=== PATIENT | female | born 1945 | race Caucasian/White ===

== ENCOUNTER 2017-09-29 12:20 | Inpatient (IN) | payer OTHER ==
--- NOTE | 2017-09-29 13:00 | EKG ---
Test Date: 2017-09-29 Test Time: 12:33:15 Epidemiology Investigator: CAROL MEASUREMENT RESULTS: Intervals: Rate: 94 NV: 144 QRSD: 68 QT: 380 QTc: 475 [place]: P: 80 NV: 144 QRS: 84 T: 90 INTERPRETIVE STATEMENTS: Normal sinus rhythm Nonspecific ST abnormality Abnormal ECG Compared to ECG 09/03/2017 08:04:17 ST (T wave) deviation now present Sinus tachycardia no longer present Electronically Signed On 09-29-17 13:00:18 CDT by Jose Patiño
--- NOTE | 2017-09-29 13:24 | RAD REPORT ---
EXAM DESCRIPTION: CT - Ct Stroke Brain Wo Cont - 09/29/2017 1:14 pm CLINICAL HISTORY: Confusion, altered consciousness. COMPARISON: 09/03/2017, 01/25/2016, 09/13/2011 TECHNIQUE: All CT scans are performed using dose optimization technique as appropriate and may inclu de automated exposure control or mA/KV adjustment according to patient size. FINDINGS: No intracranial hemorrhage, hydrocephalus or extra-axial fluid collection.Area of gliosis is seen in the right parietal lobe, compatible with prior infarct.No areas of brain edema or evidence of midline shift. Mild fluid is seen in both maxillary antra. The calvarium is intact. IMPRESSION: No acute intracranial abnormality. Mild fluid in both maxillary antra. Old right parietal lobe infarct. The findings were discussed with Dr. Ariza in the ER on 09/29/2017 at 1:21 p.m. by telephone..
--- NOTE | 2017-09-29 13:46 | RAD REPORT ---
EXAM DESCRIPTION: RAD - Chest Single View - 09/29/2017 1:39 pm CLINICAL HISTORY: Diarrhea, hypertension COMPARISON: 09/03/2017 FINDINGS: Portable technique limits examination quality. The lungs are grossly clear. The heart is normal in size. No displaced fractures.Mild aortic atherosc lerosis. IMPRESSION: No acute intrathoracic process suspected.
[2017-09-29] MEDS ORDERED: NA CHLORIDE 0.9% 1,000 ML ONE ×2 (13:54→17:22)
[2017-09-29 14:31] LABS: Absolute Lymphocytes (CBC) 1.1 K/uL (0.7-4.9); Absolute Monocytes 0.9 K/uL (0.1-1.3); Absolute Neutrophil 21.4 K/uL (1.8-8.0); Basophils % 0.2 % (0-1.3); Hematocrit 27.8 % (36.0-45.0); Lymphocytes % 4.8 % (15.3-44.8); MCV 87.7 fL (80-100); MPV 8.5 fL (7.6-11.3); Monocytes % 3.9 % (3.3-12.3); RBC Red Blood Cell Count 3.17 M/uL (3.86-4.86)
[2017-09-29 14:45] LABS: Protime INR 1.82
[2017-09-29 14:46] LABS: Bilirubin Direct 0.2 mg/dL (0-0.2); Bilirubin Total 0.9 mg/dL (0.3-1.2); Protein, Total 5.3 g/dL (6.0-8.3)
[2017-09-29 14:47] LABS: CKMB Creatine Kinase MB 2.8 ng/ml (0.3-4.0)
[2017-09-29 14:48] LABS: Potassium 3.9 mEq/L (3.6-5.0)
[2017-09-29 14:53] LABS: Anisocytosis 1+; Blood Morphology Comment NOTED (NOT SEEN); Platelet Estimate INCR; Platelets, Giant 3
[2017-09-29 14:57] LABS: Albumin 1.7 g/dL (3.2-5.5)
--- NOTE | 2017-09-29 15:11 | ER ---
Nurse's Notes [facility] Name: Celina Granger Age: 71 yrs Sex: Female : 1945 Arrival Date: 09/29/2017 Time: 12:33 Bed 3 Private MD: Diagnosis: Other specified sepsis;Metabolic acidemia, unspecified;Altered mental status, unspecified;Urinary tract infection, site not specified Presentation: 09/29 12:33 Presenting complaint: EMS states: Altered mental status since Friday. Also report aj patient is more pale than usual. Patient is alert and oriented X 2. detention reports HX of diarrhea x 2 months, with recent ABX TX. Transition of care: patient was not received from another setting of care. Onset of symptoms was September 27, 2017. Care prior to arrival: None. 12:33 Method Of Arrival: EMS: [facility] 12:33 Acuity: JESSE 3 aj Triage Assessment: 12:38 General: Appears in no apparent distress. ill, slender, Behavior is calm, cooperative. aj Pain: Denies pain. Neuro: Level of Consciousness is awake, confused, lethargic, Oriented to person, place. Cardiovascular: Capillary refill < 3 seconds in bilateral fingers. Respiratory: Airway is patent Respiratory effort is even, unlabored, Respiratory pattern is regular, symmetrical. GI: Parent/caregiver reports the patient having diarrhea. Derm: Skin is intact, is healthy with good turgor, Skin is pink, warm \T\ dry. normal. Historical: - Allergies: 12:38 No Known Allergies; aj - Home Meds: 12:38 acetaminophen 325 mg Oral tab 2 tabs every 4 hours [Active]; amlodipine 5 mg tab 1 tab aj once daily [Active]; amoxicillin-pot clavulanate 875-125 mg Oral tab 1 tab every 12 hours [Active]; Ativan 0.5 mg Oral tab 1 tab 3 times per day [Active]; aspirin 81 mg Oral TbEC 1 tab once daily [Active]; atorvastatin 40 mg Oral tab 1 tab once daily [Active]; carvedilol 12.5 mg Oral tab 1 tab 2 times per day [Active]; clopidogrel 75 mg Oral tab 1 tab once daily [Active]; Diflucan 200 mg Oral tab 2 tabs once daily [Active]; Colace 100 mg Oral cap 1 cap once daily [Active]; Flagyl 500 mg Oral tab 1 tab 3 times per day [Active]; ipratropium-albuterol 0.5 mg-3 mg(2.5 mg base)/3 mL Inhl nebu twice a day [Active]; loperamide 2 mg Oral tab 1 tabs every 6 hours [Active]; Phenergan Oral 25 mg every 8 hours [Active]; potassium chloride 20 mEq Oral TbER 1 tab once daily [Active]; Protonix 40 mg Oral TbEC 1 tab once daily [Active]; psyllium husk powder [Active]; sucralfate 1 gram/10 mL Oral susp 10 mL 4 times per day [Active]; tramadol 50 mg Oral tab 1 tab every 6 hours [Active]; zinc sulfate 220 mg Oral tab 1 cap twice a day [Active]; - PMHx: 12:38 Acute Kidney Failure; Anxiety; CAD; COPD; GERD; Hyperlipidemia; Hypertension; Irritable aj bowel syndrome; Anemia; - PSHx: 12:38 Cholecystectomy; aj - Immunization history:: Adult Immunizations up to date. - Social history:: Smoking status: Patient/guardian denies using tobacco. Screenin:41 Abuse screen: Denies threats or abuse. Denies injuries from another. Nutritional aj screening: No deficits noted. Tuberculosis screening: No symptoms or risk factors identified. Fall Risk None identified. Assessment: 12:41 Reassessment: See triage. aj 13:38 Reassessment: Patient appears in no apparent distress at this time. No changes from aj previously documented assessment. Patient and/or family updated on plan of care and expected duration. Pain level reassessed. Son is at bedside. Patient rotated to left side with blankets placed under right side. Provided another blanket. 18:13 Reassessment: Patient appears in no apparent distress at this time. No changes from aj previously documented assessment. Patient and/or family updated on plan of care and expected duration. Pain level reassessed. Patient is alert, oriented x 3, equal unlabored respirations, skin warm/dry/pink. Patient states symptoms have improved. Vital Signs: 12:38 BP 126 / 77; Pulse 91; Resp 25; Temp 98.0; Pulse Ox 94% on 2 lpm NC; Weight 52.16 kg; aj Height 5 ft. 2 in. (157.48 cm); 13:38 BP 106 / 91; Pulse 89; Resp 23; Pulse Ox 100% on 3 lpm NC; aj 15:08 BP 123 / 68; Pulse 94; Resp 20; Pulse Ox 100% on 3 lpm NC; aj 15:34 BP 119 / 85; Pulse 94; Resp 26; Pulse Ox 99% on 3 lpm NC; aj 18:05 BP 123 / 89; Pulse 96; Resp 18; Pulse Ox 98% on 3 lpm NC; aj 12:38 Body Mass Index 21.03 (52.16 kg, 157.48 cm) aj ED Course: 12:33 Patient arrived in ED. aj 12:35 Triage completed. aj 12:38 Arm band placed on left wrist. Patient placed in an exam room, on a stretcher, on aj oxygen, on quality assurance monitor body, on pulse oximetry. EKG completed in triage. Results shown to MD. 12:39 Ranjith Finney MD is Attending Physician. tw4 12:41 Patient has correct armband on for positive identification. Placed in gown. Bed in low aj position. Side rails up X2. bus monitor on. Pulse ox on. NIBP on. 12:41 Missed attempt(s): 22 gauge in left antecubital area. Bleeding controlled, band aid aj applied, catheter tip intact. 12:43 Sharmaine Verma, RN is Primary Nurse. aj 13:15 CT Stroke Brain w/o Contrast In Process Unspecified. EDMS 13:19 CT completed. Patient tolerated procedure well. Patient moved to CT via stretcher. ks Patient moved back from CT. 13:27 X-ray completed. Portable x-ray completed in exam room. Patient tolerated procedure jb2 well. 13:38 Inserted saline lock: 24 gauge in left hand, using aseptic technique. aj 13:39 Stroke CXR 1 View In Process Unspecified. EDMS 15:08 Straight cath inserted, using sterile technique, 16 Fr. Specimen obtained. Patient aj tolerated well. 15:09 Brisa Mcdonald MD is Hospitalizing Provider. tw4 15:19 Hospitalizing Provider role handed off by Brisa Mcdonald MD tw4 15:19 Davy Grossman MD is Hospitalizing Provider. tw4 18:13 No provider procedures requiring assistance completed. Patient admitted, IV remains in aj place. intact. Administered Medications: 13:44 Drug: NS 0.9% 1000 ml Route: IV; Rate: 1 bolus; Site: left hand; aj 16:43 Follow up: Response: No adverse reaction; IV Status: Completed infusion; IV Intake: aj 1000ml 15:18 Not Given (route changed): Rocephin (cefTRIAXone) 1 grams IM once aj 15:20 Drug: DiFLUcan 150 mg Route: PO; aj 16:42 Follow up: Response: No adverse reaction aj 15:21 Drug: Rocephin - (cefTRIAXone) 1 grams Route: IVPB; Infused Over: 30 mins; Site: left hand; 16:42 Follow up: Response: No adverse reaction; IV Status: Completed infusion; IV Intake: 10mlaj 17:10 Drug: LevaQUIN 750 mg Volume: 150 ml; Route: IVPB; Infused Over: 90 mins; Site: left hand; 18:14 Follow up: Response: No adverse reaction; IV Status: Infusion continued upon admission; aj IV Intake: 100ml Intake: 16:42 IV: 10ml; Total: 10ml. aj 16:43 IV: 1000ml; Total: 1010ml. aj 18:14 IV: 100ml; Total: 1110ml. aj Outcome: 15:11 Decision to Hospitalize by Provider. tw4 18:13 Admitted to Med/surg accompanied by tech, family with patient, via stretcher, room 231, aj Report called to Belia 18:13 Condition: stable 18:13 Instructed on the need for admit. 18:42 Patient left the ED. aj Signatures: Dispatcher [employer] Sharmaine Sandoval, Anup Asher RN, Nathan nj Wadley, Terrence, MD MD tw4
--- NOTE | 2017-09-29 15:11 | EDPHYS ---
Physician Documentation [facility] Name: Celina Granger Age: 71 yrs Sex: Female : 1945 Arrival Date: 09/29/2017 Time: 12:33 Bed 3 Private MD: ED Physician Ranjith Finney HPI: 09/29 13:18 This 71 yrs old Female presents to ER via EMS with complaints of Altered tw4 Mental Status. 13:18 The patient presents with decreased responsiveness. Onset: The symptoms/episode tw4 began/occurred today. Possible causes: unknown. Associated signs and symptoms: The patient has no apparent associated signs or symptoms. Current symptoms: In the emergency department the patient's symptoms have improved. Patient's baseline: Neuro: orientated to person, Motor: no deficits, Ambulation: unable to walk, Speech: normal for age. Unable to obtain HPI due to altered mental status. The patient has not experienced similar symptoms in the past. history from [facility] and son. Historical: - Allergies: 12:38 No Known Allergies; aj - Home Meds: 12:38 acetaminophen 325 mg Oral tab 2 tabs every 4 hours [Active]; amlodipine 5 mg tab 1 tab aj once daily [Active]; amoxicillin-pot clavulanate 875-125 mg Oral tab 1 tab every 12 hours [Active]; Ativan 0.5 mg Oral tab 1 tab 3 times per day [Active]; aspirin 81 mg Oral TbEC 1 tab once daily [Active]; atorvastatin 40 mg Oral tab 1 tab once daily [Active]; carvedilol 12.5 mg Oral tab 1 tab 2 times per day [Active]; clopidogrel 75 mg Oral tab 1 tab once daily [Active]; Diflucan 200 mg Oral tab 2 tabs once daily [Active]; Colace 100 mg Oral cap 1 cap once daily [Active]; Flagyl 500 mg Oral tab 1 tab 3 times per day [Active]; ipratropium-albuterol 0.5 mg-3 mg(2.5 mg base)/3 mL Inhl nebu twice a day [Active]; loperamide 2 mg Oral tab 1 tabs every 6 hours [Active]; Phenergan Oral 25 mg every 8 hours [Active]; potassium chloride 20 mEq Oral TbER 1 tab once daily [Active]; Protonix 40 mg Oral TbEC 1 tab once daily [Active]; psyllium husk powder [Active]; sucralfate 1 gram/10 mL Oral susp 10 mL 4 times per day [Active]; tramadol 50 mg Oral tab 1 tab every 6 hours [Active]; zinc sulfate 220 mg Oral tab 1 cap twice a day [Active]; - PMHx: 12:38 Acute Kidney Failure; Anxiety; CAD; COPD; GERD; Hyperlipidemia; Hypertension; Irritable aj bowel syndrome; Anemia; - PSHx: 12:38 Cholecystectomy; aj - Immunization history:: Adult Immunizations up to date. - Social history:: Smoking status: Patient/guardian denies using tobacco. ROS: 13:18 Constitutional: Negative for fever, chills, and weight loss, Eyes: Negative for injury, tw4 pain, redness, and discharge, Cardiovascular: Negative for chest pain, palpitations, and edema, Respiratory: Negative for shortness of breath, cough, wheezing, and pleuritic chest pain, Abdomen/GI: Negative for abdominal pain, nausea, vomiting, diarrhea, and constipation, Back: Negative for injury and pain. 13:18 Neuro: Positive for altered mental status, Negative for dizziness, gait disturbance, headache, hearing loss, tinnitus, tremor, visual changes. Exam: 13:20 Constitutional: This is a well developed, well nourished patient who is awake, alert, tw4 and in no acute distress. Head/Face: Normocephalic, atraumatic. Chest/axilla: Normal chest wall appearance and motion. Nontender with no deformity. No lesions are appreciated. Cardiovascular: Regular rate and rhythm with a normal S1 and S2. No gallops, murmurs, or rubs. Normal PMI, no JVD. No pulse deficits. Respiratory: Lungs have equal breath sounds bilaterally, clear to auscultation and percussion. No rales, rhonchi or wheezes noted. No increased work of breathing, no retractions or nasal flaring. Abdomen/GI: Soft, non-tender, with normal bowel sounds. No distension or tympany. No guarding or rebound. No evidence of tenderness throughout. Back: No spinal tenderness. No costovertebral tenderness. Full range of motion. 13:20 Neuro: Orientation: Not oriented to place, time, situation, Mentation: slow to respond, Memory: appropriate for stated age, Cranial nerves: CN II- XII are normal as tested, Motor: moves all fours. Vital Signs: 12:38 BP 126 / 77; Pulse 91; Resp 25; Temp 98.0; Pulse Ox 94% on 2 lpm NC; Weight 52.16 kg; aj Height 5 ft. 2 in. (157.48 cm); 13:38 BP 106 / 91; Pulse 89; Resp 23; Pulse Ox 100% on 3 lpm NC; aj 15:08 BP 123 / 68; Pulse 94; Resp 20; Pulse Ox 100% on 3 lpm NC; aj 15:34 BP 119 / 85; Pulse 94; Resp 26; Pulse Ox 99% on 3 lpm NC; aj 18:05 BP 123 / 89; Pulse 96; Resp 18; Pulse Ox 98% on 3 lpm NC; aj 12:38 Body Mass Index 21.03 (52.16 kg, 157.48 cm) aj MDM: 12:39 Patient medically screened. tw4 15:11 Differential Diagnosis: CVA, electrolyte abnormality, alcohol intoxication, pneumonia, tw4 UTI, volume depletion. Data reviewed: vital signs, nurses notes. Counseling: I had a detailed discussion with the patient and/or guardian regarding: the historical points, exam findings, and any diagnostic results supporting the discharge/admit diagnosis, lab results, radiology results. 16:50 Physician consultation: Davy Grossman MD was contacted at 15:15, regarding admission, tw4 need to evaluate the patient as soon as possible, and will see patient in inpatient room. Admission orders: after a detailed discussion of the patient's condition and case, the admit orders are written by me. 16:51 ED course: Pt remained stable in ED, was given antibiotics. will admit to ICU in light tw4 of acidosis. 09/29 12:55 Order name: Troponin (emerg Dept Use Only); Complete Time: 14:44 tw4 09/29 12:55 Order name: Hepatic Function; Complete Time: 15:00 tw4 09/29 12:55 Order name: Ckmb; Complete Time: 15:00 tw4 09/29 12:55 Order name: CPK; Complete Time: 15:00 tw4 09/29 12:55 Order name: BNP; Complete Time: 15:00 tw4 09/29 12:55 Order name: Basic Metabolic Panel; Complete Time: 15:00 tw4 09/29 12:55 Order name: CBC with Diff; Complete Time: 15:00 tw4 09/29 15:05 Interpretation: Abnormal. tw4 09/29 12:55 Order name: Protime (+inr); Complete Time: 15:00 tw4 09/29 12:55 Order name: Ptt, Activated; Complete Time: 15:00 tw4 09/29 12:55 Order name: Urine Microscopic Only; Complete Time: 16:40 tw4 09/29 12:55 Order name: CT Stroke Brain w/o Contrast; Complete Time: 14:30 tw4 09/29 12:55 Order name: Stroke CXR 1 View; Complete Time: 14:30 tw4 09/29 14:38 Order name: Manual Differential; Complete Time: 15:00 EDMS 09/29 15:17 Order name: Urine Dipstick--Ancillary (enter results) bd 09/29 12:55 Order name: EKG; Complete Time: 12:56 tw4 09/29 12:55 Order name: Accucheck; Complete Time: 13:44 tw4 09/29 12:55 Order name: Cardiac monitoring; Complete Time: 13:45 tw4 09/29 12:55 Order name: EKG - Nurse/Tech; Complete Time: 13:45 tw4 09/29 12:55 Order name: IV Saline Lock; Complete Time: 13:45 tw4 09/29 12:55 Order name: Labs collected and sent; Complete Time: 15:24 tw4 09/29 12:55 Order name: NPO; Complete Time: 13:45 tw4 09/29 12:55 Order name: O2 Per Protocol; Complete Time: 13:45 tw4 09/29 12:55 Order name: O2 Sat Monitoring; Complete Time: 13:45 tw4 09/29 12:55 Order name: Urine Dipstick-Ancillary (obtain specimen); Complete Time: 15:22 tw4 Administered Medications: 13:44 Drug: NS 0.9% 1000 ml Route: IV; Rate: 1 bolus; Site: left hand; aj 16:43 Follow up: Response: No adverse reaction; IV Status: Completed infusion; IV Intake: aj 1000ml 15:18 Not Given (route changed): Rocephin (cefTRIAXone) 1 grams IM once aj 15:20 Drug: DiFLUcan 150 mg Route: PO; aj 16:42 Follow up: Response: No adverse reaction aj 15:21 Drug: Rocephin - (cefTRIAXone) 1 grams Route: IVPB; Infused Over: 30 mins; Site: left hand; 16:42 Follow up: Response: No adverse reaction; IV Status: Completed infusion; IV Intake: 10mlaj 17:10 Drug: LevaQUIN 750 mg Volume: 150 ml; Route: IVPB; Infused Over: 90 mins; Site: left aj hand; 18:14 Follow up: Response: No adverse reaction; IV Status: Infusion continued upon admission; aj IV Intake: 100ml Disposition: 09/29/17 15:11 Hospitalization ordered by Davy Grossman for Inpatient Admission. Preliminary diagnosis are Other specified sepsis, Metabolic acidemia, unspecified, Altered mental status, unspecified, Urinary tract infection, site not specified. - Bed requested for Telemetry/MedSurg (Inpatient). - Status is Inpatient Admission. aj - Condition is Fair. - Problem is new. - Symptoms are unchanged. UTI on Admission? Yes Signatures: Dispatcher [employer] EDMS Ana Adkins Amanda RN RN Ranjith Ashley MD MD tw4 Corrections: (The following items were deleted from the chart) 15:23 12:55 Stroke Swallow Screen ordered. tw4 aj 16:51 15:11 Physician consultation: Brisa Mcdonald MD was contacted at 15:00, regarding tw4 admission, need to come to ED to see patient, need to evaluate the patient as soon as possible, and will see patient in ED, tw4
[2017-09-29 15:33] LABS: Urine Bacteria >50 /HPF (<20); Urine Culture Reflex Order REFLEXED
[2017-09-29] MEDS ORDERED: FLUCONAZOLE 100 MG TAB ONE (15:33)
[2017-09-29 15:34] LABS: Urine Yeast FEW (NONE SEEN); Urine Yeast with Hyphae PRESENT
[2017-09-29] MEDS ORDERED: CEFTRIAXONE/SWI 1gm 1 GM/10 ML SYR ONE (15:34)
[2017-09-29 17:07] LABS: Urine Blood 2+ (NEG); Urine Glucose NEGATIVE (NEG); Urine Protein 2+ (NEG); Urine pH 5.5 (5.0-7.0)
[2017-09-29] MEDS ORDERED: Levofloxacin 750mg IV 750 MG/150 ML BAG IV ONE (17:23)
[2017-09-29] MEDS ORDERED: IPRATROPIUM BROM 0.5MG/2.5ML NEB PRN (17:44)
[2017-09-29] MEDS ORDERED: ACETAMINOPHEN 500 MG TAB PO PRN (17:44)
[2017-09-29] MEDS ORDERED: ALBUTEROL 2.5 MG/3 ML NEB SOL NEB PRN (17:44)
[2017-09-29] MEDS ORDERED: Levofloxacin500mg IV 500 MG/100 ML BAG IV SCH (18:00)
--- NOTE | 2017-09-29 20:59 | P.HP ---
Certification for Inpatient Patient admitted to: Inpatient With expected LOS: >2 Midnights Practitioner: I am a practitioner with admitting privileges, knowledge of patient current condition, hospital course, and medical plan of care. Services: Services provided to patient in accordance with Admission requirements found in Title 42 Section 412.3 of the Code of Federal Regulations Patient History Date of Service: 09/29/17 Reason for admission: CONFUSION History of Present Illness: MS YARBROUGH HAS SEEN ME IN OFFICE LAST TIME IN MAY. SHE ENDED UP IN [facility] FOR PARTIAL BOWEL OBSTRUCTION, FROM THERE WITH CONSERVATIVE THERAPY SHE IMPROVED BUT WAS SENT TO [place] DR. MCKEON SAW HER SHE HAD UTI , ANEMIA DOWN TO HG OF 5.6 GM SHE ENDS UP HERE AT THIS HOSPITAL AND TAKEN CARE BY HOSPIALIST DOCTORS PATRICIA HARRIS AND LEORA, AND ID DOCTOR DR. MARKS. LAST TWO ADMISSIONS HERE I WAS NEVER CALLED IN TO TAKE CARE OF HER. I HAD NO IDEA THAT SHE WAS HERE UNTIL SHE CALLED ME FROM [facility] ASKING ME TO TAKE OVER HER MEDIATIONS THE [facility] WAS NOT DOING IT RIGHT. I E MAILED DR WHITTEN AT THAT TIME. THIS TIME I WAS CALLED BY ER DOCTOR WITH OBTUNDATION, HIGH WBC COUNT AND UTI AGAIN. I TALKED TO FAMILY. Allergies No Known Allergies Allergy (Verified 08/16/17 00:06) Home Medications: Atorvastatin Calcium [Lipitor] 1 tab PO BEDTIME 05/21/17 Clopidogrel Bisulfate [Plavix*] 1 tab PO DAILY 05/21/17 Acetaminophen 2 tab PO Q4HR PRN 08/16/17 Amlodipine [Norvasc*] 1 tab PO DAILY 08/16/17 Ascorbate Calcium [Vitamin C] 1 tab PO DAILY 08/16/17 Aspirin [Aspir-Low] 81 mg PO DAILY 08/16/17 Cod Liver/Zinc Oint [Desitin Ointment*] 1 lashonda TOP Q12HR 08/16/17 Guaifenesin 10 ml PO Q6HR PRN 08/16/17 Ipratropium/Albuterol Sulfate [Iprat-Albut 0.5-3(2.5) mg/3 ml] 1 amp IH BID Loperamide HCl [Imodium A-D] 2 mg PO Q6HR PRN 08/16/17 Lorazepam [Ativan*] 1 tab PO Q8HR PRN 08/16/17 Potassium Chloride 20 meq PO DAILY 08/16/17 Ranitidine [Zantac*] 1 tab PO BEDTIME 08/16/17 Sucralfate [Carafate] 1 gm PO ACHS 08/16/17 Tramadol HCl [Ultram] 1 tab PO Q6HR PRN 08/16/17 Amoxicillin/Potassium Clav [Augmentin 875-125 Tablet] 1 each PO BID #10 tablet 08/27/17 Arformoterol Tartrate [Brovana] 15 mcg NEB BIDRESP 30 Days vial.neb 08/27/17 Metoprolol Tartrate [Lopressor*] 12.5 mg PO BID 6AM 6PM #30 tab 08/27/17 Pantoprazole [Protonix Tab*] 40 mg PO BID #60 tab 08/27/17 - Past Medical/Surgical History Diabetic: No -: COPD -: High Cholesterol -: HTN -: anxiety -: depression -: Anxiety -: Depression -: Bilateral tubal ligation -: Appendectomy -: aortic bypass - Family History Father -: Heart disease, Hypertension - Social History Alcohol use: No CD- Drugs: No Caffeine use: Yes Review of Systems 10-point ROS is otherwise unremarkable General: Weakness, Malaise Neurological: Confusion (SHE DID RECOGNIZE BUT NOT ORIENTED TO TIME,PLACE AND MORE DETAILS LIKE AGE) Physical Examination - Vital Signs Temperature: 98.0 F Blood Pressure: 123/89 Pulse: 96 Respirations: 18 - Physical Exam General: Alert, Acute distress, Moderate distress HEENT: Atraumatic, PERRLA, Mucous membr. moist/pink, EOMI, Sclerae nonicteric Neck: Supple, 2+ carotid pulse no bruit, No LAD, Without JVD or thyroid abnormality Respiratory: Clear to auscultation bilaterally, Normal air movement Cardiovascular: Regular rate/rhythm, Normal S1 S2 Gastrointestinal: Normal bowel sounds, No tenderness Musculoskeletal: No tenderness Integumentary: No rashes Neurological: Normal gait, Normal speech, Normal strength at 5/5 x4 extr, Normal tone, Normal affect Lymphatics: No axilla or inguinal lymphadenopathy - Studies Laboratory Data (last 24 hrs) 09/29/17 15:05: Urine RBC 10-20 H, Urine WBC Tntc H, Ur Squamous Epith Cells 10- 20 H, Urine Bacteria >50 H, Urine Yeast Few, Ur Yeast w Hyphae Present, Urine Culture Reflexed Reflexed 09/29/17 14:16: PT 21.6 H, INR 1.82, APTT 62.5 H 09/29/17 14:05: WBC 23.5 H* D, RBC 3.17 L, Hgb 8.5 L, Hct 27.8 L, MCV 87.7, MCH 27.0, MCHC 30.7 L, RDW 21.1 H, Plt Count 532 H, MPV 8.5, Neutrophils % 91.1 H, Lymphocytes % 4.8 L, Monocytes % 3.9, Eosinophils % 0.0, Basophils % 0.2, Absolute Neutrophils 21.4 H, Segmented Neutrophils 91 H, Band Neutrophils 3 H, Absolute Lymphocytes 1.1, Lymphocytes 3 L, Monocytes 3, Absolute Monocytes 0.9, Absolute Eosinophils 0.0, Absolute Basophils 0.1, Clumped Platelets Few, Giant Platelets 3, Anisocytosis 1+, Morphology Comment Noted 09/29/17 14:05: B-Natriuretic Peptide 111 H 09/29/17 14:05: Sodium 136, Potassium 3.9, Chloride 114 H, Carbon Dioxide 11 L* , BUN 25 H, Creatinine 1.62 H, Estimated GFR 31 L, Glucose 89, Calcium 8.2 L, Total Bilirubin 0.9, Direct Bilirubin 0.2, AST 22, ALT 9 L, Alkaline Phosphatase 153 H, Creatine Kinase 27, CK-MB (CK-2) 2.8, Serum Total Protein 5.3 L, Albumin 1.7 L, Globulin 3.6 H, Albumin/Globulin Ratio 0.5 L 09/29/17 14:05: Rapid Troponin I < 0.03 Assessment and Plan - Problems (Diagnosis) (1) UTI (urinary tract infection) Current Visit: Yes Status: Acute Plan: IV CEFTRIAXONE AND LEVAQUIN I WILL DC LEVAQUIN FOR NOW IN THE PAST SHE HAS ENTEROCOCCI BUT WELL TREATED NOW WILL FU (2) Metabolic acidosis Current Visit: Yes Status: Acute Plan: WILL WAIT FOR ABG START ON BICARB DRIP IF NEED. PROGNOSIS IS POOR I TOLD THE FAMILY AND THEY ARE WELL AWARE THAT SHE MAY OR MAY NOT DO WELL. THEY WANT TO RESUME DNR STATUS. (3) Obtundation Current Visit: Yes Status: Acute (4) Weight loss Current Visit: Yes Status: Chronic Plan: SINCE ILLNESS WILL DO CT SCAN IF NOT DONE RECENLTY. (5) Debility Current Visit: Yes Status: Acute Plan: IV- PPN PICC LINE. (6) COPD (chronic obstructive pulmonary disease) Current Visit: Yes Status: Chronic Plan: RESUME NEBS PRN. (7) Anxiety disorder Current Visit: Yes Status: Acute - Advance Directives Does patient have a Living Will: No Does patient have a Durable POA for Healthcare: Yes
[2017-09-29] MEDS ORDERED: CEFTRIAXONE 1 GM/NS 50 ML 50 ML IV SCH (21:00)
[2017-09-29 21:59] LABS: Arterial Blood Carboxyhemoglob 1.3 % (0-1.5); Blood O2 Saturation 96.4 % (92-98.5)
[2017-09-29] MEDS: D5W 1,000 ML with NA BICARB 8.4% 100 MEQ IV SCH ×2 (22:00)
[2017-09-29] MEDS ORDERED: D5W 1,000 ML IV ONE (23:06)
[2017-09-29] MEDS ORDERED: SODIUM BICARB 50 MEQ/50ML VIAL ONE ×2 (23:10→23:12)
[2017-09-30 00:17] VITALS: BMI 21.0
[2017-09-30 05:50] LABS: Absolute Lymphocytes (CBC) 2.6 K/uL (0.7-4.9); Absolute Monocytes 2.1 K/uL (0.1-1.3); Absolute Neutrophil 20.1 K/uL (1.8-8.0); Basophils % 0.2 % (0-1.3); Hematocrit 24.7 % (36.0-45.0); Lymphocytes % 10.3 % (15.3-44.8); MCV 86.4 fL (80-100); MPV 8.7 fL (7.6-11.3); Monocytes % 8.5 % (3.3-12.3); RBC Red Blood Cell Count 2.85 M/uL (3.86-4.86)
[2017-09-30 05:51] LABS: Magnesium 1.5 mg/dL (1.8-2.5)
[2017-09-30 05:54] LABS: Potassium 3.5 mEq/L (3.6-5.0)
[2017-09-30] MEDS ORDERED: Magnesium Sulfate 2gm IVPB 2 G/50 ML BAG IV ONE (05:54)
[2017-09-30 06:39] LABS: Anisocytosis 1+; Blood Morphology Comment NOTED (NOT SEEN); Burr Cells 2+; Platelet Estimate INCR; Toxic Granulation 2+
[2017-09-30] MEDS ORDERED: NA CHLORIDE 0.9% 100 ML ONE (07:22)
[2017-09-30] MEDS ORDERED: VANCOMYCIN/NS 1 gm 1 GM/250 ML BAG IV ONE (08:00)
[2017-09-30] MEDS ORDERED: CEFTRIAXONE/SWI 1gm 1 GM/10 ML SYR IV SCH (09:00)
[2017-09-30] MEDS ORDERED: FAMOTIDINE 20 MG/2 ML VIAL IV SCH (09:00)
--- NOTE | 2017-09-30 10:01 | RAD REPORT ---
EXAM DESCRIPTION: US - Abdomen Exam Complete - 09/30/2017 7:08 am CLINICAL HISTORY: Abdominal pain COMPARISON: August 2017 cat scan FINDINGS: The liver has a normal echotexture. A gallstone is not seen. The gallbladder wall is not thickened. The biliary tree is normal caliber. The pancreas appears normal in size and echotexture. The right kidney measures 9 centimeters with a normal echotexture. The left kidney measures 9 centimeters with a normal echotexture. The spleen measures 7 centimeters. IMPRESSION: Unremarkable exam
[2017-09-30] MEDS: PIPER/TAZO/NS 2.25gm 2.25 GM/50 ML BAG IV SCH ×2 (12:19→16:27)
[2017-09-30] MEDS: D5W 1,000 ML with NA BICARB 8.4% 100 MEQ IV SCH ×2 (12:19)
--- NOTE | 2017-09-30 12:55 | P.PN ---
Subjective Date of Service: 09/30/17 Chief Complaint: WEAK, CONFUSED, NOT EATING WELL Subjective: No new changes Review of Systems 10-point ROS is otherwise unremarkable General: Weakness, Malaise Neurological: Confusion Physical Examination - Vital Signs Temperature: 98.8 F Blood Pressure: 122/76 Pulse: 119 Respirations: 16 Pulse Ox (%): 92 - Physical Exam General: Alert, Oriented x1, Cachectic, Mild distress, Confused HEENT: Atraumatic, PERRLA, EOMI Neck: Supple, JVD not distended Respiratory: Clear to auscultation bilaterally, Normal air movement Cardiovascular: Regular rate/rhythm, Normal S1 S2 Gastrointestinal: Normal bowel sounds, No tenderness Musculoskeletal: No tenderness Integumentary: No rashes Neurological: Normal speech, Normal tone, Normal affect Lymphatics: No axilla or inguinal lymphadenopathy - Studies Laboratory Data (last 24 hrs) 09/29/17 14:16: PT 21.6 H, INR 1.82, APTT 62.5 H 09/29/17 14:05: WBC 23.5 H* D, Hgb 8.5 L, Hct 27.8 L, Plt Count 532 H 09/29/17 14:05: B-Natriuretic Peptide 111 H 09/29/17 14:05: Sodium 136, Potassium 3.9, BUN 25 H, Creatinine 1.62 H, Glucose 89, Total Bilirubin 0.9, AST 22, ALT 9 L, Alkaline Phosphatase 153 H Medications List Reviewed: Yes Assessment And Plan - Current Problems (Diagnosis) (1) UTI (urinary tract infection) Current Visit: Yes Status: Acute Plan: IV CEFTRIAXONE AND LEVAQUIN I WILL DC LEVAQUIN FOR NOW IN THE PAST SHE HAS ENTEROCOCCI BUT WELL TREATED NOW WILL FU MIXED RUTHIE SO FAR IN CULTURE WBC HIGHER CHANGED TO ZOSYN AND VANCOMYCIN IV SONOGRAM NEGATIVE GB I SNORMAL. CT WAS DONE WITHIN A MONTH. (2) Metabolic acidosis Current Visit: Yes Status: Acute Plan: WILL WAIT FOR ABG START ON BICARB DRIP IF NEED. PROGNOSIS IS POOR I TOLD THE FAMILY AND THEY ARE WELL AWARE THAT SHE MAY OR MAY NOT DO WELL. THEY WANT TO RESUME DNR STATUS. (3) Obtundation Current Visit: Yes Status: Acute Plan: CHECK B12, ADD THIAMINE RESUME PPN (4) Weight loss Current Visit: Yes Status: Chronic Plan: SINCE ILLNESS WILL DO CT SCAN IF NOT DONE RECENLTY. ALBUMIN IS LOW FROM MALNOURISHMENT TPN ADDED. (5) Debility Current Visit: Yes Status: Acute Plan: IV- PPN PICC LINE. ABOVE. (6) COPD (chronic obstructive pulmonary disease) Current Visit: Yes Status: Chronic Plan: RESUME NEBS PRN. (7) Anxiety disorder Current Visit: Yes Status: Acute (8) Leukocytosis Current Visit: Yes Status: Acute Plan: ETIOLOGY IS UNCLEAR UTI IS LIKELY CAUSE NO OTHER SYSTEMS ARE SHOWING SYMPTOMS. BC 2 PENDING . RESUME BROAD SPECTRUM ABX CHECK BED SORE.
[2017-09-30] MEDS ORDERED: Levofloxacin500mg IV 500 MG/100 ML BAG IV SCH (17:00)
[2017-09-30] MEDS ORDERED: ENOXAPARIN 30 MG/0.3 ML SQ SCH (17:00)
[2017-10-01] MEDS ORDERED: Magnesium Sulfate 2gm IVPB 2 G/50 ML BAG IV ONE (00:34)
[2017-10-01] MEDS ORDERED: NA CHLORIDE 0.9% 100 ML ONE (01:39)
[2017-10-01] MEDS: PIPER/TAZO/NS 2.25gm 2.25 GM/50 ML BAG IV SCH ×4 (01:57→17:08)
[2017-10-01] MEDS: D5W 1,000 ML with NA BICARB 8.4% 100 MEQ IV SCH ×4 (05:18→17:08)
[2017-10-01] MEDS: AA 5%/D20W/ELECTROLYTES-TPN 2,000 ML, Lipids 20% 250 ML with MULTIVITAMINS INJ 10 ML IV SCH ×6 (05:19→17:08)
[2017-10-01 06:25] LABS: Absolute Lymphocytes (CBC) 1.5 K/uL (0.7-4.9); Absolute Monocytes 1.1 K/uL (0.1-1.3); Absolute Neutrophil 11.1 K/uL (1.8-8.0); Lymphocytes % 11.1 % (15.3-44.8); MCV 82.6 fL (80-100); MPV 8.3 fL (7.6-11.3); RBC Red Blood Cell Count 2.42 M/uL (3.86-4.86)
[2017-10-01 06:43] LABS: Magnesium 2.2 mg/dL (1.8-2.5)
[2017-10-01 06:44] LABS: Potassium 2.1 mEq/L (3.6-5.0)
[2017-10-01 07:30] LABS: Hematocrit 23.8 % (36.0-45.0)
[2017-10-01 08:13] LABS: Hematocrit 19.6 % (36.0-45.0)
[2017-10-01] MEDS ORDERED: SODIUM CHLORIDE 0.9% 10ML INJ IV PRN (08:38)
[2017-10-01 08:55] LABS: Anisocytosis 1+; Blood Morphology Comment NOTED (NOT SEEN); Platelet Estimate ADEQ
[2017-10-01 08:56] LABS: Basophilic Stippling 1+; Burr Cells 1+; Hypochromasia 1+
--- NOTE | 2017-10-01 08:56 | RAD REPORT ---
EXAM DESCRIPTION: RAD - Chest Single View - 10/01/2017 2:36 am CLINICAL HISTORY: PICC line placement. COMPARISON: None. FINDINGS: Portable chest was obtained following placement of a left upper extremity PICC line. The c atheter tip is in the SVC.
[2017-10-01] MEDS: VANCOMYCIN/NS 1 gm 1 GM/250 ML BAG IV SCH (09:56)
[2017-10-01] MEDS: PANTOPRAZOLE 40 MG INJ IVP SCH ×2 (09:56→21:07)
--- NOTE | 2017-10-01 14:54 | RAD REPORT ---
EXAM DESCRIPTION: MRI - Brain W/Wo Cont - 10/01/2017 2:27 pm CLINICAL HISTORY: Confusion/alteration of consciousness COMPARISON: Head CT September 29, 2017 TECHNIQUE: Axial, sagittal, and coronal magnetic images of the brain were obtained. 16 cc Magnevist administered intravenously. FINDINGS: No abnormal signal is present within the brain. Diffusion-weighted/ADC mapping demonstrates an area of abnormal signal within the right occipital/par ietal region measuring 2 centimeters. This is compatible with an acute/ subacute infarct. Additional abnormal signal in this region represents an old infarction. . The ventricles are normal caliber. No abnormal enhancement within the brain is seen. An extra-axial fluid collection is not seen. 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 October 01, 2017
[2017-10-01] MEDS ORDERED: D50W 25 GM/50 ML SYRINGE IV PRN (18:31)
[2017-10-01] MEDS ORDERED: GLUCAGON 1 MG/VIAL IM PRN (18:31)
[2017-10-01] MEDS ORDERED: ACETAMINOPHEN 325 MG TABLET PO PRN (20:53)
[2017-10-01] MEDS: METOPROLOL TAR 25 MG TAB PO SCH (21:00)
[2017-10-01] MEDS: MIRTAZAPINE 15 MG TAB PO SCH (21:19)
[2017-10-01] MEDS: ATORVASTATIN 40 MG TAB PO SCH (21:20)
--- NOTE | 2017-10-01 21:26 | P.PN ---
Subjective Date of Service: 10/01/17 Chief Complaint: WEAK, CONFUSED, NOT EATING WELL Subjective: Improving (SOMEWHAT MORE AWAKE.) Review of Systems 10-point ROS is otherwise unremarkable General: Weakness, Malaise Gastrointestinal: Hematochezia (MILD) Neurological: Confusion (THINKS SHE IS AT HOME. ) Physical Examination - Vital Signs Temperature: 98.9 F Blood Pressure: 110/56 Pulse: 93 Respirations: 16 Pulse Ox (%): 100 - Physical Exam General: Alert, Cachectic, Mild distress, Confused HEENT: Atraumatic, PERRLA, EOMI Neck: Supple, JVD not distended Respiratory: Clear to auscultation bilaterally, Normal air movement Cardiovascular: Regular rate/rhythm, Normal S1 S2 Gastrointestinal: Normal bowel sounds, No tenderness Musculoskeletal: No tenderness Integumentary: No rashes Neurological: Normal speech, Other (CONFUSED ABOUT TIME , PLACE AND PERSON. ), Abnormal strength (GEN DIFFUSE) Lymphatics: No axilla or inguinal lymphadenopathy - Studies Medications List Reviewed: Yes Assessment And Plan - Current Problems (Diagnosis) (1) UTI (urinary tract infection) Onset Date: 10/01/17 Current Visit: Yes Status: Acute Plan: IV CEFTRIAXONE AND LEVAQUIN I WILL DC LEVAQUIN FOR NOW IN THE PAST SHE HAS ENTEROCOCCI BUT WELL TREATED NOW WILL FU MIXED RUTHIE SO FAR IN CULTURE WBC HIGHER CHANGED TO ZOSYN AND VANCOMYCIN IV SONOGRAM NEGATIVE GB I SNORMAL. CT WAS DONE WITHIN A MONTH. WBC IS NORMAL CS PENDING ACIDOSIS HAS CLEARED. Qualifiers: Urinary tract infection type: acute cystitis Hematuria presence: without hematuria Qualified Code(s): N30.00 - Acute cystitis without hematuria (2) Metabolic acidosis Onset Date: 10/01/17 Current Visit: Yes Status: Acute Plan: WILL WAIT FOR ABG START ON BICARB DRIP IF NEED. PROGNOSIS IS POOR I TOLD THE FAMILY AND THEY ARE WELL AWARE THAT SHE MAY OR MAY NOT DO WELL. THEY WANT TO RESUME DNR STATUS. STOP BICARB DRIP (3) Obtundation Onset Date: 10/01/17 Current Visit: Yes Status: Acute Plan: CHECK B12, ADD THIAMINE RESUME PPN MRI DONE R OCCIPITO PARIETAL STROKE, INFARCT CONSULT PT WHEN MEDICALLY CAN. (4) Weight loss Onset Date: 10/01/17 Current Visit: Yes Status: Chronic Plan: SINCE ILLNESS WILL DO CT SCAN IF NOT DONE RECENLTY. ALBUMIN IS LOW FROM MALNOURISHMENT TPN ADDED. NOT EATING WELL START REMERON TO IMRPOVE APPETITE. (5) Debility Onset Date: 10/01/17 Current Visit: Yes Status: Acute Plan: IV- PPN PICC LINE. ABOVE. (6) COPD (chronic obstructive pulmonary disease) Onset Date: 10/01/17 Current Visit: Yes Status: Chronic Plan: RESUME NEBS PRN. (7) Anxiety disorder Onset Date: 10/01/17 Current Visit: Yes Status: Acute (8) Leukocytosis Current Visit: Yes Status: Acute Plan: ETIOLOGY IS UNCLEAR UTI IS LIKELY CAUSE NO OTHER SYSTEMS ARE SHOWING SYMPTOMS. BC 2 PENDING . RESUME BROAD SPECTRUM ABX CHECK BED SORE. (9) Colitis, ischemic Current Visit: Yes Status: Acute Plan: THIS IS POSSIBLE SHE HAS NEG C DIFF MILD ABDOMEN PAIN H OF HEAVY SMOKING AND MILD LOWER GI BLEED. SHE CAN'T PHYSICALLY AND MEDICALLY GO FOR COLONSCOPY TOO RISKY AT THIS POINT ADVISED CONSERVATIVE CARE. (10) Anemia Current Visit: Yes Status: Acute Plan: MILD LOWER GI BLEED REAL HG IS 7.8 AND NOT 6.7 PICC LINE REMOVAL OF DILUTED BLOOD IS SHOWING 6.7 G A FALSE NUMBER. WILL WATCH DAILY.
[2017-10-01] MEDS ORDERED: ALBUTEROL 2.5 MG/3 ML NEB SOL NEB SCH (22:00)
[2017-10-01] MEDS ORDERED: IPRATROPIUM BROM 0.5MG/2.5ML IH SCH (22:00)
[2017-10-01 23:01] LABS: RBC Red Blood Cell Count 2.39 M/uL (3.86-4.86)
[2017-10-01 23:30] LABS: Transferrin < 70 mg/dL (192-382)
[2017-10-02] MEDS: PIPER/TAZO/NS 2.25gm 2.25 GM/50 ML BAG IV SCH ×4 (00:32→17:52)
[2017-10-02] MEDS: METOPROLOL TAR 25 MG TAB PO SCH ×4 (00:35→21:37)
[2017-10-02] MEDS: INSULIN -REGULAR HUMAN 50 UNIT/0.5 ML ML SQ SCH ×4 (06:00→17:57)
[2017-10-02 07:15] LABS: Hematocrit 21.8 % (36.0-45.0)
[2017-10-02 07:42] LABS: Potassium 1.7 mEq/L (3.6-5.0)
[2017-10-02] MEDS: ALBUTEROL 2.5 MG/3 ML NEB SOL NEB SCH ×2 (07:42→19:53)
[2017-10-02] MEDS: IPRATROPIUM BROM 0.5MG/2.5ML IH SCH ×2 (07:42→19:53)
[2017-10-02] MEDS: POTASSIUM CL 40 MEQ in NA CHLORIDE 0.9% 500 ML IV SCH ×2 (08:13→12:18)
[2017-10-02] MEDS: PANTOPRAZOLE 40 MG INJ IVP SCH ×2 (09:43→21:38)
[2017-10-02 09:53] LABS: Absolute Lymphocytes (CBC) 2.6 K/uL (0.7-4.9); Absolute Monocytes 1.3 K/uL (0.1-1.3); Absolute Neutrophil 9.7 K/uL (1.8-8.0); Basophils % 0.1 % (0-1.3); Eosinophils % 0.2 % (0-4.4); Lymphocytes % 19.3 % (15.3-44.8); MCH 28.6 pg (27.0-35.0); MCV 82.9 fL (80-100); MPV 8.6 fL (7.6-11.3); Monocytes % 9.3 % (3.3-12.3); RBC Red Blood Cell Count 2.64 M/uL (3.86-4.86)
--- NOTE | 2017-10-02 10:08 | EKG ---
Test Date: 2017-10-02 Test Time: 00:27:36 Vocational Nurse Lvn: RT T MEASUREMENT RESULTS: Intervals: Rate: 138 [place]: 152 QRSD: 66 QT: 270 QTc: 409 [place]: P: 74 [place]: 152 QRS: 63 T: -86 INTERPRETIVE STATEMENTS: Sinus tachycardia ST & T wave abnormality, consider inferior ischemia ST & T wave abnormality, consider anterolateral ischemia Abnormal ECG Compared to ECG 09/29/2017 12:33:15 Possible ischemia now present Sinus rhythm no longer present ST (T wave) deviation still present Electronically Signed On 10-02-17 10:07:39 CDT by Tyrell Jean-Baptiste
[2017-10-02] MEDS: AA 5%/D20W/ELECTROLYTES-TPN 2,000 ML, Lipids 20% 250 ML with MULTIVITAMINS INJ 10 ML IV SCH ×3 (17:52)
[2017-10-02] MEDS: VANCOMYCIN/NS 1 gm 1 GM/250 ML BAG IV SCH (20:00)
--- NOTE | 2017-10-02 21:33 | P.PN ---
Subjective Date of Service: 10/02/17 Chief Complaint: WEAK, CONFUSED, NOT EATING WELL Subjective: Improving (LOOKS AND FEELS BETTER, STILL NOT EATING.) Review of Systems 10-point ROS is otherwise unremarkable General: Weakness, Malaise Neurological: Confusion, As per HPI Physical Examination - Vital Signs Temperature: 97.8 F Blood Pressure: 116/65 Pulse: 111 Respirations: 18 Pulse Ox (%): 100 - Physical Exam General: Alert, Cachectic, Moderate distress HEENT: Atraumatic, PERRLA, EOMI Neck: Supple, JVD not distended Respiratory: Clear to auscultation bilaterally, Normal air movement Cardiovascular: Regular rate/rhythm, Normal S1 S2 Gastrointestinal: Normal bowel sounds, No tenderness Musculoskeletal: No tenderness Integumentary: No rashes Neurological: Normal speech, Normal tone, Normal affect Lymphatics: No axilla or inguinal lymphadenopathy - Studies Microbiology Data (last 24 hrs): 09/29/17 15:05 Clean Catch Urine [place] Count - Final >100,000 CFU/ML. 09/29/17 15:05 Clean Catch Urine - Final Escherichia Coli Medications List Reviewed: Yes Assessment And Plan - Current Problems (Diagnosis) (1) UTI (urinary tract infection) Onset Date: 10/01/17 Current Visit: Yes Status: Acute Plan: IV CEFTRIAXONE AND LEVAQUIN I WILL DC LEVAQUIN FOR NOW IN THE PAST SHE HAS ENTEROCOCCI BUT WELL TREATED NOW WILL FU MIXED RUTHIE SO FAR IN CULTURE WBC HIGHER CHANGED TO ZOSYN AND VANCOMYCIN IV SONOGRAM NEGATIVE GB I SNORMAL. CT WAS DONE WITHIN A MONTH. WBC IS NORMAL CS PENDING ACIDOSIS HAS CLEARED. E COLI SENSITIVE TO ROCEPHIN STOP VANCOMYCIN AND ZOSYN BC 2 NEG C DIFF NEG. Qualifiers: Urinary tract infection type: acute cystitis Hematuria presence: without hematuria Qualified Code(s): N30.00 - Acute cystitis without hematuria (2) Metabolic acidosis Onset Date: 10/01/17 Current Visit: Yes Status: Acute Plan: WILL WAIT FOR ABG START ON BICARB DRIP IF NEED. PROGNOSIS IS POOR I TOLD THE FAMILY AND THEY ARE WELL AWARE THAT SHE MAY OR MAY NOT DO WELL. THEY WANT TO RESUME DNR STATUS. STOP BICARB DRIP (3) Obtundation Onset Date: 10/01/17 Current Visit: Yes Status: Acute Plan: CHECK B12, ADD THIAMINE RESUME PPN MRI DONE R OCCIPITO PARIETAL STROKE, INFARCT CONSULT PT WHEN MEDICALLY CAN. STABLE FOR NOW (4) Weight loss Onset Date: 10/01/17 Current Visit: Yes Status: Chronic Plan: SINCE ILLNESS WILL DO CT SCAN IF NOT DONE RECENLTY. ALBUMIN IS LOW FROM MALNOURISHMENT TPN ADDED. NOT EATING WELL START REMERON TO IMRPOVE APPETITE. (5) Debility Onset Date: 10/01/17 Current Visit: Yes Status: Acute Plan: IV- PPN PICC LINE. ABOVE. (6) COPD (chronic obstructive pulmonary disease) Onset Date: 10/01/17 Current Visit: Yes Status: Chronic Plan: RESUME NEBS PRN. (7) Anxiety disorder Onset Date: 10/01/17 Current Visit: Yes Status: Acute (8) Leukocytosis Current Visit: Yes Status: Acute Plan: ETIOLOGY IS UNCLEAR UTI IS LIKELY CAUSE NO OTHER SYSTEMS ARE SHOWING SYMPTOMS. BC 2 PENDING . RESUME BROAD SPECTRUM ABX CHECK BED SORE. (9) Colitis, ischemic Current Visit: Yes Status: Acute Plan: THIS IS POSSIBLE SHE HAS NEG C DIFF MILD ABDOMEN PAIN H OF HEAVY SMOKING AND MILD LOWER GI BLEED. SHE CAN'T PHYSICALLY AND MEDICALLY GO FOR COLONSCOPY TOO RISKY AT THIS POINT ADVISED CONSERVATIVE CARE. (10) Anemia Current Visit: Yes Status: Acute Plan: MILD LOWER GI BLEED REAL HG IS 7.8 AND NOT 6.7 PICC LINE REMOVAL OF DILUTED BLOOD IS SHOWING 6.7 G A FALSE NUMBER. WILL WATCH DAILY. LAB SHOWS ANEMIA OF CHRONIC DISEASE FERRITIN HIGH FROM ACUTE PHASE REACTION TIBS AND IRON SAT ARE LOW SUGGESIVE OF ANEMIA OF CHR DISEASE B12 NORMAL SPEP PENDING LDH NORMAL - RULES OUT HEMOLYSIS. Qualifiers: Anemia type: other cause (11) Hypokalemia Current Visit: Yes Status: Acute Plan: FROM CORRECTION OF METABOLIC ACIDOSIS K REPLACE CHECK DAILY AND ADJUST TPN IF NEED SHE IS NOT EATING SHE HAS NOT WANTED G TUBE PER DIRECTIVE.
[2017-10-02] MEDS: ATORVASTATIN 40 MG TAB PO SCH (21:36)
[2017-10-02] MEDS: MIRTAZAPINE 15 MG TAB PO SCH (21:36)
[2017-10-02] MEDS: KCL 20 MEQ/100 mL IVPB 20 MEQ/100 ML BAG IV SCH ×2 (22:03→23:56)
[2017-10-03] MEDS: KCL 20 MEQ/100 mL IVPB 20 MEQ/100 ML BAG IV SCH ×2 (01:44→21:36)
[2017-10-03] MEDS: INSULIN -REGULAR HUMAN 50 UNIT/0.5 ML ML SQ SCH ×4 (06:23→18:00)
[2017-10-03 06:48] LABS: Absolute Lymphocytes (CBC) 3.6 K/uL (0.7-4.9); Absolute Monocytes 1.3 K/uL (0.1-1.3); Absolute Neutrophil 8.5 K/uL (1.8-8.0); Basophils % 0.5 % (0-1.3); Eosinophils % 1.2 % (0-4.4); Lymphocytes % 26.7 % (15.3-44.8); MCH 28.9 pg (27.0-35.0); MCV 81.9 fL (80-100); MPV 8.8 fL (7.6-11.3); Monocytes % 9.4 % (3.3-12.3); RBC Red Blood Cell Count 2.31 M/uL (3.86-4.86)
[2017-10-03 06:53] LABS: Hematocrit 18.9 % (36.0-45.0)
[2017-10-03] MEDS ORDERED: CEFTRIAXONE 1 GM/NS 50 ML 1 GM/50 ML BAG IV SCH (09:00)
[2017-10-03] MEDS: PANTOPRAZOLE 40 MG INJ IVP SCH ×2 (10:18→21:34)
[2017-10-03] MEDS: LACTOBACILLUS/ACIDOPHILUS TAB PO SCH ×3 (10:18→21:35)
[2017-10-03] MEDS: METOPROLOL TAR 25 MG TAB PO SCH ×2 (10:18→21:34)
[2017-10-03] MEDS: CEFTRIAXONE/SWI 1gm 1 GM/10 ML SYR IV SCH ×2 (10:19→21:34)
[2017-10-03] MEDS ORDERED: NA CHLORIDE 0.9% 250 ML ONE ×2 (11:51→15:39)
[2017-10-03] MEDS: ALBUTEROL 2.5 MG/3 ML NEB SOL NEB SCH ×2 (12:21→21:39)
[2017-10-03] MEDS: IPRATROPIUM BROM 0.5MG/2.5ML IH SCH ×2 (12:22→21:39)
--- NOTE | 2017-10-03 13:41 | P.PN ---
Subjective Date of Service: 10/03/17 Chief Complaint: WEAK, CONFUSED, NOT EATING WELL Subjective: Improving (ATE A LITTLE TODAY.) Review of Systems 10-point ROS is otherwise unremarkable General: Weakness, Malaise Neurological: Confusion (WITH PLACE AND TIME. ) Physical Examination - Vital Signs Temperature: 96.5 F Blood Pressure: 103/59 Pulse: 107 Respirations: 18 Pulse Ox (%): 100 - Physical Exam General: Alert, Cachectic, Mild distress HEENT: Atraumatic, PERRLA, EOMI Neck: Supple, JVD not distended Respiratory: Clear to auscultation bilaterally, Normal air movement Cardiovascular: Regular rate/rhythm, Normal S1 S2 Gastrointestinal: Normal bowel sounds Musculoskeletal: No tenderness Integumentary: No rashes Neurological: Normal speech, Normal tone, Normal affect Lymphatics: No axilla or inguinal lymphadenopathy - Studies Medications List Reviewed: Yes Assessment And Plan - Current Problems (Diagnosis) (1) UTI (urinary tract infection) Onset Date: 10/01/17 Current Visit: Yes Status: Acute Plan: IV CEFTRIAXONE AND LEVAQUIN I WILL DC LEVAQUIN FOR NOW IN THE PAST SHE HAS ENTEROCOCCI BUT WELL TREATED NOW WILL FU MIXED RUTHIE SO FAR IN CULTURE WBC HIGHER CHANGED TO ZOSYN AND VANCOMYCIN IV SONOGRAM NEGATIVE GB I SNORMAL. CT WAS DONE WITHIN A MONTH. WBC IS NORMAL CS PENDING ACIDOSIS HAS CLEARED. E COLI SENSITIVE TO ROCEPHIN STOP VANCOMYCIN AND ZOSYN BC 2 NEG C DIFF NEG. Qualifiers: Urinary tract infection type: acute cystitis Hematuria presence: without hematuria Qualified Code(s): N30.00 - Acute cystitis without hematuria (2) Metabolic acidosis Onset Date: 10/01/17 Current Visit: Yes Status: Acute Plan: WILL WAIT FOR ABG START ON BICARB DRIP IF NEED. PROGNOSIS IS POOR I TOLD THE FAMILY AND THEY ARE WELL AWARE THAT SHE MAY OR MAY NOT DO WELL. THEY WANT TO RESUME DNR STATUS. STOP BICARB DRIP (3) Obtundation Onset Date: 10/01/17 Current Visit: Yes Status: Acute Plan: CHECK B12, ADD THIAMINE RESUME PPN MRI DONE R OCCIPITO PARIETAL STROKE, INFARCT CONSULT PT WHEN MEDICALLY CAN. STABLE FOR NOW GRADUAL IMPROVEMENT. (4) Weight loss Onset Date: 10/01/17 Current Visit: Yes Status: Chronic Plan: SINCE ILLNESS WILL DO CT SCAN IF NOT DONE RECENLTY. ALBUMIN IS LOW FROM MALNOURISHMENT TPN ADDED. NOT EATING WELL START REMERON TO IMRPOVE APPETITE. (5) Debility Onset Date: 10/01/17 Current Visit: Yes Status: Acute Plan: IV- PPN PICC LINE. ABOVE. (6) COPD (chronic obstructive pulmonary disease) Onset Date: 10/01/17 Current Visit: Yes Status: Chronic Plan: RESUME NEBS PRN. (7) Anxiety disorder Onset Date: 10/01/17 Current Visit: Yes Status: Acute (8) Leukocytosis Current Visit: Yes Status: Acute Plan: ETIOLOGY IS UNCLEAR UTI IS LIKELY CAUSE NO OTHER SYSTEMS ARE SHOWING SYMPTOMS. BC 2 PENDING . RESUME BROAD SPECTRUM ABX CHECK BED SORE. (9) Colitis, ischemic Current Visit: Yes Status: Acute Plan: THIS IS POSSIBLE SHE HAS NEG C DIFF MILD ABDOMEN PAIN H OF HEAVY SMOKING AND MILD LOWER GI BLEED. SHE CAN'T PHYSICALLY AND MEDICALLY GO FOR COLONSCOPY TOO RISKY AT THIS POINT ADVISED CONSERVATIVE CARE. (10) Anemia Current Visit: Yes Status: Acute Plan: MILD LOWER GI BLEED REAL HG IS 7.8 AND NOT 6.7 PICC LINE REMOVAL OF DILUTED BLOOD IS SHOWING 6.7 G A FALSE NUMBER. WILL WATCH DAILY. LAB SHOWS ANEMIA OF CHRONIC DISEASE FERRITIN HIGH FROM ACUTE PHASE REACTION TIBS AND IRON SAT ARE LOW SUGGESIVE OF ANEMIA OF CHR DISEASE B12 NORMAL SPEP PENDING LDH NORMAL - RULES OUT HEMOLYSIS. Qualifiers: Anemia type: other cause (11) Hypokalemia Current Visit: Yes Status: Acute Plan: FROM CORRECTION OF METABOLIC ACIDOSIS K REPLACE CHECK DAILY AND ADJUST TPN IF NEED SHE IS NOT EATING SHE HAS NOT WANTED G TUBE PER DIRECTIVE. (12) Hypocalcemia Current Visit: Yes Status: Acute Plan: THIS IS A FALSE LOW NUMBER. CORRECTED CALCIUM IS MORE THAN 7 WITH HYPOALBUMINEMIA FROM MALNUTRITION. RESUME PPN
[2017-10-03] MEDS: AA 5%/D20W/ELECTROLYTES-TPN 2,000 ML, Lipids 20% 250 ML with MULTIVITAMINS INJ 10 ML IV SCH ×3 (18:17)
[2017-10-03] MEDS ORDERED: KCL 20 MEQ/100 mL IVPB 40 MEQ/200 ML BAG IV ONE (20:25)
[2017-10-03 21:20] LABS: Hematocrit 31.1 % (36.0-45.0)
[2017-10-03] MEDS: MIRTAZAPINE 15 MG TAB PO SCH (21:34)
[2017-10-03] MEDS: ATORVASTATIN 40 MG TAB PO SCH (21:35)
[2017-10-04] MEDS: INSULIN -REGULAR HUMAN 50 UNIT/0.5 ML ML SQ SCH ×4 (06:00→17:44)
[2017-10-04 06:54] LABS: Absolute Lymphocytes (CBC) 3.8 K/uL (0.7-4.9); Absolute Monocytes 1.6 K/uL (0.1-1.3); Absolute Neutrophil 10.2 K/uL (1.8-8.0); Basophils % 0.3 % (0-1.3); Eosinophils % 2.6 % (0-4.4); Hematocrit 33.4 % (36.0-45.0); Lymphocytes % 23.9 % (15.3-44.8); MCH 28.5 pg (27.0-35.0); MCV 84.2 fL (80-100); MPV 8.5 fL (7.6-11.3); Monocytes % 9.8 % (3.3-12.3); RBC Red Blood Cell Count 3.96 M/uL (3.86-4.86)
[2017-10-04 07:14] LABS: BUN Blood Urea Nitrogen 13 mg/dL (6-20); Bicarbonate 29 mEq/L (21-31); Glomerular Filtration Rate > 90 mL/min (=/>90); Glucose Level 74 mg/dL (65-120); Potassium 3.1 mEq/L (3.6-5.0); Sodium Level 135 mEq/L (135-145)
[2017-10-04] MEDS: ALBUTEROL 2.5 MG/3 ML NEB SOL NEB SCH ×2 (07:48→19:56)
[2017-10-04] MEDS: IPRATROPIUM BROM 0.5MG/2.5ML IH SCH ×2 (07:48→19:56)
[2017-10-04] MEDS ORDERED: Magnesium Sulfate 2gm IVPB 2 G/50 ML BAG IV ONE (09:00)
[2017-10-04] MEDS: THIAMINE 200 MG/2 ML INJ IVP SCH (09:00)
[2017-10-04] MEDS: KCL 20 MEQ/100 mL IVPB 20 MEQ/100 ML BAG IV SCH ×3 (09:09→22:07)
[2017-10-04] MEDS: METOPROLOL TAR 25 MG TAB PO SCH ×2 (09:09→22:05)
[2017-10-04] MEDS: PANTOPRAZOLE 40 MG INJ IVP SCH ×2 (09:09→22:06)
[2017-10-04] MEDS: LACTOBACILLUS/ACIDOPHILUS TAB PO SCH ×3 (09:09→22:06)
[2017-10-04] MEDS ORDERED: NA CHLORIDE 0.9% 250 ML ONE (09:33)
--- NOTE | 2017-10-04 11:31 | RAD REPORT ---
EXAM DESCRIPTION: RAD - Chest Single View - 10/04/2017 2:09 am CLINICAL HISTORY: PICC line placement. COMPARISON: 10/01/2017 FINDINGS: Portable technique limits examination quality. The tip of the left-sided PICC line is in the brachiocephalic vein.
--- NOTE | 2017-10-04 11:37 | RAD REPORT ---
EXAM DESCRIPTION: RAD - Chest Single View - 10/04/2017 4:12 am CLINICAL HISTORY: PICC line placement. COMPARISON: None. FINDINGS: Portable chest was obtained following placement of a right upper extremity PICC line. The catheter tip is in the SVC.
[2017-10-04] MEDS: PIPER/TAZO/NS 2.25gm 2.25 GM/50 ML BAG IV SCH ×3 (12:00→17:55)
--- NOTE | 2017-10-04 14:40 | P.PN ---
Subjective Date of Service: 10/04/17 Chief Complaint: CONFUSED ALL NIGHT, PULLED OUT PICC LINE, NOT EATING Subjective: Worsening (TALKED TO DAUGHTER TODAY. FAMILY CAN'T SEE HER IN THIS STAGE. SHE DID NOT WANT TO LIVE LIKE THIS PER HER DAUGHTER. SHE HAS DNR STATUS AND HAS NOT WANTED G TUBE .) Review of Systems General: Weakness, Malaise Gastrointestinal: Diarrhea, Hematochezia Neurological: Confusion, As per HPI Physical Examination - Vital Signs Temperature: 98.2 F Blood Pressure: 123/74 Pulse: 78 Respirations: 18 Pulse Ox (%): 94 - Physical Exam General: Alert, Mild distress, Confused HEENT: Atraumatic, PERRLA, EOMI Neck: Supple, JVD not distended Respiratory: Clear to auscultation bilaterally, Normal air movement Cardiovascular: Regular rate/rhythm, Normal S1 S2 Gastrointestinal: Normal bowel sounds, No tenderness Musculoskeletal: No tenderness Integumentary: No rashes Neurological: Other (ALTERED SENSORIUM.), Abnormal strength (POWER DOWN TO 3/4 OVER FIVE. ), Abnormal tone (DIFFUSE LOW ) Lymphatics: No axilla or inguinal lymphadenopathy - Studies Medications List Reviewed: Yes Assessment And Plan - Current Problems (Diagnosis) (1) UTI (urinary tract infection) Onset Date: 10/01/17 Current Visit: Yes Status: Acute Plan: IV CEFTRIAXONE AND LEVAQUIN I WILL DC LEVAQUIN FOR NOW IN THE PAST SHE HAS ENTEROCOCCI BUT WELL TREATED NOW WILL FU MIXED RUTHIE SO FAR IN CULTURE WBC HIGHER CHANGED TO ZOSYN AND VANCOMYCIN IV SONOGRAM NEGATIVE GB I SNORMAL. CT WAS DONE WITHIN A MONTH. WBC IS NORMAL CS PENDING ACIDOSIS HAS CLEARED. E COLI SENSITIVE TO ROCEPHIN STOP VANCOMYCIN AND ZOSYN BC 2 NEG C DIFF NEG. Qualifiers: Urinary tract infection type: acute cystitis Hematuria presence: without hematuria Qualified Code(s): N30.00 - Acute cystitis without hematuria (2) Metabolic acidosis Onset Date: 10/01/17 Current Visit: Yes Status: Acute Plan: WILL WAIT FOR ABG START ON BICARB DRIP IF NEED. PROGNOSIS IS POOR I TOLD THE FAMILY AND THEY ARE WELL AWARE THAT SHE MAY OR MAY NOT DO WELL. THEY WANT TO RESUME DNR STATUS. STOP BICARB DRIP (3) Obtundation Onset Date: 10/01/17 Current Visit: Yes Status: Acute Plan: CHECK B12, ADD THIAMINE RESUME PPN MRI DONE R OCCIPITO PARIETAL STROKE, INFARCT CONSULT PT WHEN MEDICALLY CAN. STABLE FOR NOW GRADUAL IMPROVEMENT. WBC IS HIGHER TODAY CHANGE BACK TO ZOSYN I SEE NO REASON FOR A CHANGE BUT STILL WBC WENT HIGHER AND SHE CLINICALLY GOT WORSE. THIS IS WHY I AM BROADENING SPECTRUM OF ABX. SHE IS CLINICALLY NOT IMPROVING FAMILY IS ASKING FOR KEEPING HER COMFORTABLE AND IF BY FRIDAY SHE DOES NOT IMPROVE , THEY MAY CONSIDER HOSPICE FOR DEBILITY, CVA, INFECTION ETC. (4) Weight loss Onset Date: 10/01/17 Current Visit: Yes Status: Chronic Plan: SINCE ILLNESS WILL DO CT SCAN IF NOT DONE RECENLTY. ALBUMIN IS LOW FROM MALNOURISHMENT TPN ADDED. NOT EATING WELL START REMERON TO IMRPOVE APPETITE. (5) Debility Onset Date: 10/01/17 Current Visit: Yes Status: Acute Plan: IV- PPN PICC LINE. ABOVE. (6) COPD (chronic obstructive pulmonary disease) Onset Date: 10/01/17 Current Visit: Yes Status: Chronic Plan: RESUME NEBS PRN. (7) Anxiety disorder Onset Date: 10/01/17 Current Visit: Yes Status: Acute (8) Leukocytosis Current Visit: Yes Status: Acute Plan: ETIOLOGY IS UNCLEAR UTI IS LIKELY CAUSE NO OTHER SYSTEMS ARE SHOWING SYMPTOMS. BC 2 PENDING . RESUME BROAD SPECTRUM ABX CHECK BED SORE. (9) Colitis, ischemic Current Visit: Yes Status: Acute Plan: THIS IS POSSIBLE SHE HAS NEG C DIFF MILD ABDOMEN PAIN H OF HEAVY SMOKING AND MILD LOWER GI BLEED. SHE CAN'T PHYSICALLY AND MEDICALLY GO FOR COLONSCOPY TOO RISKY AT THIS POINT ADVISED CONSERVATIVE CARE. (10) Anemia Current Visit: Yes Status: Acute Plan: MILD LOWER GI BLEED REAL HG IS 7.8 AND NOT 6.7 PICC LINE REMOVAL OF DILUTED BLOOD IS SHOWING 6.7 G A FALSE NUMBER. WILL WATCH DAILY. LAB SHOWS ANEMIA OF CHRONIC DISEASE FERRITIN HIGH FROM ACUTE PHASE REACTION TIBS AND IRON SAT ARE LOW SUGGESIVE OF ANEMIA OF CHR DISEASE B12 NORMAL SPEP PENDING LDH NORMAL - RULES OUT HEMOLYSIS. Qualifiers: Anemia type: other cause (11) Hypokalemia Current Visit: Yes Status: Acute Plan: FROM CORRECTION OF METABOLIC ACIDOSIS K REPLACE CHECK DAILY AND ADJUST TPN IF NEED SHE IS NOT EATING SHE HAS NOT WANTED G TUBE PER DIRECTIVE. (12) Hypocalcemia Current Visit: Yes Status: Acute Plan: THIS IS A FALSE LOW NUMBER. CORRECTED CALCIUM IS MORE THAN 7 WITH HYPOALBUMINEMIA FROM MALNUTRITION. RESUME PPN
[2017-10-04] MEDS: AA 5%/D20W/ELECTROLYTES-TPN 2,000 ML, Lipids 20% 250 ML with MULTIVITAMINS INJ 10 ML IV SCH ×3 (17:00)
[2017-10-04 19:30] LABS: Magnesium 1.6 mg/dL (1.8-2.5)
[2017-10-04] MEDS ORDERED: MAGNESIUM SULFATE 1 gm IVPB 1 GM/100 ML BAG IV ONE (20:00)
[2017-10-04] MEDS: QUETIAPINE 25 MG TAB PO SCH (22:05)
[2017-10-05] MEDS: INSULIN -REGULAR HUMAN 50 UNIT/0.5 ML ML SQ SCH ×5 (00:51→23:43)
[2017-10-05] MEDS: PIPER/TAZO/NS 2.25gm 2.25 GM/50 ML BAG IV SCH ×4 (00:52→18:01)
[2017-10-05] MEDS: KCL 20 MEQ/100 mL IVPB 20 MEQ/100 ML BAG IV SCH (00:52)
[2017-10-05] MEDS ORDERED: NA CHLORIDE 0.9% 250 ML ONE ×2 (02:08→09:44)
[2017-10-05 05:20] LABS: Absolute Lymphocytes (CBC) 2.3 K/uL (0.7-4.9); Absolute Monocytes 1.2 K/uL (0.1-1.3); Absolute Neutrophil 7.6 K/uL (1.8-8.0); Basophils % 0.7 % (0-1.3); Eosinophils % 2.4 % (0-4.4); Hematocrit 29.3 % (36.0-45.0); Lymphocytes % 20.2 % (15.3-44.8); MCH 28.4 pg (27.0-35.0); MPV 9.1 fL (7.6-11.3); Monocytes % 10.3 % (3.3-12.3); RBC Red Blood Cell Count 3.45 M/uL (3.86-4.86)
[2017-10-05 05:48] LABS: BUN Blood Urea Nitrogen 14 mg/dL (6-20); Bicarbonate 26 mEq/L (21-31); Glomerular Filtration Rate > 90 mL/min (=/>90); Glucose Level 165 mg/dL (65-120); Magnesium 1.8 mg/dL (1.8-2.5); Phosphorus 2.5 mg/dL (2.5-4.3); Potassium 3.7 mEq/L (3.6-5.0); Prealbumin 17.3 mg/dl (18-38); Sodium Level 136 mEq/L (135-145)
[2017-10-05] MEDS ORDERED: KCL 20 MEQ/100 mL IVPB 20 MEQ/100 ML BAG IV SCH (07:00)
[2017-10-05] MEDS ORDERED: MAGNESIUM SULFATE 1 gm IVPB 1 GM/100 ML BAG IV ONE (09:00)
[2017-10-05] MEDS: THIAMINE 200 MG/2 ML INJ IVP SCH (09:26)
[2017-10-05] MEDS: METOPROLOL TAR 25 MG TAB PO SCH ×2 (09:26→22:03)
[2017-10-05] MEDS: PANTOPRAZOLE 40 MG INJ IVP SCH ×2 (09:26→22:03)
[2017-10-05] MEDS: LACTOBACILLUS/ACIDOPHILUS TAB PO SCH ×3 (09:27→22:03)
[2017-10-05] MEDS: ALBUTEROL 2.5 MG/3 ML NEB SOL NEB SCH ×2 (14:35→19:34)
[2017-10-05] MEDS: IPRATROPIUM BROM 0.5MG/2.5ML IH SCH ×2 (14:35→19:34)
--- NOTE | 2017-10-05 17:30 | P.PN ---
Subjective Date of Service: 10/05/17 Chief Complaint: CONFUSED ALL NIGHT, PULLED OUT PICC LINE, NOT EATING Subjective: Improving (BUT SHE IS STILL NOT EATING. SHE IS WEAK , HAS NOT WALKED FOR MONTHS.) Review of Systems 10-point ROS is otherwise unremarkable General: Weakness, Malaise Physical Examination - Vital Signs Temperature: 97.5 F Blood Pressure: 119/64 Pulse: 109 Respirations: 18 Pulse Ox (%): 99 - Physical Exam General: Alert, Mild distress, Confused (MORE AT NIGHT. WAS ABLE TO RECOGNIZE ME AND WAS ORIENTED TO PLACE AND PERSON BUT NOT TIME.) HEENT: Atraumatic, PERRLA, EOMI Neck: Supple, JVD not distended Respiratory: Clear to auscultation bilaterally, Normal air movement Cardiovascular: Regular rate/rhythm, Normal S1 S2 Gastrointestinal: Normal bowel sounds, No tenderness Musculoskeletal: No tenderness Integumentary: No rashes Neurological: Normal speech, Normal tone, Normal affect Lymphatics: No axilla or inguinal lymphadenopathy - Studies Medications List Reviewed: Yes Assessment And Plan - Current Problems (Diagnosis) (1) UTI (urinary tract infection) Onset Date: 10/01/17 Current Visit: Yes Status: Acute Plan: IV CEFTRIAXONE AND LEVAQUIN I WILL DC LEVAQUIN FOR NOW IN THE PAST SHE HAS ENTEROCOCCI BUT WELL TREATED NOW WILL FU MIXED RUTHIE SO FAR IN CULTURE WBC HIGHER CHANGED TO ZOSYN AND VANCOMYCIN IV SONOGRAM NEGATIVE GB I SNORMAL. CT WAS DONE WITHIN A MONTH. WBC IS NORMAL CS PENDING ACIDOSIS HAS CLEARED. E COLI SENSITIVE TO ROCEPHIN STOP VANCOMYCIN AND ZOSYN BC 2 NEG C DIFF NEG. Qualifiers: Urinary tract infection type: acute cystitis Hematuria presence: without hematuria Qualified Code(s): N30.00 - Acute cystitis without hematuria (2) Metabolic acidosis Onset Date: 10/01/17 Current Visit: Yes Status: Acute Plan: WILL WAIT FOR ABG START ON BICARB DRIP IF NEED. PROGNOSIS IS POOR I TOLD THE FAMILY AND THEY ARE WELL AWARE THAT SHE MAY OR MAY NOT DO WELL. THEY WANT TO RESUME DNR STATUS. STOP BICARB DRIP (3) Obtundation Onset Date: 10/01/17 Current Visit: Yes Status: Acute Plan: CHECK B12, ADD THIAMINE RESUME PPN MRI DONE R OCCIPITO PARIETAL STROKE, INFARCT CONSULT PT WHEN MEDICALLY CAN. STABLE FOR NOW GRADUAL IMPROVEMENT. WBC IS HIGHER TODAY CHANGE BACK TO ZOSYN I SEE NO REASON FOR A CHANGE BUT STILL WBC WENT HIGHER AND SHE CLINICALLY GOT WORSE. THIS IS WHY I AM BROADENING SPECTRUM OF ABX. SHE IS CLINICALLY NOT IMPROVING FAMILY IS ASKING FOR KEEPING HER COMFORTABLE AND IF BY FRIDAY SHE DOES NOT IMPROVE , THEY MAY CONSIDER HOSPICE FOR DEBILITY, CVA, INFECTION ETC. DELIRUM WITH THE CURRENT STROKE ARE THE REASON. THERE IS NOT CLINICAL SIGN OF MENINGITIS. (4) Weight loss Onset Date: 10/01/17 Current Visit: Yes Status: Chronic Plan: SINCE ILLNESS WILL DO CT SCAN IF NOT DONE RECENLTY. ALBUMIN IS LOW FROM MALNOURISHMENT TPN ADDED. NOT EATING WELL START REMERON TO IMRPOVE APPETITE. (5) Debility Onset Date: 10/01/17 Current Visit: Yes Status: Acute Plan: IV- PPN PICC LINE. ABOVE. (6) COPD (chronic obstructive pulmonary disease) Onset Date: 10/01/17 Current Visit: Yes Status: Chronic Plan: RESUME NEBS PRN. (7) Anxiety disorder Onset Date: 10/01/17 Current Visit: Yes Status: Acute (8) Leukocytosis Current Visit: Yes Status: Acute Plan: ETIOLOGY IS UNCLEAR UTI IS LIKELY CAUSE NO OTHER SYSTEMS ARE SHOWING SYMPTOMS. BC 2 PENDING . RESUME BROAD SPECTRUM ABX CHECK BED SORE. IMPROVED WITH ZOSYN AND WAS HIGH WHEN I CHANGED TO ROCEPHIN BEFORE FROM ZOSYN. (9) Colitis, ischemic Current Visit: Yes Status: Acute Plan: THIS IS POSSIBLE SHE HAS NEG C DIFF MILD ABDOMEN PAIN H OF HEAVY SMOKING AND MILD LOWER GI BLEED. SHE CAN'T PHYSICALLY AND MEDICALLY GO FOR COLONSCOPY TOO RISKY AT THIS POINT ADVISED CONSERVATIVE CARE. (10) Anemia Current Visit: Yes Status: Acute Plan: MILD LOWER GI BLEED REAL HG IS 7.8 AND NOT 6.7 PICC LINE REMOVAL OF DILUTED BLOOD IS SHOWING 6.7 G A FALSE NUMBER. WILL WATCH DAILY. LAB SHOWS ANEMIA OF CHRONIC DISEASE FERRITIN HIGH FROM ACUTE PHASE REACTION TIBS AND IRON SAT ARE LOW SUGGESIVE OF ANEMIA OF CHR DISEASE B12 NORMAL SPEP PENDING LDH NORMAL - RULES OUT HEMOLYSIS. Qualifiers: Anemia type: other cause (11) Hypokalemia Current Visit: Yes Status: Acute Plan: FROM CORRECTION OF METABOLIC ACIDOSIS K REPLACE CHECK DAILY AND ADJUST TPN IF NEED SHE IS NOT EATING SHE HAS NOT WANTED G TUBE PER DIRECTIVE. (12) Hypocalcemia Current Visit: Yes Status: Acute Plan: THIS IS A FALSE LOW NUMBER. CORRECTED CALCIUM IS MORE THAN 7 WITH HYPOALBUMINEMIA FROM MALNUTRITION. RESUME PPN
[2017-10-05] MEDS: AA 5%/D20W/ELECTROLYTES-TPN 2,000 ML, Lipids 20% 250 ML with MULTIVITAMINS INJ 10 ML IV SCH ×3 (18:01)
[2017-10-05 21:34] LABS: Immunoglobulin A 351 mg/dL (81-463); Tissue Transglutaminase IgA Ab 1 U/mL (<4)
[2017-10-05] MEDS: QUETIAPINE 25 MG TAB PO SCH (22:03)
[2017-10-06] MEDS: PIPER/TAZO/NS 2.25gm 2.25 GM/50 ML BAG IV SCH ×4 (00:10→17:08)
[2017-10-06 05:15] LABS: Absolute Lymphocytes (CBC) 2.2 K/uL (0.7-4.9); Absolute Monocytes 1.1 K/uL (0.1-1.3); Absolute Neutrophil 4.8 K/uL (1.8-8.0); Eosinophils % 3.8 % (0-4.4); Hematocrit 27.5 % (36.0-45.0); Lymphocytes % 25.9 % (15.3-44.8); MCH 29.3 pg (27.0-35.0); MCV 85.2 fL (80-100); Monocytes % 12.7 % (3.3-12.3); RBC Red Blood Cell Count 3.23 M/uL (3.86-4.86)
[2017-10-06 05:27] LABS: BUN Blood Urea Nitrogen 14 mg/dL (6-20); Bicarbonate 26 mEq/L (21-31); Glomerular Filtration Rate > 90 mL/min (=/>90); Glucose Level 141 mg/dL (65-120); Magnesium 1.6 mg/dL (1.8-2.5); Potassium 3.3 mEq/L (3.6-5.0); Sodium Level 136 mEq/L (135-145)
[2017-10-06] MEDS: INSULIN -REGULAR HUMAN 50 UNIT/0.5 ML ML SQ SCH ×3 (06:00→18:00)
[2017-10-06] MEDS: KCL 20 MEQ/100 mL IVPB 20 MEQ/100 ML BAG IV SCH ×2 (07:23→10:01)
[2017-10-06] MEDS: IPRATROPIUM BROM 0.5MG/2.5ML IH SCH ×2 (07:38→20:00)
[2017-10-06] MEDS: ALBUTEROL 2.5 MG/3 ML NEB SOL NEB SCH ×2 (07:39→20:00)
--- NOTE | 2017-10-06 09:03 | P.PN ---
Subjective Date of Service: 10/06/17 Chief Complaint: CONFUSED ALL NIGHT, PULLED OUT PICC LINE, NOT EATING Subjective: Worsening (NOT ABLE TO RECOVER, NOT EATING SINCE MAY PER FAMILY.) Review of Systems General: Weakness, Malaise Neurological: Confusion (ALL NIGHT.) Physical Examination - Vital Signs Temperature: 97.8 F Blood Pressure: 108/64 Pulse: 113 Respirations: 18 Pulse Ox (%): 100 - Physical Exam General: Alert, Cachectic, Mild distress HEENT: Atraumatic, PERRLA, EOMI Neck: Supple, JVD not distended Respiratory: Clear to auscultation bilaterally, Normal air movement Cardiovascular: Regular rate/rhythm, Normal S1 S2 Gastrointestinal: Normal bowel sounds, No tenderness Musculoskeletal: No tenderness Integumentary: No rashes Neurological: Normal speech, Other (DISORIENTED. CONFUSED, CONTRACTURES OF ANKLES.), Abnormal strength (L HEMIPARESIS. CONTRACTURES ANKLES.) Lymphatics: No axilla or inguinal lymphadenopathy - Studies Medications List Reviewed: Yes Assessment And Plan - Current Problems (Diagnosis) (1) UTI (urinary tract infection) Onset Date: 10/01/17 Current Visit: Yes Status: Acute Plan: IV CEFTRIAXONE AND LEVAQUIN I WILL DC LEVAQUIN FOR NOW IN THE PAST SHE HAS ENTEROCOCCI BUT WELL TREATED NOW WILL FU MIXED RUTHIE SO FAR IN CULTURE WBC HIGHER CHANGED TO ZOSYN AND VANCOMYCIN IV SONOGRAM NEGATIVE GB I SNORMAL. CT WAS DONE WITHIN A MONTH. WBC IS NORMAL CS PENDING ACIDOSIS HAS CLEARED. E COLI SENSITIVE TO ROCEPHIN STOP VANCOMYCIN AND ZOSYN BC 2 NEG C DIFF NEG. Qualifiers: Urinary tract infection type: acute cystitis Hematuria presence: without hematuria Qualified Code(s): N30.00 - Acute cystitis without hematuria (2) Metabolic acidosis Onset Date: 10/01/17 Current Visit: Yes Status: Acute Plan: WILL WAIT FOR ABG START ON BICARB DRIP IF NEED. PROGNOSIS IS POOR I TOLD THE FAMILY AND THEY ARE WELL AWARE THAT SHE MAY OR MAY NOT DO WELL. THEY WANT TO RESUME DNR STATUS. STOP BICARB DRIP (3) Obtundation Onset Date: 10/01/17 Current Visit: Yes Status: Acute Plan: CHECK B12, ADD THIAMINE RESUME PPN MRI DONE R OCCIPITO PARIETAL STROKE, INFARCT CONSULT PT WHEN MEDICALLY CAN. STABLE FOR NOW GRADUAL IMPROVEMENT. WBC IS HIGHER TODAY CHANGE BACK TO ZOSYN I SEE NO REASON FOR A CHANGE BUT STILL WBC WENT HIGHER AND SHE CLINICALLY GOT WORSE. THIS IS WHY I AM BROADENING SPECTRUM OF ABX. SHE IS CLINICALLY NOT IMPROVING FAMILY IS ASKING FOR KEEPING HER COMFORTABLE AND IF BY FRIDAY SHE DOES NOT IMPROVE , THEY MAY CONSIDER HOSPICE FOR DEBILITY, CVA, INFECTION ETC. DELIRUM WITH THE CURRENT STROKE ARE THE REASON. THERE IS NOT CLINICAL SIGN OF MENINGITIS. (4) Weight loss Onset Date: 10/01/17 Current Visit: Yes Status: Chronic Plan: SINCE ILLNESS WILL DO CT SCAN IF NOT DONE RECENLTY. ALBUMIN IS LOW FROM MALNOURISHMENT TPN ADDED. NOT EATING WELL START REMERON TO IMRPOVE APPETITE. (5) Debility Onset Date: 10/01/17 Current Visit: Yes Status: Acute Plan: IV- PPN PICC LINE. ABOVE. (6) COPD (chronic obstructive pulmonary disease) Onset Date: 10/01/17 Current Visit: Yes Status: Chronic Plan: RESUME NEBS PRN. (7) Anxiety disorder Onset Date: 10/01/17 Current Visit: Yes Status: Acute (8) Leukocytosis Current Visit: Yes Status: Acute Plan: ETIOLOGY IS UNCLEAR UTI IS LIKELY CAUSE NO OTHER SYSTEMS ARE SHOWING SYMPTOMS. BC 2 PENDING . RESUME BROAD SPECTRUM ABX CHECK BED SORE. IMPROVED WITH ZOSYN AND WAS HIGH WHEN I CHANGED TO ROCEPHIN BEFORE FROM ZOSYN. (9) Colitis, ischemic Current Visit: Yes Status: Acute Plan: THIS IS POSSIBLE SHE HAS NEG C DIFF MILD ABDOMEN PAIN H OF HEAVY SMOKING AND MILD LOWER GI BLEED. SHE CAN'T PHYSICALLY AND MEDICALLY GO FOR COLONSCOPY TOO RISKY AT THIS POINT ADVISED CONSERVATIVE CARE. (10) Anemia Current Visit: Yes Status: Acute Plan: MILD LOWER GI BLEED REAL HG IS 7.8 AND NOT 6.7 PICC LINE REMOVAL OF DILUTED BLOOD IS SHOWING 6.7 G A FALSE NUMBER. WILL WATCH DAILY. LAB SHOWS ANEMIA OF CHRONIC DISEASE FERRITIN HIGH FROM ACUTE PHASE REACTION TIBS AND IRON SAT ARE LOW SUGGESIVE OF ANEMIA OF CHR DISEASE B12 NORMAL SPEP PENDING LDH NORMAL - RULES OUT HEMOLYSIS. Qualifiers: Anemia type: other cause (11) Hypokalemia Current Visit: Yes Status: Acute Plan: FROM CORRECTION OF METABOLIC ACIDOSIS K REPLACE CHECK DAILY AND ADJUST TPN IF NEED SHE IS NOT EATING SHE HAS NOT WANTED G TUBE PER DIRECTIVE. (12) Hypocalcemia Current Visit: Yes Status: Acute Plan: THIS IS A FALSE LOW NUMBER. CORRECTED CALCIUM IS MORE THAN 7 WITH HYPOALBUMINEMIA FROM MALNUTRITION. RESUME PPN (13) Late effect of stroke Current Visit: Yes Status: Acute Plan: NOT ABLE TO RECOVER CONTRACTURES IN ANKLES L SIDE HEMIPARESIS CONFUSED DNR FAMILY WANTS HOSPICE NOW.
[2017-10-06] MEDS: LACTOBACILLUS/ACIDOPHILUS TAB PO SCH ×3 (10:02→21:16)
[2017-10-06] MEDS: PANTOPRAZOLE 40 MG INJ IVP SCH ×2 (10:02→21:18)
[2017-10-06] MEDS: METOPROLOL TAR 25 MG TAB PO SCH ×2 (10:02→21:16)
[2017-10-06] MEDS: THIAMINE 200 MG/2 ML INJ IVP SCH (10:02)
[2017-10-06] MEDS ORDERED: MAGNESIUM SULFATE 1 gm IVPB 1 GM/100 ML BAG IV ONE (10:30)
[2017-10-06] MEDS: AA 5%/D20W/ELECTROLYTES-TPN 2,000 ML, Lipids 20% 250 ML with MULTIVITAMINS INJ 10 ML IV SCH ×3 (17:03)
[2017-10-06] MEDS: QUETIAPINE 25 MG TAB PO SCH (21:16)
[2017-10-07] MEDS: PIPER/TAZO/NS 2.25gm 2.25 GM/50 ML BAG IV SCH ×2 (00:11→05:23)
[2017-10-07 02:13] VITALS: O2SAT 104
[2017-10-07 05:34] LABS: Absolute Lymphocytes (CBC) 2.2 K/uL (0.7-4.9); Absolute Monocytes 1.1 K/uL (0.1-1.3); Absolute Neutrophil 3.4 K/uL (1.8-8.0); Basophils % 1.3 % (0-1.3); Eosinophils % 3.9 % (0-4.4); Hematocrit 27.7 % (36.0-45.0); Lymphocytes % 31.5 % (15.3-44.8); MCH 28.7 pg (27.0-35.0); MCV 87.4 fL (80-100); MPV 9.9 fL (7.6-11.3); Monocytes % 15.3 % (3.3-12.3); RBC Red Blood Cell Count 3.18 M/uL (3.86-4.86)
[2017-10-07 05:40] LABS: BUN Blood Urea Nitrogen 15 mg/dL (6-20); Bicarbonate 25 mEq/L (21-31); Glomerular Filtration Rate > 90 mL/min (=/>90); Glucose Level 114 mg/dL (65-120); Magnesium 1.5 mg/dL (1.8-2.5); Potassium 3.7 mEq/L (3.6-5.0); Sodium Level 138 mEq/L (135-145)
[2017-10-07] MEDS: INSULIN -REGULAR HUMAN 50 UNIT/0.5 ML ML SQ SCH ×3 (06:00→12:00)
[2017-10-07 06:08] LABS: Blood Morphology Comment NOT SEEN (NOT SEEN); Platelet Estimate ADEQ
[2017-10-07] MEDS ORDERED: Magnesium Sulfate 2gm IVPB 2 G/50 ML BAG IV ONE (06:29)
[2017-10-07] MEDS ORDERED: KCL 20 MEQ/100 mL IVPB 20 MEQ/100 ML BAG IV SCH ×2 (07:00→09:00)
[2017-10-07] MEDS: ALBUTEROL 2.5 MG/3 ML NEB SOL NEB SCH (07:22)
[2017-10-07] MEDS: IPRATROPIUM BROM 0.5MG/2.5ML IH SCH (07:22)
[2017-10-07] MEDS: LACTOBACILLUS/ACIDOPHILUS TAB PO SCH (09:00)
[2017-10-07] MEDS: THIAMINE 200 MG/2 ML INJ IVP SCH (09:00)
[2017-10-07] MEDS: PANTOPRAZOLE 40 MG INJ IVP SCH (09:00)
[2017-10-07] MEDS: METOPROLOL TAR 25 MG TAB PO SCH (09:00)
[2017-10-07 12:37] VITALS: BP 105/59; TEMP 97.6
--- NOTE | 2017-10-28 13:05 | P.DS ---
Admission Date: 09/29/17 Discharge Date: 10/28/17 Disposition: HOSPICE-MEDICAL FACILITY Discharge Condition: SERIOUS Reason for Admission: CONFUSED ALL NIGHT, PULLED OUT PICC LINE, NOT EATING - Problems (1) UTI (urinary tract infection) Onset Date: 10/01/17 Status: Acute Qualifiers: Urinary tract infection type: acute cystitis Hematuria presence: without hematuria Qualified Code(s): N30.00 - Acute cystitis without hematuria (2) Metabolic acidosis Onset Date: 10/01/17 Status: Acute (3) Obtundation Onset Date: 10/01/17 Status: Acute (4) Weight loss Onset Date: 10/01/17 Status: Chronic (5) Debility Onset Date: 10/01/17 Status: Acute (6) COPD (chronic obstructive pulmonary disease) Onset Date: 10/01/17 Status: Chronic (7) Anxiety disorder Onset Date: 10/01/17 Status: Acute (8) Leukocytosis Status: Acute (9) Colitis, ischemic Status: Acute (10) Anemia Status: Acute Qualifiers: Anemia type: other cause (11) Hypokalemia Status: Acute (12) Hypocalcemia Status: Acute (13) Late effect of stroke Status: Acute Brief History of Present Illness: MS YARBROUGH HAS SEEN ME IN OFFICE LAST TIME IN MAY. SHE ENDED UP IN [facility] FOR PARTIAL BOWEL OBSTRUCTION, FROM THERE WITH CONSERVATIVE THERAPY SHE IMPROVED [place]ON SAW HER SHE HAD UTI , ANEMIA DOWN TO HG OF 5.6 GM SHE ENDS UP HERE AT THIS HOSPITAL AND TAKEN CARE BY HOSPIALIST DOCTORS PATRICIA HARRIS AND LEORA, AND ID DOCTOR DR. MARKS. LAST TWO ADMISSIONS HERE I WAS NEVER CALLED IN TO TAKE CARE OF HER. I HAD NO IDEA THAT SHE WAS HERE UNTIL SHE CALLED ME FROM [facility] ASKING ME TO TAKE OVER HER MEDIATIONS THE [facility] WAS NOT DOING IT RIGHT. I E MAILED DR WHITTEN AT THAT TIME. THIS TIME I WAS CALLED BY ER DOCTOR WITH OBTUNDATION, HIGH WBC COUNT AND UTI AGAIN. I TALKED TO FAMILY. IS NOT DOING GREAT SINCE BEING SICK IN MAY. SHE IS NOT EATING DESPITE HELP. SHE REFUSES EGD PER HER WILL. I ADVISED FAMILY TO GO FOR HOSPICE WITH HER DEMENTIA FROM SMOKING, STROKE ETC. Vital Signs/Physical Exam: Temp Pulse Resp BP Pulse Ox 97.6 F 116 H 18 105/59 L 99 10/07/17 12:00 10/07/17 12:00 10/07/17 12:00 10/07/17 12:00 10/07/17 12:00 Laboratory Data at Discharge: WBC 7.1 K/uL (4.3-10.9) D 10/07/17 05:20 Hgb 9.1 g/dL (12.0-15.0) L 10/07/17 05:20 Hct 27.7 % (36.0-45.0) L 10/07/17 05:20 Plt Count 143 K/uL (152-406) L 10/07/17 05:20 PT 21.6 SECONDS (9.5-12.5) H 09/29/17 14:16 INR 1.82 09/29/17 14:16 APTT 62.5 SECONDS (24.3-36.9) H 09/29/17 14:16 Sodium 138 mEq/L (135-145) 10/07/17 05:20 Potassium 3.7 mEq/L (3.6-5.0) 10/07/17 05:20 BUN 15 mg/dL (6-20) 10/07/17 05:20 Creatinine 0.47 mg/dL (0.44-1.00) 10/07/17 05:20 Glucose 114 mg/dL (65-120) 10/07/17 05:20 Phosphorus 2.5 mg/dL (2.5-4.3) 10/05/17 05:00 Magnesium 1.5 mg/dL (1.8-2.5) L 10/07/17 05:20 Total Bilirubin 0.9 mg/dL (0.3-1.2) 09/29/17 14:05 AST 22 IU/L (10-42) 09/29/17 14:05 ALT 9 IU/L (10-60) L 09/29/17 14:05 Alkaline Phosphatase 153 IU/L (42-121) H 09/29/17 14:05 Troponin I < 0.03 ng/mL (<0.03) 09/29/17 19:18 B-Natriuretic Peptide 111 pg/ml (<=100) H 09/29/17 14:05 Triglycerides 232 mg/dL (35-160) H 10/05/17 05:00 Home Medications: Alprazolam [Xanax*] 1 mg PO BID PRN 09/29/17 Amlodipine [Norvasc*] 5 mg PO DAILY 09/29/17 Ascorbic Acid [Vitamin C] 500 mg PO DAILY 09/29/17 Aspirin 81 mg PO DAILY 09/29/17 Atorvastatin Calcium 40 mg PO BEDTIME 09/29/17 Clopidogrel Bisulfate [Plavix] 75 mg PO DAILY 09/29/17 Loperamide [Imodium*] 2 mg PO Q6HP PRN 09/29/17 Meclizine HCl 25 mg PO TID 09/29/17 Ondansetron HCl [Zofran] 4 mg PO Q4HP PRN 09/29/17 Potassium Chloride 20 meq PO DAILY 09/29/17 Promethazine HCl 25 mg PO Q8HP PRN 09/29/17 Sucralfate [Carafate] 1 gm PO TID 09/29/17 Venlafaxine HCl 75 mg PO BEDTIME 09/29/17 Zolpidem Tartrate [Zolpidem Tartrate ER] 12.5 mg PO BEDTIME PRN 09/29/17 traMADol HCL [Ultram*] 50 mg PO Q6H PRN 09/29/17 Bisacodyl [Dulcolax*] 10 mg RC ONCE 10/24/17 Metronidazole [Flagyl] 500 mg PO Q8H #42 tablet 10/24/17 Pantoprazole Sodium [Protonix] 40 mg PO BID 10/24/17 Diet: Regular Activity: Fall precautions Followup: Davy Grossman MD [ACTIVE - CAN ADMIT] -
== END 2017-10-07 13:16 | disposition hospice, inpatient (51) | DRG 64 ==
LOC: ER 12:20 → ERHOLD 15:13 → 2ND 18:18
PROVIDERS: ADMIT Internal Medicine; ATTEND Internal Medicine
DX: I63.9 Cerebral infarction, unspecified (principal); K55.039 Acute (reversible) ischemia of large intestine, extent unspecified; N30.00 Acute cystitis without hematuria; E87.2 Acidosis; E46 Unspecified protein-calorie malnutrition; J44.9 Chronic obstructive pulmonary disease, unspecified; E78.00 Pure hypercholesterolemia, unspecified; I10 Essential (primary) hypertension; L89.151 Pressure ulcer of sacral region, stage 1; E83.42 Hypomagnesemia; R53.81 Other malaise; F41.9 Anxiety disorder, unspecified; E83.51 Hypocalcemia; E87.6 Hypokalemia; B96.20 Unspecified Escherichia coli [E. coli] as the cause of diseases classified elsewhere; Z66 Do not resuscitate; Z16.20 Resistance to unspecified antibiotic; Z68.21 Body mass index [BMI] 21.0-21.9, adult
CPT/HCPCS: 36415; 51702; 70450; 70553; 71045; 76700; 80048; 80076; 80202; 81003; 81015; 82274; 82550; 82553; 82607; 82728; 82747; 82784; 82805; 82962; 83516; 83540; 83615; 83735; 83880; 84100; 84132; 84134; 84466; 84478; 84484; 85014; 85018; 85025; 85044; 85610; 85730; 86850; 86900; 86901; 87040; 87045; 87046; 87077; 87086; 87088; 87186; 87493; 93005; 94760; 96361; 96365; 96367; 97163; 99285; A9579; C9113; J0696; J3370; J3411; J3475; J7030; P9016

== ENCOUNTER 2017-10-23 23:16 | Inpatient (IN) | payer OTHER ==
[2017-10-23] MEDS ORDERED: D50W 25 GM/50 ML SYRINGE IV ONE (23:40)
[2017-10-24] MEDS ORDERED: NA CHLORIDE 0.9% 1,000 ML ONE (00:08)
[2017-10-24] MEDS ORDERED: METRONIDAZOLE 500mg IVPB 500 MG/100 ML BAG IV ONE (00:49)
[2017-10-24] MEDS ORDERED: CIPROFLOXACIN 400mg IV 400 MG/200 ML BAG IV ONE (00:49)
[2017-10-24] MEDS ORDERED: ONDANSETRON 4 MG/2 ML VIAL ONE (00:55)
[2017-10-24] MEDS ORDERED: FAMOTIDINE 20 MG/2 ML VIAL IV ONE (00:55)
[2017-10-24 01:11] LABS: Absolute Lymphocytes (CBC) 2.7 K/uL (0.7-4.9); Absolute Monocytes 0.5 K/uL (0.1-1.3); Basophils % 0.6 % (0-1.3); Eosinophils % 0.2 % (0-4.4); Hematocrit 32.5 % (36.0-45.0); Lymphocytes % 23.6 % (15.3-44.8); MCH 28.8 pg (27.0-35.0); MCV 89.2 fL (80-100); Monocytes % 4.2 % (3.3-12.3); RBC Red Blood Cell Count 3.65 M/uL (3.86-4.86)
[2017-10-24 01:14] LABS: Protime INR 1.13
[2017-10-24 01:50] LABS: Bicarbonate 22 mEq/L (21-31); Glucose Level 198 mg/dL (65-120); Potassium 4.6 mEq/L (3.6-5.0); Sodium Level 132 mEq/L (135-145)
[2017-10-24 01:52] LABS: CKMB Creatine Kinase MB 4.6 ng/ml (0.3-4.0)
[2017-10-24 01:53] LABS: Lipase < 10 U/L (22-51)
[2017-10-24 01:56] LABS: ALT/SGPT 9 IU/L (10-60); AST/SGOT 19 IU/L (10-42); Albumin 1.9 g/dL (3.2-5.5); Alkaline Phosphatase 152 IU/L (42-121); BUN Blood Urea Nitrogen 15 mg/dL (6-20); Bilirubin Direct 0.1 mg/dL (0-0.2); Bilirubin Total 0.9 mg/dL (0.3-1.2); Creatine Phosphokinase 9 IU/L (22-269); Magnesium 1.5 mg/dL (1.8-2.5); Protein, Total 5.9 g/dL (6.0-8.3)
[2017-10-24] MEDS ORDERED: MAGNESIUM SULFATE 1 gm IVPB 1 GM/100 ML BAG IV ONE (02:34)
[2017-10-24 03:06] LABS: Urine Blood NEGATIVE (NEG); Urine Glucose NEGATIVE (NEG); Urine Protein TRACE (NEG)
--- NOTE | 2017-10-24 03:41 | EDPHYS ---
Physician Documentation [facility] Name: Celina Granger Age: 71 yrs Sex: Female : 1945 Arrival Date: 10/23/2017 Time: 23:18 Bed 17 Private MD: ED Physician Fidel Bruno HPI: 10/23 23:38 This 71 yrs old Female presents to ER via EMS with complaints of abdominal jaciel pain, vomiting and diarrhea. 23:38 The patient presents with abdominal pain in the upper abdomen, in the lower abdomen. jaciel Onset: The symptoms/episode began/occurred 7 day(s) ago. The patient presents to the emergency department with nausea, vomiting, diarrhea, abdominal pain, of the right upper quadrant, left upper quadrant, right lower quadrant and left lower quadrant. Onset: The symptoms/episode began/occurred 1 week(s) ago. Possible causes: unknown. The symptoms are aggravated by nothing. The symptoms are alleviated by nothing. Associated signs and symptoms: The patient has no apparent associated signs or symptoms. The symptoms are described as constant, crampy, steady. Historical: - Allergies: 23:33 No Known Allergies; kr2 - Home Meds: 23:33 amlodipine 5 mg tab 1 tab once daily [Active]; aspirin 81 mg Oral TbEC 1 tab once daily kr2 [Active]; clopidogrel 75 mg Oral tab 1 tab once daily [Active]; potassium chloride 20 mEq Oral TbER 1 tab once daily [Active]; 10/24 01:28 amlodipine-atorvastatin 10-40 mg oral tab 1 tab once daily for Arteriosclerotic kr2 Vascular Disease [Active]; ascorbic acid (vitamin C) 500 mg tab daily [Active]; zolpidem 12.5 mg Oral TbMP 1 tab once daily [Active]; alprazolam 0.25 mg Oral tab 1 tab twice a day for Anxiety [Active]; Metoprolol Tartrate 12.5 Oral 1 tab 2 times per day [Active]; Protonix 40 mg Oral TbEC 1 tab once daily [Active]; meclizine 25 mg Oral tab 1 tab 3 times per day for Vertigo [Active]; Flagyl 500 mg Oral tab 1 tab every 6 hours [Active]; sucralfate 1 gram oral tab 4 times per day [Active]; Phenergan Oral 25 mg every 8 hours as needed for nausea [Active]; tramadol 50 mg Oral tab 1 tab every 6 hours [Active]; acetaminophen 325 mg Oral tab 2 tabs every 4 hours [Active]; atorvastatin 40 mg Oral tab 1 tab once daily [Active]; Colace 100 mg Oral cap 1 cap once daily [Active]; - PMHx: 01:28 Acute Kidney Failure; Anemia; Anxiety; CAD; COPD; GERD; Hyperlipidemia; Hypertension; kr2 Irritable bowel syndrome; - PSHx: 01:28 Cholecystectomy; kr2 - Immunization history:: Adult Immunizations unknown. - Social history:: Smoking status: Patient/guardian denies using tobacco, but has a distant history of tobacco abuse. - Family history:: not pertinent. ROS: 10/23 23:38 Constitutional: Negative for fever, chills, and weight loss, Eyes: Negative for injury, jaciel pain, redness, and discharge, ENT: Negative for injury, pain, and discharge, Neck: Negative for injury, pain, and swelling, Cardiovascular: Negative for chest pain, palpitations, and edema, Respiratory: Negative for shortness of breath, cough, wheezing, and pleuritic chest pain, Back: Negative for injury and pain, : Negative for injury, bleeding, discharge, and swelling, MS/Extremity: Negative for injury and deformity, Skin: Negative for injury, rash, and discoloration, Neuro: Negative for headache, weakness, numbness, tingling, and seizure, Psych: Negative for depression, anxiety, suicide ideation, homicidal ideation, and hallucinations, Allergy/Immunology: Negative for hives, rash, and allergies, Endocrine: Negative for neck swelling, polydipsia, polyuria, polyphagia, and marked weight changes, Hematologic/Lymphatic: Negative for swollen nodes, abnormal bleeding, and unusual bruising. Abdomen/GI: Positive for abdominal pain, of the right upper quadrant, left upper quadrant, right lower quadrant and left lower quadrant. Exam: 23:38 Constitutional: This is a well developed, well nourished patient who is awake, alert, jaciel and in no acute distress. Head/Face: Normocephalic, atraumatic. Eyes: Pupils equal round and reactive to light, extra-ocular motions intact. Lids and lashes normal. Conjunctiva and sclera are non-icteric and not injected. Cornea within normal limits. Periorbital areas with no swelling, redness, or edema. ENT: Nares patent. No nasal discharge, no septal abnormalities noted. Tympanic membranes are normal and external auditory canals are clear. Oropharynx with no redness, swelling, or masses, exudates, or evidence of obstruction, uvula midline. Mucous membranes moist. Neck: Trachea midline, no thyromegaly or masses palpated, and no cervical lymphadenopathy. Supple, full range of motion without nuchal rigidity, or vertebral point tenderness. No Meningismus. Chest/axilla: Normal chest wall appearance and motion. Nontender with no deformity. No lesions are appreciated. Cardiovascular: Regular rate and rhythm with a normal S1 and S2. No gallops, murmurs, or rubs. Normal PMI, no JVD. No pulse deficits. Respiratory: Lungs have equal breath sounds bilaterally, clear to auscultation and percussion. No rales, rhonchi or wheezes noted. No increased work of breathing, no retractions or nasal flaring. Back: No spinal tenderness. No costovertebral tenderness. Full range of motion. Female : Normal external genitalia. Skin: Warm, dry with normal turgor. Normal color with no rashes, no lesions, and no evidence of cellulitis. MS/ Extremity: Pulses equal, no cyanosis. Neurovascular intact. Full, normal range of motion. Neuro: Awake and alert, GCS 15, oriented to person, place, time, and situation. Cranial nerves II-XII grossly intact. Motor strength 5/5 in all extremities. Sensory grossly intact. Cerebellar exam normal. Normal gait. Psych: Awake, alert, with orientation to person, place and time. Behavior, mood, and affect are within normal limits. 23:38 Abdomen/GI: Inspection: abdomen appears normal, Bowel sounds: normal, Palpation: moderate abdominal tenderness, in the right upper quadrant, left upper quadrant, right lower quadrant and left lower quadrant, Liver: no appreciated palpable abnormalities, Hernia: not appreciated. Vital Signs: 23:33 BP 125 / 77; Pulse 99; Resp 20; Temp 98.5; Pulse Ox 93% on 3 lpm NC; Weight 50.35 kg; kr2 Height 4 ft. 11 in. (149.86 cm); Pain 10; 10/24 01:13 BP 111 / 85; Pulse 96; Resp 15; Pulse Ox 95% on 3 lpm NC; kr2 02:15 BP 118 / 67; Pulse 94; Resp 16; Pulse Ox 97% on 2 lpm NC; lp1 03:00 BP 108 / 69; Pulse 94; Resp 14; Pulse Ox 97% on 2 lpm NC; lp1 04:00 BP 118 / 67; Pulse 94; Resp 16; Pulse Ox 98% on 2 lpm NC; lp1 05:00 BP 141 / 79; Pulse 98; Resp 19; Pulse Ox 97% on 2 lpm NC; lp1 06:09 BP 129 / 69; Pulse 90; Resp 14; Temp 98.4(O); Pulse Ox 96% on 2 lpm NC; lp1 10/23 23:33 Body Mass Index 22.42 (50.35 kg, 149.86 cm) kr2 MDM: 10/23 23:29 Patient medically screened. [facility] 23:41 Data reviewed: vital signs, nurses notes, lab test result(s), EKG, radiologic studies, [facility] CT scan, plain films. 10/23 23:38 Order name: Basic Metabolic Panel [facility] 10/23 23:38 Order name: BNP [facility] 10/23 23:38 Order name: CBC with Diff; Complete Time: 02:09 [facility] 10/23 23:38 Order name: Ckmb; Complete Time: 02:09 [facility] 10/23 23:38 Order name: CPK; Complete Time: 02:09 [facility] 10/23 23:38 Order name: LFT's; Complete Time: 02:09 [facility] 10/23 23:38 Order name: Magnesium; Complete Time: 02:09 [facility] 10/23 23:38 Order name: PT-INR; Complete Time: 02:09 [facility] 10/23 23:38 Order name: Ptt, Activated; Complete Time: 02:09 [facility] 10/23 23:38 Order name: Troponin (emerg Dept Use Only); Complete Time: 02:09 [facility] 10/23 23:38 Order name: Lipase; Complete Time: 02:09 [facility] 10/23 23:38 Order name: Type And Screen [facility] 10/23 23:38 Order name: Urine Culture [facility] 10/23 23:38 Order name: Basic Metabolic Panel; Complete Time: 02:09 [facility] 10/23 23:38 Order name: XRAY Chest (1 view) [facility] 10/23 23:38 Order name: BNP B-Type Natriuretic Peptide; Complete Time: 02:09 [facility] 10/24 01:46 Order name: CT Abd/Pelvis - W/Contrast [facility] 10/24 01:53 Order name: Urine Dipstick--Ancillary (enter results) em1 10/24 03:39 Order name: Fecal Leukocyte Stain [facility] 10/24 03:39 Order name: Occult Blood [facility] 10/24 03:39 Order name: Stool Culture [facility] 10/24 03:39 Order name: CDIFF [facility] 10/23 23:38 Order name: EKG; Complete Time: 23:38 [facility] 10/23 23:38 Order name: Cardiac monitoring; Complete Time: 00:32 [facility] 10/23 23:38 Order name: EKG - Nurse/Tech; Complete Time: 00:32 [facility] 10/23 23:38 Order name: IV Saline Lock; Complete Time: 00:32 [facility] 10/23 23:38 Order name: Labs collected and sent; Complete Time: 00:32 [facility] 10/23 23:38 Order name: O2 Per Protocol; Complete Time: 00:36 [facility] 10/23 23:38 Order name: O2 Sat Monitoring; Complete Time: 00:36 [facility] 10/23 23:38 Order name: Urine Dipstick-Ancillary (obtain specimen); Complete Time: 01:46 [facility] 10/24 03:45 Order name: CONS Physician Consult EDMS Administered Medications: 10/24 00:00 Drug: D50W 50 ml Route: IVP; Site: right wrist; kr2 01:46 Follow up: Response: Blood sugar is elevated lp1 00:31 Drug: NS 0.9% 500 ml {Note: given in midline to left upper arm.} Route: IV; Rate: kr2 bolus; Site: Other; 01:00 Follow up: Response: No adverse reaction; IV Status: Completed infusion kr2 01:00 Drug: Zofran 4 mg {Note: left upper arm midline.} Route: IVP; Site: Other; kr2 01:43 Follow up: Response: No adverse reaction; Nausea is decreased kr2 01:01 Drug: Pepcid 20 mg {Note: left upper arm midline.} Route: IVP; Site: Other; kr2 01:42 Follow up: Response: No adverse reaction kr2 01:01 Drug: Flagyl 500 mg {Note: left upper arm midline.} Volume: 100 ml; Route: IVPB; Rate: kr2 200 ml/hr; Infused Over: 30 mins; Site: Other; 01:15 Follow up: Response: No adverse reaction; IV Status: Completed infusion kr2 01:15 Drug: Cipro 400 mg {Note: left upper arm midline.} Volume: 200 ml; Route: IVPB; Infused kr2 Over: 60 mins; Site: Other; 02:30 Follow up: IV Status: Completed infusion lp1 01:15 Drug: NS 0.9% 1000 ml {Note: left upper arm midline.} Route: IV; Rate: 125 ml/hr; Site: kr2 Other; 05:06 Follow up: IV Status: Infusion continued upon admission lp1 03:07 Drug: Magnesium Sulfate 1 grams Route: IVPB; Infused Over: 1 hrs; Site: left upper arm; lp1 04:12 Follow up: IV Status: Completed infusion lp1 05:06 Not Given (No complaint of pain): fentaNYL (PF) 25 mcg IVP once lp1 05:06 Not Given (no pain): fentaNYL (PF) 25 mcg IVP once lp1 05:48 Drug: D50W 50 ml Route: IVP; Site: left upper arm; lp1 06:10 Follow up: Response: Blood sugar is elevated lp1 Point of Care Testing: Blood Glucose: 10/23 23:36 Blood Glucose: 44 mg/dL; cb2 10/24 01:02 Blood Glucose: 112 mg/dL; kr2 05:47 Blood Glucose: 45 mg/dL; lp1 06:09 Blood Glucose: 154 mg/dL; lp1 Ranges: Critical Glucose Levels:Adult <50 mg/dl or >400 mg/dl <40 mg/dl or >180 mg/dl Disposition: 10/24/17 03:40 Hospitalization ordered by Sonia Nielson for Inpatient Admission. Preliminary diagnosis are Left sided colitis, Abdominal tenderness, Anemia, unspecified, Hypomagnesemia, Hypoglycemia, unspecified. - Bed requested for Telemetry/MedSurg (Inpatient). - Status is Inpatient Admission. lp1 - Condition is Fair. - Problem is new. - Symptoms have improved. UTI on Admission? No Signatures: Dispatcher [employer] EDFidel Buckner MD MD cha Pena, Laura, RN RN lp1 Taylor Tristan RN RN cg Reaves, Karey, RN RN kr2
--- NOTE | 2017-10-24 03:41 | ER ---
Nurse's Notes [facility] Name: Celina Granger Age: 71 yrs Sex: Female : 1945 Arrival Date: 10/23/2017 Time: 23:18 Bed 17 Private MD: Diagnosis: Left sided colitis;Abdominal tenderness;Anemia, unspecified;Hypomagnesemia;Hypoglycemia, unspecified Presentation: 10/23 23:27 Presenting complaint: EMS states: patient complains of nausea and vomiting x 2 days and kr2 states she vomited 4 times today. Oxygen saturation was 93% on 3 LPM via NC. Transition of care: patient was received from another setting of care ([facility]. Onset of symptoms was October 21, 2017. Initial Sepsis Screen: Does the patient meet any 2 criteria? No. Patient's initial sepsis screen is negative. Does the patient have a suspected source of infection? No. Patient's initial sepsis screen is negative. Care prior to arrival: None. 23:27 Method Of Arrival: EMS: [facility] kr2 23:27 Acuity: JESSE 3 kr2 Triage Assessment: 23:30 General: Appears in no apparent distress. uncomfortable, well groomed, well developed, kr2 well nourished, Behavior is calm, cooperative. Pain: Complains of pain in right upper quadrant and left upper quadrant Pain does not radiate. Pain currently is 10 out of 10 on a pain scale. Quality of pain is described as aching, crampy, Pain began suddenly, Is continuous, Alleviated by nothing. Aggravated by eating. EENT: Nares are clear Oral mucosa is moist. Neuro: Level of Consciousness is awake, alert, obeys commands, Oriented to person, place, situation, Manager Of Community Relations are equal bilaterally Moves all extremities. Speech is normal, Facial symmetry appears normal, Pupils are PERRLA, Intact. Cardiovascular: Capillary refill < 3 seconds in bilateral fingers Patient's skin is warm and dry. Respiratory: Airway is patent Respiratory effort is even, unlabored, Respiratory pattern is regular, symmetrical, Breath sounds are clear bilaterally. GI: Reports diarrhea, nausea, vomiting. GI: Abdomen is flat, non-distended, Bowel sounds present X 4 quads. Abd is soft and non tender X 4 quads. : No signs and/or symptoms were reported regarding the genitourinary system. Denies burning with urination. Derm: Skin is intact, is healthy with good turgor, Skin is pink, warm \T\ dry. Musculoskeletal: Circulation, motion, and sensation intact. Historical: - Allergies: 23:33 No Known Allergies; kr2 - Home Meds: :33 amlodipine 5 mg tab 1 tab once daily [Active]; aspirin 81 mg Oral TbEC 1 tab once daily kr2 [Active]; clopidogrel 75 mg Oral tab 1 tab once daily [Active]; potassium chloride 20 mEq Oral TbER 1 tab once daily [Active]; 10/24 01:28 amlodipine-atorvastatin 10-40 mg oral tab 1 tab once daily for Arteriosclerotic kr2 Vascular Disease [Active]; ascorbic acid (vitamin C) 500 mg tab daily [Active]; zolpidem 12.5 mg Oral TbMP 1 tab once daily [Active]; alprazolam 0.25 mg Oral tab 1 tab twice a day for Anxiety [Active]; Metoprolol Tartrate 12.5 Oral 1 tab 2 times per day [Active]; Protonix 40 mg Oral TbEC 1 tab once daily [Active]; meclizine 25 mg Oral tab 1 tab 3 times per day for Vertigo [Active]; Flagyl 500 mg Oral tab 1 tab every 6 hours [Active]; sucralfate 1 gram oral tab 4 times per day [Active]; Phenergan Oral 25 mg every 8 hours as needed for nausea [Active]; tramadol 50 mg Oral tab 1 tab every 6 hours [Active]; acetaminophen 325 mg Oral tab 2 tabs every 4 hours [Active]; atorvastatin 40 mg Oral tab 1 tab once daily [Active]; Colace 100 mg Oral cap 1 cap once daily [Active]; - PMHx: 01:28 Acute Kidney Failure; Anemia; Anxiety; CAD; COPD; GERD; Hyperlipidemia; Hypertension; kr2 Irritable bowel syndrome; - PSHx: 01:28 Cholecystectomy; kr2 - Immunization history:: Adult Immunizations unknown. - Social history:: Smoking status: Patient/guardian denies using tobacco, but has a distant history of tobacco abuse. - Family history:: not pertinent. Screenin:36 Abuse screen: Denies threats or abuse. Denies injuries from another. Nutritional kr2 screening: No deficits noted. Tuberculosis screening: No symptoms or risk factors identified. Fall Risk None identified. Assessment: 10/23 23:35 Reassessment: See triage assessment. kr2 10/24 01:06 Reassessment: Patient appears in no apparent distress at this time. Patient and/or kr2 family updated on plan of care and expected duration. Pain level reassessed. Patient confused at times. Able to give her name, date of and the situation. Rambles about things that do not make sense. Repeating things over and over again, anxious. 02:00 Reassessment: Patient appears in no apparent distress at this time. No changes from lp1 previously documented assessment. Patient and/or family updated on plan of care and expected duration. Pain level reassessed. 02:00 General: Behavior is restless. Neuro: Level of Consciousness is awake, confused, lp1 Oriented to person. 03:00 Reassessment: Patient continues to be restless, moving in bed. lp1 04:00 Reassessment: Patient appears in no apparent distress at this time. Patient and/or lp1 family updated on plan of care and expected duration. Pain level reassessed. Patient fidgeting with blanket. Neuro: Level of Consciousness is awake, confused, Oriented to person. 04:00 Respiratory: Respiratory effort is even, unlabored. Derm: Skin is fragile, is thin, lp1 Skin is dry, Skin is pale. 05:47 Reassessment: Dr. Bruno notified of BGL of 45, Verbal order given for 1 amp of D50. lp1 06:05 Reassessment: Patient's brief changed at this time. lp1 Vital Signs: 10/23 23:33 BP 125 / 77; Pulse 99; Resp 20; Temp 98.5; Pulse Ox 93% on 3 lpm NC; Weight 50.35 kg; kr2 Height 4 ft. 11 in. (149.86 cm); Pain 10/10; 10/24 01:13 BP 111 / 85; Pulse 96; Resp 15; Pulse Ox 95% on 3 lpm NC; kr2 02:15 BP 118 / 67; Pulse 94; Resp 16; Pulse Ox 97% on 2 lpm NC; lp1 03:00 BP 108 / 69; Pulse 94; Resp 14; Pulse Ox 97% on 2 lpm NC; lp1 04:00 BP 118 / 67; Pulse 94; Resp 16; Pulse Ox 98% on 2 lpm NC; lp1 05:00 BP 141 / 79; Pulse 98; Resp 19; Pulse Ox 97% on 2 lpm NC; lp1 06:09 BP 129 / 69; Pulse 90; Resp 14; Temp 98.4(O); Pulse Ox 96% on 2 lpm NC; lp1 10/23 23:33 Body Mass Index 22.42 (50.35 kg, 149.86 cm) kr2 ED Course: 10/23 23:18 Patient arrived in ED. em1 23:27 Selene Velásquez, LETI is Primary Nurse. kr2 23:29 Fidel Bruno MD is Attending Physician. jaciel 23:30 Triage completed. kr2 23:30 Arm band placed on. Patient has correct armband on for positive identification. Bed in kr2 low position. Call light in reach. Side rails up X2. hospital monitor on. Pulse ox on. NIBP on. Door closed. Warm blanket given. Head of bed elevated. 23:45 Missed attempt(s): 22 gauge in left antecubital area. Bleeding controlled, band aid kr2 applied, catheter tip intact. 23:50 Missed attempt(s): 24 gauge in right antecubital area. Bleeding controlled, band aid kr2 applied, catheter tip intact. 10/24 00:00 Inserted saline lock: 24 gauge in right wrist, using aseptic technique. kr2 00:05 Radiology exam delayed due to IV insertion attempt and/or patient not having kw appropriate IV at this time. 00:26 Inserted 18 gauge 8 cm midline to left upper arm basilic vein on first attempt. Line fc with good blood return and flushes well. Blood collected and sent to lab. 00:53 X-ray completed. Portable x-ray completed in exam room. Patient tolerated procedure kw well. 00:53 XRAY Chest (1 view) In Process Unspecified. EDMS 01:30 Straight cath inserted, using sterile technique, 16 Fr. Specimen obtained. lp1 03:28 CT Abd/Pelvis - W/Contrast In Process Unspecified. EDMS 03:40 Sonia Nielson MD is Hospitalizing Provider. jaciel 04:13 No provider procedures requiring assistance completed. Patient admitted, IV remains in lp1 place. 05:09 Davy Grossman MD is Hospitalizing Provider. jaciel 05:55 Sonia Nielson MD is Hospitalizing Provider. jaciel Administered Medications: 00:00 Drug: D50W 50 ml Route: IVP; Site: right wrist; kr2 01:46 Follow up: Response: Blood sugar is elevated lp1 00:31 Drug: NS 0.9% 500 ml {Note: given in midline to left upper arm.} Route: IV; Rate: kr2 bolus; Site: Other; 01:00 Follow up: Response: No adverse reaction; IV Status: Completed infusion kr2 01:00 Drug: Zofran 4 mg {Note: left upper arm midline.} Route: IVP; Site: Other; kr2 01:43 Follow up: Response: No adverse reaction; Nausea is decreased kr2 01:01 Drug: Pepcid 20 mg {Note: left upper arm midline.} Route: IVP; Site: Other; kr2 01:42 Follow up: Response: No adverse reaction kr2 01:01 Drug: Flagyl 500 mg {Note: left upper arm midline.} Volume: 100 ml; Route: IVPB; Rate: kr2 200 ml/hr; Infused Over: 30 mins; Site: Other; 01:15 Follow up: Response: No adverse reaction; IV Status: Completed infusion kr2 01:15 Drug: Cipro 400 mg {Note: left upper arm midline.} Volume: 200 ml; Route: IVPB; Infused kr2 Over: 60 mins; Site: Other; 02:30 Follow up: IV Status: Completed infusion lp1 01:15 Drug: NS 0.9% 1000 ml {Note: left upper arm midline.} Route: IV; Rate: 125 ml/hr; Site: [facility] Other; 05:06 Follow up: IV Status: Infusion continued upon admission lp1 03:07 Drug: Magnesium Sulfate 1 grams Route: IVPB; Infused Over: 1 hrs; Site: left upper arm; lp1 04:12 Follow up: IV Status: Completed infusion lp1 05:06 Not Given (No complaint of pain): fentaNYL (PF) 25 mcg IVP once lp1 05:06 Not Given (no pain): fentaNYL (PF) 25 mcg IVP once lp1 05:48 Drug: D50W 50 ml Route: IVP; Site: left upper arm; lp1 06:10 Follow up: Response: Blood sugar is elevated lp1 Point of Care Testing: Blood Glucose: 10/23 23:36 Blood Glucose: 44 mg/dL; cb2 10/24 01:02 Blood Glucose: 112 mg/dL; kr2 05:47 Blood Glucose: 45 mg/dL; lp1 06:09 Blood Glucose: 154 mg/dL; lp1 Ranges: Outcome: 03:40 Decision to Hospitalize by Provider. jaciel 04:13 Condition: stable lp1 04:13 Instructed on the need for admit. 05:36 Admitted to Med/surg accompanied by nurse, via stretcher, room 201, with oxygen, with lp1 chart, Report called to Kirstie Tristan RN 06:11 Patient left the ED. lp1 Signatures: Dispatcher [employer] EDMS Fidel Bruno MD MD cha Chretien, Felicia, RN RN Perfecto Hatfield emEmilie Hughes Laura, RN RN [email or web address] Pepe Deutsch Karey, RN RN kr2 Corrections: (The following items were deleted from the chart) 00:37 10/23 23:45 Arm band placed on kr2 kr2 10/24 00:41 10/23 23:15 Arm band placed on kr2 kr2 10/24 00:41 10/23 23:15 Patient has correct armband on for positive identification. Bed in low kr2 position. Call light in reach. Side rails up X2. kr2 10/24 00:41 10/23 23:15 hospital monitor on. Pulse ox on. NIBP on. kr2 kr2 10/24 00:41 10/23 23:15 Door closed. Warm blanket given. Head of bed elevated. kr2 kr2 10/24 00:43 10/23 23:35 General: Appears in no apparent distress. uncomfortable, well groomed, well kr2 developed, well nourished, Behavior is calm, cooperative, kr2 10/24 00:43 00:37 Pain: Complains of pain in right upper quadrant and left upper quadrant Pain does kr2 not radiate. Pain currently is 10 out of 10 on a pain scale. Quality of pain is described as aching, crampy, Pain began suddenly, Is continuous, Alleviated by nothing. Aggravated by eating, kr2 00:43 00:37 EENT: Nares are clear Oral mucosa is moist. kr2 kr2 00:43 00:37 Neuro: Level of Consciousness is awake, alert, obeys commands, Oriented to kr2 person, place, situation, Manager Of Community Relations are equal bilaterally Moves all extremities. Speech is normal, Facial symmetry appears normal, Pupils are PERRLA, Intact kr2 : 00:37 Cardiovascular: Capillary refill < 3 seconds in bilateral fingers Patient's skin kr2 is warm and dry. kr2 : 00:37 Respiratory: Airway is patent Respiratory effort is even, unlabored, Respiratory kr2 pattern is regular, symmetrical, Breath sounds are clear bilaterally. kr2 : 00:37 GI: Abdomen is flat, non-distended, Bowel sounds present X 4 quads. Abd is soft kr2 and non tender X 4 quads. kr2 : 00:37 : No signs and/or symptoms were reported regarding the genitourinary system. kr2 Denies burning with urination, kr2 : 00:37 GI: Reports diarrhea, nausea, vomiting, kr2 kr2 : 00:37 Derm: Skin is intact, is healthy with good turgor, Skin is pink, warm \T\ dry. kr2 kr2 : 00:37 Musculoskeletal: Circulation, motion, and sensation intact. kr2 kr2 01:03 10/23 23:30 Neuro: Level of Consciousness is awake, alert, obeys commands, Oriented to kr2 person, place, situation, Manager Of Community Relations are equal bilaterally Moves all extremities. Speech is normal, Facial symmetry appears normal, Pupils are PERRLA, Intact kr2
[2017-10-24] MEDS ORDERED: ONDANSETRON 4 MG/2 ML VIAL IV PRN (05:12)
[2017-10-24] MEDS ORDERED: ACETAMINOPHEN 500 MG TAB PO PRN (05:12)
[2017-10-24] MEDS ORDERED: MORPHINE 4 MG/ML SYR IV PRN (05:12)
[2017-10-24] MEDS ORDERED: D50W 25 GM/50 ML SYRINGE IV ONE (05:45)
[2017-10-24] MEDS ORDERED: D5 0.45 NS 1,000 ML IV ONE (05:46)
[2017-10-24] MEDS ORDERED: D5 0.45 NS 1,000 ML IV SCH (06:00)
--- NOTE | 2017-10-24 06:06 | P.HP ---
Certification for Inpatient Patient admitted to: Inpatient With expected LOS: >2 Midnights Patient will require the following post-hospital care: None Practitioner: I am a practitioner with admitting privileges, knowledge of patient current condition, hospital course, and medical plan of care. Services: Services provided to patient in accordance with Admission requirements found in Title 42 Section 412.3 of the Code of Federal Regulations Patient History Date of Service: 10/24/17 Reason for admission: Colitis History of Present Illness: Patient is a 71-year-old female who presents to the hospital with abdominal pain. Patient also been having intractable nausea and vomiting along with diarrhea. Patient has been at [facility] for senior living placement. Apparently she was discharged from the hospital earlier this month. She was a patient of Dr. Romero, and Dr. Grossman had placed him on hospice services. However, when patient arrived at [facility] she decided that she did not want to be on hospice. She was placed in senior living facility or she has been getting physical therapy and nursing care. Patient was diagnose with ischemic colitis last month. However, on the current CT scan there is no mention of ischemia. Patient does not have a metabolic acidosis. Will check a lactic acid level. At this time patient will be given IV antibiotics along with anti emetics and will do stool studies as well. Patient will be admitted to the hospital for further evaluation. Patient's primary care provider is out of town and we were going to admit the patient for him. She still is a patient of Dr. Grossman, and she will go to his service once he is back in town. Allergies No Known Allergies Allergy (Verified 09/30/17 00:18) Home Medications: Acetaminophen [Tylenol] 325 mg PO Q6HP PRN 09/29/17 Alprazolam [Xanax] 1 mg PO BID PRN 09/29/17 Amlodipine [Norvasc] 5 mg PO DAILY 09/29/17 Ascorbic Acid [Vitamin C] 500 mg PO DAILY 09/29/17 Aspirin 81 mg PO DAILY 09/29/17 Atorvastatin Calcium 40 mg PO BEDTIME 09/29/17 Clopidogrel Bisulfate [Plavix] 75 mg PO DAILY 09/29/17 Cod Liver/Zinc Oint [Desitin Ointment] 30 lashonda TOP Q8H 09/29/17 Ipratropium/Albuterol Sulfate [Iprat-Albut 0.5-3(2.5) mg/3 ml] 3 ml IH BID 09/29 Loperamide [Imodium] 2 mg PO Q6HP PRN 09/29/17 Meclizine HCl 25 mg PO TID 09/29/17 Metoprolol Tartrate [Lopressor] 12.5 mg PO BID 09/29/17 Ondansetron HCl [Zofran] 4 mg PO Q4HP PRN 09/29/17 Pantoprazole Granules [Protonix Granules*] 1 packet PO BID 09/29/17 Potassium Chloride 20 meq PO DAILY 09/29/17 Promethazine HCl 25 mg PO Q8HP PRN 09/29/17 Promethazine Inj [Phenergan -Inj*] 25 mg IM Q8HP PRN 09/29/17 Sucralfate [Carafate] 1 gm PO TID 09/29/17 Venlafaxine HCl 75 mg PO BEDTIME 09/29/17 Zolpidem Tartrate [Zolpidem Tartrate ER] 12.5 mg PO BEDTIME PRN 09/29/17 traMADol HCL [Ultram] 50 mg PO Q6H PRN 09/29/17 Amox/Clavulanate [Augmentin 875-125 Tab] 1 each PO BID #10 tab 10/07/17 - Past Medical/Surgical History Diabetic: No -: COPD -: High Cholesterol -: HTN -: anxiety -: depression -: Anxiety -: Depression -: Bilateral tubal ligation -: Appendectomy -: aortic bypass - Family History Father Medical History: Heart disease, Hypertension - Social History Alcohol use: No CD- Drugs: No Caffeine use: Yes Review of Systems is unable to be obtained Physical Examination - Vital Signs Temperature: 99.9 F Blood Pressure: 130/80 Pulse: 88 Respirations: 18 Pulse Ox (%): 96 - Physical Exam General: Alert, In no apparent distress, Oriented x3 HEENT: Atraumatic, Normocephalic, PERRLA Neck: Supple, 2+ carotid pulse no bruit, JVD not distended Respiratory: Clear to auscultation bilaterally, Diminished Cardiovascular: Regular rate/rhythm, Normal S1 S2, Systolic murmur Capillary refill: <2 Seconds Gastrointestinal: Normal bowel sounds, Hypoactive, Non-distended, No rebound, No guarding, Tenderness Musculoskeletal: No clubbing, No swelling Integumentary: No rashes Neurological: Normal gait, Normal speech, Normal strength at 5/5 x4 extr, Normal tone, Sensation intact, Cranial nerves 3-12 intact Lymphatics: No axilla or inguinal lymphadenopathy - Studies Laboratory Data (last 24 hrs) 10/24/17 00:23: PT 13.4 H, INR 1.13, APTT 27.7 10/24/17 00:23: WBC 11.2 H, Hgb 10.5 L, Hct 32.5 L, Plt Count 589 H 10/24/17 00:23: B-Natriuretic Peptide 98 10/24/17 00:23: Sodium 132 L, Potassium 4.6, BUN 15, Creatinine 0.67, Glucose 198 H, Magnesium 1.5 L, Total Bilirubin 0.9, AST 19, ALT 9 L, Alkaline Phosphatase 152 H, Lipase < 10 L Assessment & Plan - Problems (Diagnosis) (1) Colitis Current Visit: Yes Status: Acute (2) Altered awareness, transient Current Visit: Yes Status: Acute (3) Anxiety disorder Onset Date: 10/01/17 Current Visit: No Status: Acute (4) Hypomagnesemia Onset Date: 08/18/17 Current Visit: No Status: Acute (5) Late effect of stroke Current Visit: No Status: Acute (6) COPD (chronic obstructive pulmonary disease) Onset Date: 10/01/17 Current Visit: No Status: Chronic (7) Hypertension Onset Date: 08/18/17 Current Visit: No Status: Chronic Qualifiers: Hypertension type: essential hypertension Qualified Code(s): I10 - Essential (primary) hypertension (8) Hypoalbuminemia due to protein-calorie malnutrition Onset Date: 08/18/17 Current Visit: No Status: Acute - Plan 1. Continue with IV hydration 2. Continue with IV antibiotics 3. Continue with pain control 4. NPO; patient will need protein supplementation when she starts eating 5. GI consultation; patient probably is not a candidate for a colonoscopy with her multiple medical issues. Generally do it if benefits outweigh the risks. 6. Serial H&H, and we will monitor CBC, BMP, LFTs and lipase along with electrolytes. 7. GI and DVT prophylaxis Discharge Plan: Home Plan to discharge in: 24 Hours - Advance Directives Does patient have a Living Will: No Does patient have a Durable POA for Healthcare: Yes - Code Status/Comfort Care Code Status Assessed: Yes Code Status: Full Code Critical Care: No
[2017-10-24] MEDS ORDERED: Morphine 2 MG/2 ML SYR IV PRN (07:24)
[2017-10-24 07:34] VITALS: BMI 21.8
--- NOTE | 2017-10-24 08:23 | RAD REPORT ---
EXAM DESCRIPTION: CT - Abdomen Pelvis W Contrast - 10/24/2017 6:43 am CLINICAL HISTORY: Abdominal pain. Nausea and vomiting for 2 days COMPARISON: August 2017 TECHNIQUE: Computed axial tomography of the abdomen and pelvis was obtained. 100 cc Isovue-300 is ad ministered intravenously. Oral contrast was given.A preliminary report was generated by [employer] and review prior to this dictation All CT scans are performed using dose optimization technique as appropriate and may include automated exposure control or mA/KV adjustment according to patient size. FINDINGS: The liver, spleen, pancreas, adrenals and right kidney appear unremarkable. Tiny nonobstructing left renal calculus is present. Small ventral hernias containing nondilated small bowel are present. The wall of the descending and sigmoid colon is mildly to moderately thickened with stranding within the adjacent fat. Pneumatosis intestinalis is not seen. Pneumoperitoneum is not present. An aorto femoral graft is in place IMPRESSION: Mild to moderate left colitis
--- NOTE | 2017-10-24 08:24 | RAD REPORT ---
EXAM DESCRIPTION: John Single View10/24/2017 12:55 am CLINICAL HISTORY: Abdominal pain COMPARISON: October 04, 2017 FINDINGS: The lungs appear clear of acute infiltrate. The heart is normal size IMPRESSION: No acute abnormalities displayed
[2017-10-24 08:30] VITALS: TEMP 97.6
[2017-10-24] MEDS ORDERED: METRONIDAZOLE 500mg IVPB 500 MG/100 ML BAG IV SCH (09:00)
[2017-10-24] MEDS ORDERED: CIPROFLOXACIN 400mg IV 400 MG/200 ML BAG IV SCH (09:00)
[2017-10-24] MEDS ORDERED: FAMOTIDINE 20 MG/2 ML VIAL IV SCH ×2 (09:00)
[2017-10-24 12:22] VITALS: BP 110/60
--- NOTE | 2017-10-24 16:27 | EKG ---
Test Date: 2017-10-24 Test Time: 00:28:29 Patient Portal Representative: SHIRA MEASUREMENT RESULTS: Intervals: Rate: 95 [place]: 108 QRSD: 64 QT: 388 QTc: 487 [place]: P: 9 [place]: 108 QRS: 55 T: 75 INTERPRETIVE STATEMENTS: Sinus rhythm with short [place] Otherwise normal ECG Compared to ECG 10/02/2017 00:27:36 Short [place] interval now present Sinus tachycardia no longer present ST (T wave) deviation no longer present Possible ischemia no longer present Electronically Signed On 10-24-17 16:23:49 CDT by Tyrell Jean-Baptiste
--- NOTE | 2017-10-24 19:13 | CON ---
Date of Consultation: 10/24/2017 A 71-year-old female. Dr. Harper. Reason For Consultation: Diarrhea, abnormal CT scan. History Of Present Illness: Ms. Granger is a 71-year-old female, who apparently gives some good histo ry however in the middle she appears to be confused in the middle of her talking. She apparently had a long complicated history. There was at one point her primary care doctor even consider her to be in the hospice care. The patient's current problem came with anemia. She was hypomagnesemic she has questionable history of diarrhea also. CT scan shows left-sided colitis. As a result, I have been consulted. At this time, the patient states that she has back pain; however, she denies any abdominal pain whats oever. She even denies any diarrhea at this time. I am not sure how reliable her history is. Denie s any hematemesis, melena, or hematochezia. Past Medical History: Other than above, confusion, hypertension, and spinal injury. Past Surgical History: Not related to above. Family History: Denies any gastrointestinal malignancy in the family. Social History: Positive smoking. I am not sure about alcohol. Allergies: REVIEWED IN THE CHART. Medications: Reviewed in the chart. Review of Systems: She has conflicting answer about review of system. I am not sure how much is reliable; however, at t his time, she has no apparent shortness of breath, cough, or expectoration. No orthopnea or dyspnea. Rest are unreliable. Physical Examination: General: Elderly female, at this time, very talkative no other acute distress noted. Vital Signs: Hemodynamic and respiratory profile within normal range. HEENT: Atraumatic, normocephalic. Anicteric. Slight pallor. Some temporal wasting. Neck: Supple. No lymphadenopathy. Trachea central in position. Chest: Clear to auscultation percussion with bilateral crackles. Cardiac: normal S1, S2. No S3, no S4. Abdomen: Soft, nontender, nondistended. Excellent bowel sounds. No ascites. No succussion splash. No hepatomegaly. No splenomegaly. Dermatologic: Generally unremarkable. Neurologic: She is alert and oriented x2. I am not sure about memory, mentation; however, she is mo ving all parts of her extremities without any other problem. Diagnostic data, radiologic data reviewed, analyzed. Impression, Plan, And Recommendation: Ms. Granger is a 71-year-old female with alleged diarrhea that she denies and colitis up on CT scan. Her history is quite unreliable and given the fact that she miller s been in an assisted home or half-way, Clostridium difficile colitis is a prime suspect. Put he r on metronidazole. Rest of the general management. I have discussed with her regarding possible colonoscopy and direct visualization; however, I am not sure whether she has the insight to it or not at this time. Also stool studies will be important, ho wever, due to antibiotic use, I am not sure how reliable it would be at this time. Given her multipl e medical treatment, conservative treatment will be the treatment of choice; however, if needed and i f she has intractable symptoms, colonoscopy might be necessary. I have tried to explain to her as much as possible. I am not sure how much insight she has at this t aicha. LYLE/CALLIE Voice ID: [id number] Report ID: [id number]
[2017-10-24 20:38] VITALS: O2SAT 95
== END 2017-10-24 17:51 | DRG 386 ==
LOC: ER 23:16 → ERHOLD 10-24 03:43 → 2ND 10-24 05:34
PROVIDERS: ADMIT Family Medicine; ATTEND Family Medicine
DX: K51.50 Left sided colitis without complications (principal); E46 Unspecified protein-calorie malnutrition; E78.00 Pure hypercholesterolemia, unspecified; F41.8 Other specified anxiety disorders; E83.42 Hypomagnesemia; D64.9 Anemia, unspecified; Z68.21 Body mass index [BMI] 21.0-21.9, adult; I69.30 Unspecified sequelae of cerebral infarction
CPT/HCPCS: 36415; 51702; 71045; 74177; 80048; 80076; 81003; 82550; 82553; 82962; 83690; 83735; 83880; 84484; 85025; 85610; 85730; 86850; 86900; 86901; 87045; 87046; 87086; 87088; 87493; 89055; 93005; 99285; J0744; J2405; J3475; J7030; Q9967

== ENCOUNTER 2017-11-05 01:44 | Emergency (ER) | payer OTHER ==
[2017-11-05 03:05] LABS: Absolute Lymphocytes (CBC) 2.1 K/uL (0.7-4.9); Absolute Monocytes 0.7 K/uL (0.1-1.3); Basophils % 1.2 % (0-1.3); Eosinophils % 0.5 % (0-4.4); Hematocrit 28.9 % (36.0-45.0); MCH 29.4 pg (27.0-35.0); MCV 89.6 fL (80-100); MPV 8.8 fL (7.6-11.3); Monocytes % 9.1 % (3.3-12.3); RBC Red Blood Cell Count 3.22 M/uL (3.86-4.86)
[2017-11-05 03:17] LABS: Protime INR 1.27
[2017-11-05 03:24] LABS: Potassium 3.1 mEq/L (3.6-5.0)
[2017-11-05 03:30] LABS: Bilirubin Direct 0.2 mg/dL (0-0.2); Bilirubin Total 0.6 mg/dL (0.3-1.2); Protein, Total 5.7 g/dL (6.0-8.3)
[2017-11-05 03:39] LABS: Magnesium 1.1 mg/dL (1.8-2.5)
[2017-11-05 03:59] LABS: Blood Morphology Comment NOT SEEN (NOT SEEN); Platelet Estimate INCR
[2017-11-05] MEDS ORDERED: MAGNESIUM OXIDE 400 MG TAB ONE ×2 (03:59→04:06)
[2017-11-05] MEDS ORDERED: POTASSIUM 25 MEQ EFFERV TAB ONE (03:59)
--- NOTE | 2017-11-05 04:03 | ER ---
Nurse's Notes [facility] Name: Celina Granger Age: 71 yrs Sex: Female : 1945 Arrival Date: 11/05/2017 Time: 01:46 Bed 3 Private MD: Diagnosis: Syncopal episode. Hypokaiemia. Hypomagnesemia Presentation: 11/05 01:53 Presenting complaint: EMS states: [place] staff reported hearing pt yell and when they went aa1 to her room to check on her she was unresponsive even to sternal rub. Upon EMS arrival pt awake and alert with no complaint. Pt reports she remembers talking to another resident and the next thing she knew she was being taken to the hospital. Denies dizziness or nausea. Transition of care: patient was received from another setting of care ([facility]. Onset of symptoms was November 05, 2017. Initial Sepsis Screen: Does the patient meet any 2 criteria? HR > 90 bpm. Does the patient have a suspected source of infection? No. Patient's initial sepsis screen is negative. Care prior to arrival: Glucose check: 165 Oxygen administered. via nasal cannula. 01:53 Method Of Arrival: EMS: [facility] aa1 01:53 Acuity: JESSE 2 aa1 Historical: - Allergies: 02:22 No Known Allergies; aa1 - Home Meds: 02:22 melatonin 3 mg Oral tab 2 tab nightly [Active]; amlodipine-atorvastatin 10-40 mg Oral aa1 tab 1 tab once daily for Arteriosclerotic Vascular Disease [Active]; Flagyl 500 mg Oral tab 1 tab every 8 hours [Active]; Phenergan 25 mg/mL injection soln 1 mL every 8 hours [Active]; Phenergan Oral 25 mg every 8 hours as needed for nausea [Active]; Metoprolol Tartrate 12.5 Oral 1 tab 2 times per day [Active]; ascorbic acid (vitamin C) 500 mg tab daily [Active]; meclizine 25 mg Oral tab 1 tab 3 times per day for Vertigo [Active]; potassium chloride 20 mEq Oral TbER 1 tab once daily [Active]; amlodipine 5 mg tab 1 tab once daily [Active]; alprazolam 0.25 mg Oral tab 1 tab twice a day for Anxiety [Active]; aspirin 81 mg Oral TbEC 1 tab once daily [Active]; Protonix 40 mg Oral TbEC 1 tab 2 times per day [Active]; clopidogrel 75 mg Oral tab 1 tab once daily [Active]; sucralfate 1 gram Oral tab 1 tab before meals and at bedtime [Active]; acetaminophen 325 mg Oral tab 1 tab every 6 hours [Active]; tramadol 50 mg Oral tab 1 tab every 6 hours [Active]; Phenergan 25 mg Rectal supp 1 suppository every 8 hours [Active]; loperamide 2 mg Oral cap 2 caps every 6 hours [Active]; - PMHx: 02:22 Acute Kidney Failure; Anemia; Anxiety; CAD; COPD; GERD; Hyperlipidemia; Hypertension; aa1 Irritable bowel syndrome; Depression; colitis; PVD; vertigo; tachycardia; - PSHx: 02:22 Cholecystectomy; aa1 - Immunization history:: Flu vaccine is up to date. - Social history:: Smoking status: Patient uses tobacco products, smokes one pack cigarettes per day. Screenin:43 Abuse screen: Denies threats or abuse. Denies injuries from another. Nutritional aa1 screening: No deficits noted. Tuberculosis screening: No symptoms or risk factors identified. Fall Risk None identified. Assessment: 01:50 General: Appears in no apparent distress. comfortable, slender, Behavior is calm, aa1 cooperative, appropriate for age. Pain: Denies pain. Neuro: Level of Consciousness is awake, alert, obeys commands, confused, Pt answers name, date, and location correctly but believes she still live in her own apartment in [place] with her when pt is actually a resident at [facility]. Oriented to person, place, time, Moves all extremities. Full function Speech is normal, Facial symmetry appears normal, Pupils are PERRLA. Cardiovascular: Denies chest pain, diaphoresis, palpitations, shortness of breath, Heart tones S1 S2 present. Respiratory: Airway is patent Respiratory effort is even, unlabored, Respiratory pattern is regular, symmetrical. GI: No signs and/or symptoms were reported involving the gastrointestinal system. : No signs and/or symptoms were reported regarding the genitourinary system. EENT: No signs and/or symptoms were reported regarding the EENT system. Derm: Skin is intact, is healthy with good turgor, Skin is pink, warm \T\ dry. Musculoskeletal: Circulation, motion, and sensation intact. Capillary refill < 3 seconds. 02:59 Reassessment: Patient appears in no apparent distress at this time. Patient and/or aa1 family updated on plan of care and expected duration. Pain level reassessed. Patient is alert, oriented x 3, equal unlabored respirations, skin warm/dry/pink. Pt back from CT. 03:39 Reassessment: critical result of magnesium 1.1 reported by laboratory tester. dr Solano informed. mg2 04:08 Reassessment: Patient appears in no apparent distress at this time. Patient and/or aa1 family updated on plan of care and expected duration. Pain level reassessed. Patient is alert, oriented x 3, equal unlabored respirations, skin warm/dry/pink. MD at bedside with pt. Pt states she feels fine and wishes to go home. NH notified of pt d/c \T\ will arrange for transportation. 04:51 Reassessment: Patient appears in no apparent distress at this time. Patient and/or aa1 family updated on plan of care and expected duration. Pain level reassessed. Patient is alert, oriented x 3, equal unlabored respirations, skin warm/dry/pink. [place] states EMS will be present for transport between 0530 and 0700. 06:32 Reassessment: Patient appears in no apparent distress at this time. Patient is alert, aa1 oriented x 3, equal unlabored respirations, skin warm/dry/pink. Self care present to transport pt back to [facility]. Vital Signs: 01:43 BP 100 / 56; Pulse 99; Resp 20; Temp 98.2(O); Pulse Ox 100% on 2 lpm NC; Weight 50.8 aa1 kg; Height 4 ft. 11 in. (149.86 cm); Pain 0/10; 02:59 BP 102 / 70; Pulse 97; Resp 16; Pulse Ox 96% on 2 lpm NC; Pain 0/10; aa1 03:48 BP 139 / 67; Pulse 102; Resp 18; Pulse Ox 100% on 2 lpm NC; Pain 0/10; mg2 04:10 BP 110 / 63; Pulse 99; Resp 16; Pulse Ox 99% on 2 lpm NC; Pain 0/10; aa1 05:24 BP 108 / 65; Pulse 106; Resp 18; Pulse Ox 96% on 2 lpm NC; Pain 0/10; aa1 01:43 Body Mass Index 22.62 (50.80 kg, 149.86 cm) aa1 NIH Stroke Scale Scores: 02:19 NIHSS Score: 0 jr8 ED Course: 01:43 Arm band placed on right wrist. Patient placed in an exam room, on a stretcher, on aa1 oxygen. 01:43 Patient has correct armband on for positive identification. Placed in gown. Bed in low aa1 position. Call light in reach. Side rails up X2. hall monitor on. Pulse ox on. NIBP on. Warm blanket given. 01:43 EKG done, by ED staff, reviewed by Miguel Solano MD. aa1 01:43 Oxygen administration via nasal cannula \T\ 2L/min O2 via Pt has hx of COPD and is on aa1 home O2 at [place]. 01:46 Patient arrived in ED. rg2 01:55 Missed attempt(s): 20 gauge in left antecubital area. Bleeding controlled, band aid aa1 applied, catheter tip intact. 01:56 Triage completed. aa1 02:03 Arturo Rust PA is PHCP. jr8 02:03 Miguel Solano MD is Attending Physician. jr8 02:05 Missed attempt(s): 22 gauge in right antecubital area. Bleeding controlled, band aid aa1 applied, catheter tip intact. 02:[address] via stretcher. vm2 02:46 X-ray completed. Portable x-ray completed in exam room. Patient tolerated procedure kw well. 02:47 XRAY Chest (1 view) In Process Unspecified. EDMS 02:53 Deanna Bullard, RN is Primary Nurse. aa1 03:00 CT completed. Patient tolerated procedure well. Patient moved back from CT. vm2 04:30 CT Head Brain wo Cont In Process Unspecified. EDMS 06:32 No provider procedures requiring assistance completed. Patient did not have IV access aa1 during this emergency room visit. Administered Medications: 04:10 Drug: K-Lyte Effervescent Tablet 50 mEq Route: PO; aa1 05:23 Follow up: Response: No adverse reaction aa1 04:10 Drug: Magnesium 1200 mg Route: PO; aa1 05:23 Follow up: Response: No adverse reaction aa1 Outcome: 06:32 AMA AMA form signed aa1 06:32 Condition: stable 06:32 Discharge instructions given to patient, Instructed on follow up and referral plans. medication usage, Demonstrated understanding of instructions, follow-up care, medications. 06:34 Patient left the ED. aa1 NIH Stroke Scale - NIH Stroke Score Date: 11/05/2017 Time: 02:19 Total Score = 0 1a. Level of Consciousness (LOC) - 0(Alert) 1b. Level of Consciousness (LOC) (Year \T\ Age) - 0(Both) 1c. LOC Commands (Open \T\ Closes Eyes/Parts Professional) - 0(Both) 2. Best Gaze (Lateral Gaze Paresis) - 0(Normal) 3. Visual Field Loss - 0(No visual loss) 4. Facial Palsy - 0(Normal) 5a. Left Arm: Motor (10-second hold) - 0(No drift) 5b. Right Arm: Motor (10-second hold) - 0(No drift) 6a. Left Leg: Motor (5-second hold - always test supine) - 0(No drift) 6b. Right Leg: Motor (5-second hold - always test supine) - 0(No drift) 7. Limb Ataxia (finger/nose \T\ heel/miranda - test with eyes open) - 0(Absent) 8. Sensory Loss (pinprick arms/legs/face) - 0(Normal) 9. Best Language: Aphasia (description/naming/reading) - 0(No aphasia) 10. Dysarthria (speech clarity - read or repeat words) - 0(Normal) 11. Extinction and Inattention (visual/tactile/auditory/spatial/personal) - 0(No abnormality) Initials: jr8 Signatures: Dispatcher [employer] Arnaud Puckett 2 Deanna Bullard RN RN aa1 Emilie Shah Josh, PA PA jr8 Claudia Turner 2 Andreas Daon RN RN mg2 Corrections: (The following items were deleted from the chart) 03:48 03:39 Reassessment: critical result of magnesium 1.1 reported by laboratory tester mg2 mg2
--- NOTE | 2017-11-05 04:03 | EDPHYS ---
Physician Documentation [facility] Name: Celina Granger Age: 71 yrs Sex: Female : 1945 Arrival Date: 11/05/2017 Time: 01:46 Bed 3 Private MD: ED Physician Miguel Solano HPI: 11/05 02:19 This 71 yrs old Female presents to ER via EMS with complaints of possible jr8 syncope. 02:19 The patient has experienced syncope. Onset: The symptoms/episode began/occurred jr8 acutely, today. Duration: This was a single episode. Associated signs and symptoms: The patient has no apparent associated signs or symptoms. Current symptoms: Currently, the patient is not experiencing any symptoms, the patient feels back to baseline, no decreased level of consciousness, no dysphasia, no headache, no paralysis, no visual changes. It is unknown whether or not the patient has had similar symptoms in the past. It is unknown whether or not the patient has recently seen a physician. EMS was called out to [place] after staff heard a scream in patients room. Stated that they found patient laying in bed with eyes rolled upward and was unresponsive. Patient was given sternal rub and came back. EMS called at that time. Patient now alert to person, place, time. Historical: - Allergies: 02:22 No Known Allergies; aa1 - Home Meds: 02:22 melatonin 3 mg Oral tab 2 tab nightly [Active]; amlodipine-atorvastatin 10-40 mg Oral aa1 tab 1 tab once daily for Arteriosclerotic Vascular Disease [Active]; Flagyl 500 mg Oral tab 1 tab every 8 hours [Active]; Phenergan 25 mg/mL injection soln 1 mL every 8 hours [Active]; Phenergan Oral 25 mg every 8 hours as needed for nausea [Active]; Metoprolol Tartrate 12.5 Oral 1 tab 2 times per day [Active]; ascorbic acid (vitamin C) 500 mg tab daily [Active]; meclizine 25 mg Oral tab 1 tab 3 times per day for Vertigo [Active]; potassium chloride 20 mEq Oral TbER 1 tab once daily [Active]; amlodipine 5 mg tab 1 tab once daily [Active]; alprazolam 0.25 mg Oral tab 1 tab twice a day for Anxiety [Active]; aspirin 81 mg Oral TbEC 1 tab once daily [Active]; Protonix 40 mg Oral TbEC 1 tab 2 times per day [Active]; clopidogrel 75 mg Oral tab 1 tab once daily [Active]; sucralfate 1 gram Oral tab 1 tab before meals and at bedtime [Active]; acetaminophen 325 mg Oral tab 1 tab every 6 hours [Active]; tramadol 50 mg Oral tab 1 tab every 6 hours [Active]; Phenergan 25 mg Rectal supp 1 suppository every 8 hours [Active]; loperamide 2 mg Oral cap 2 caps every 6 hours [Active]; - PMHx: 02:22 Acute Kidney Failure; Anemia; Anxiety; CAD; COPD; GERD; Hyperlipidemia; Hypertension; aa1 Irritable bowel syndrome; Depression; colitis; PVD; vertigo; tachycardia; - PSHx: 02:22 Cholecystectomy; aa1 - Immunization history:: Flu vaccine is up to date. - Social history:: Smoking status: Patient uses tobacco products, smokes one pack cigarettes per day. ROS: 02:19 Eyes: Negative for injury, pain, redness, and discharge, ENT: Negative for injury, jr8 pain, and discharge, Neck: Negative for injury, pain, and swelling, Cardiovascular: Negative for chest pain, palpitations, and edema, Respiratory: Negative for shortness of breath, cough, wheezing, and pleuritic chest pain, Abdomen/GI: Negative for abdominal pain, nausea, vomiting, diarrhea, and constipation, Back: Negative for injury and pain, MS/Extremity: Negative for injury and deformity, Skin: Negative for injury, rash, and discoloration, Neuro: Negative for headache, weakness, numbness, tingling, and seizure. Positive for syncopal like episode Exam: 02:19 Head/Face: Normocephalic, atraumatic. Eyes: Pupils equal round and reactive to light, jr8 extra-ocular motions intact. Lids and lashes normal. Conjunctiva and sclera are non-icteric and not injected. Cornea within normal limits. Periorbital areas with no swelling, redness, or edema. ENT: Nares patent. No nasal discharge, no septal abnormalities noted. Tympanic membranes are normal and external auditory canals are clear. Oropharynx with no redness, swelling, or masses, exudates, or evidence of obstruction, uvula midline. Mucous membranes moist. Neck: Trachea midline, no thyromegaly or masses palpated, and no cervical lymphadenopathy. Supple, full range of motion without nuchal rigidity, or vertebral point tenderness. No Meningismus. Cardiovascular: Regular rate and rhythm with a normal S1 and S2. No gallops, murmurs, or rubs. Normal PMI, no JVD. No pulse deficits. Respiratory: Lungs have equal breath sounds bilaterally, clear to auscultation and percussion. No rales, rhonchi or wheezes noted. No increased work of breathing, no retractions or nasal flaring. Abdomen/GI: Soft, non-tender, with normal bowel sounds. No distension or tympany. No guarding or rebound. No evidence of tenderness throughout. Back: No spinal tenderness. No costovertebral tenderness. Full range of motion. Skin: Warm, dry with normal turgor. Normal color with no rashes, no lesions, and no evidence of cellulitis. MS/ Extremity: Pulses equal, no cyanosis. Neurovascular intact. Full, normal range of motion. 02:19 Neuro: Orientation: to person, place, time, Mentation: confused, Although patient is alert to person, place, time. Patient stated that prior to arrival she and her were having a conversation. That her told her that she looked bad. Next thing she remembers is EMS picking her up. Patient does not live at home nor was her at [place] at that time , Cranial nerves: CN I not tested, CN II- XII are normal as tested, visual neri are intact. extraocular movements are intact, Facial palsy and sensory deficits are absent. Nystagmus is absent. Speech is clear and appropriate. Tongue strength is normal, Cerebellar function: normal finger to nose testing, heel to miranda testing is normal, Motor: moves all fours, Sensation: no obvious gross deficits, seizure activity, is not displayed by the patient, Abnormal movements: there are no abnormal movements. Vital Signs: 01:43 BP 100 / 56; Pulse 99; Resp 20; Temp 98.2(O); Pulse Ox 100% on 2 lpm NC; Weight 50.8 aa1 kg; Height 4 ft. 11 in. (149.86 cm); Pain 0/10; 02:59 BP 102 / 70; Pulse 97; Resp 16; Pulse Ox 96% on 2 lpm NC; Pain 0/10; aa1 03:48 BP 139 / 67; Pulse 102; Resp 18; Pulse Ox 100% on 2 lpm NC; Pain 0/10; mg2 04:10 BP 110 / 63; Pulse 99; Resp 16; Pulse Ox 99% on 2 lpm NC; Pain 0/10; aa1 05:24 BP 108 / 65; Pulse 106; Resp 18; Pulse Ox 96% on 2 lpm NC; Pain 0/10; aa1 01:43 Body Mass Index 22.62 (50.80 kg, 149.86 cm) aa1 NIH Stroke Scale Scores: 02:19 NIHSS Score: 0 MDM: 02:03 Patient medically screened. 03:59 Data reviewed: vital signs, nurses notes, lab test result(s), EKG, radiologic studies, pkl CT scan, plain films. ED course: Patient insists on leaving to go back to the correction now and will return later for further treatment. Signed AMA. 11/05 02:05 Order name: Basic Metabolic Panel; Complete Time: 03:47 11/05 02:05 Order name: BNP; Complete Time: 03:47 11/05 02:05 Order name: CBC with Diff; Complete Time: 06:10 11/05 02:05 Order name: CPK; Complete Time: 03:47 11/05 02:05 Order name: LFT's; Complete Time: 03:47 11/05 02:05 Order name: Magnesium; Complete Time: 03:47 11/05 02:05 Order name: PT-INR; Complete Time: 03:47 11/05 02:05 Order name: Troponin (emerg Dept Use Only); Complete Time: 03:47 11/05 02:05 Order name: XRAY Chest (1 view); Complete Time: 15:36 11/05 02:05 Order name: EKG; Complete Time: 02:06 11/05 02:05 Order name: CT Head Brain wo Cont; Complete Time: 15:36 11/05 03:20 Order name: Manual Differential; Complete Time: 06:10 EDMT 11/05 02:05 Order name: Cardiac monitoring; Complete Time: 02:06 11/05 02:05 Order name: EKG - Nurse/Tech; Complete Time: 02:06 11/05 02:05 Order name: Labs collected and sent; Complete Time: 02:11/05 02:05 Order name: O2 Per Protocol; Complete Time: :11/05 02:05 Order name: O2 Sat Monitoring; Complete Time: : Administered Medications: 04:10 Drug: K-Lyte Effervescent Tablet 50 mEq Route: PO; aa1 05:23 Follow up: Response: No adverse reaction aa1 04:10 Drug: Magnesium 1200 mg Route: PO; aa1 05:23 Follow up: Response: No adverse reaction aa1 Disposition: 03:57 Co-signature as Attending Physician, Miguel Solano MD. pkl Disposition: 11/05/17 04:02 Patient has left against medical advice. Impression: Syncopal episode. Hypokaiemia. Hypomagnesemia. - Patients states they are going to Home. - Condition is Stable. Follow up: Private Physician; When: 1 - 2 days; Reason: Re-evaluation by your physician. - Problem is new. - Symptoms have improved. NIH Stroke Scale - NIH Stroke Score Date: 11/05/2017 Time: 02:19 Total Score = 0 1a. Level of Consciousness (LOC) - 0(Alert) 1b. Level of Consciousness (LOC) (Year \T\ Age) - 0(Both) 1c. LOC Commands (Open \T\ Closes Eyes/Ob[employer]e [employer] Solution Architect) - 0(Both) 2. Best Gaze (Lateral Gaze Paresis) - 0(Normal) 3. Visual Field Loss - 0(No visual loss) 4. Facial Palsy - 0(Normal) 5a. Left Arm: Motor (10-second hold) - 0(No drift) 5b. Right Arm: Motor (10-second hold) - 0(No drift) 6a. Left Leg: Motor (5-second hold - always test supine) - 0(No drift) 6b. Right Leg: Motor (5-second hold - always test supine) - 0(No drift) 7. Limb Ataxia (finger/nose \T\ heel/miranda - test with eyes open) - 0(Absent) 8. Sensory Loss (pinprick arms/legs/face) - 0(Normal) 9. Best Language: Aphasia (description/naming/reading) - 0(No aphasia) 10. Dysarthria (speech clarity - read or repeat words) - 0(Normal) 11. Extinction and Inattention (visual/tactile/auditory/spatial/personal) - 0(No abnormality) Initials: jr8 Signatures: Dispatcher [employer] Deanna Gray RN RN aa1 Miguel Solano MD MD pkl Arturo Rust PA PA jr8 Corrections: (The following items were deleted from the chart) 06:34 04:02 11/05/2017 04:02 Patients has left against medical advice. Impression: aa1 Syncopal episode. Hypokaiemia. Hypomagnesemia. Patient states they are going to Home. Condition is Stable. Follow up: Private Physician; When: 1 - 2 days; Reason: Re-evaluation by your physician. Problem is new. Symptoms have improved. pkl
[2017-11-05 06:46] VITALS: BP 108/65; O2SAT 96
--- NOTE | 2017-11-05 08:17 | RAD REPORT ---
EXAM DESCRIPTION: John Single View11/05/2017 2:49 am CLINICAL HISTORY: Shortness of breath COMPARISON: September 2017 FINDINGS: The lungs appear clear of acute infiltrate. The heart is normal size IMPRESSION: No acute abnormalities displayed
--- NOTE | 2017-11-05 08:44 | RAD REPORT ---
EXAM DESCRIPTION: CT - Head Brain Wo Cont - 11/05/2017 6:19 am CLINICAL HISTORY: Alteration of consciousness/memory loss COMPARISON: September 2017 TECHNIQUE: Computed axial tomography of the head was obtained. IV contrast was not requested.A preli minary report was given by [employer] and reviewed prior to this dictation All CT scans are performed using dose optimization technique as appropriate and may include automated exposure control or mA/KV adjustment according to patient size. FINDINGS: An intracranial bleed is not seen . The ventricles are normal in caliber. No extra-axial fluid collection is noted. 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 Mild chronic sphenoid sinusitis is present. Fluid within mastoids is not IMPRESSION: No acute intracranial abnormality is seen. If patient's symptoms persist MRI of the bra in would be recommended.
--- NOTE | 2017-11-05 12:00 | EKG ---
Test Date: 2017-11-05 Test Time: 01:47:55 Chemical Test Engineer: MEASUREMENT RESULTS: Intervals: Rate: 105 NE: 136 QRSD: 72 QT: 350 QTc: 462 [place]: P: 61 NE: 136 QRS: 54 T: 89 INTERPRETIVE STATEMENTS: Sinus tachycardia Otherwise normal ECG Electronically Signed On 11-05-17 11:59:57 CDT by Jose Patiño
== END 2017-11-05 06:34 | disposition left against medical advice (07) ==
LOC: ER 01:44
DX: E87.6 Hypokalemia (principal); E83.42 Hypomagnesemia; N17.9 Acute kidney failure, unspecified; I10 Essential (primary) hypertension; I25.10 Atherosclerotic heart disease of native coronary artery without angina pectoris; E78.5 Hyperlipidemia, unspecified; F17.210 Nicotine dependence, cigarettes, uncomplicated; Z79.82 Long term (current) use of aspirin
CPT/HCPCS: 36415; 70450; 71045; 80048; 80076; 82550; 83735; 83880; 84484; 85025; 85610; 93005; 99285

== ENCOUNTER 2017-11-07 12:44 | Emergency (ER) | payer OTHER ==
[2017-11-07] MEDS ORDERED: NA CHLORIDE 0.9% 1,000 ML ONE ×2 (13:40→19:25)
[2017-11-07] MEDS ORDERED: ONDANSETRON 4 MG/2 ML VIAL ONE (13:41)
[2017-11-07 13:51] LABS: Protime INR 1.3
[2017-11-07 14:03] LABS: Absolute Lymphocytes (CBC) 1.4 K/uL (0.7-4.9); Absolute Monocytes 0.6 K/uL (0.1-1.3); Absolute Neutrophil 7.5 K/uL (1.8-8.0); Basophils % 0.8 % (0-1.3); Eosinophils % 0.5 % (0-4.4); Hematocrit 30.1 % (36.0-45.0); Lymphocytes % 14.2 % (15.3-44.8); MCH 29.6 pg (27.0-35.0); MCV 90.8 fL (80-100); MPV 8.7 fL (7.6-11.3); Monocytes % 6.6 % (3.3-12.3); RBC Red Blood Cell Count 3.31 M/uL (3.86-4.86)
[2017-11-07 14:14] LABS: Bicarbonate 22 mEq/L (21-31); Glucose Level 145 mg/dL (65-120); Potassium 3.4 mEq/L (3.6-5.0); Sodium Level 134 mEq/L (135-145)
[2017-11-07 14:20] LABS: ALT/SGPT 9 IU/L (10-60); AST/SGOT 16 IU/L (10-42); Albumin 2.1 g/dL (3.2-5.5); Alkaline Phosphatase 170 IU/L (42-121); BUN Blood Urea Nitrogen 7 mg/dL (6-20); Bilirubin Direct 0.1 mg/dL (0-0.2); Bilirubin Total 0.4 mg/dL (0.3-1.2); Creatine Phosphokinase 13 IU/L (22-269)
[2017-11-07 14:33] LABS: Magnesium 1.2 mg/dL (1.8-2.5)
[2017-11-07] MEDS ORDERED: Magnesium Sulfate 2gm IVPB 2 G/50 ML BAG IV ONE (15:23)
--- NOTE | 2017-11-07 15:48 | EKG ---
Test Date: 2017-11-07 Test Time: 13:04:55 Sample Shoe Inspector And Reworker: CAROL MEASUREMENT RESULTS: Intervals: Rate: 102 [place]: QRSD: 62 QT: 344 QTc: 448 [place]: P: [place]: QRS: 57 T: 73 INTERPRETIVE STATEMENTS: Sinus rhythm Non specific T abnormality Abnormal ECG Compared to ECG 11/05/2017 01:47:55 Sinus tachycardia no longer present Electronically Signed On 11-07-17 15:48:11 CDT by Jose Patiño
--- NOTE | 2017-11-07 15:50 | RAD REPORT ---
EXAM DESCRIPTION: John Single View11/07/2017 2:01 pm CLINICAL HISTORY: Atrial fibrillation COMPARISON: November 01, 2017 FINDINGS: The lungs appear clear of acute infiltrate. The heart is normal size IMPRESSION: No acute abnormalities displayed
--- NOTE | 2017-11-07 16:20 | ER ---
Nurse's Notes [facility] Name: Celina Granger Age: 71 yrs Sex: Female : 1945 Arrival Date: 11/07/2017 Time: 12:50 Bed 19 Private MD: Diagnosis: New onset seizures;Dehydration;Hypotension;Hypomagnesemia Presentation: 11/07 12:54 Presenting complaint: EMS states: called out for unresponsive, hypotensive pt coming em from [facility], on scene systolic BP was 100's, SPO2 high 80's, responsive when EMS arrived, A\\T\\O 1-2 on scene, pt c/o N/V and abd pain, hx of Afib. Transition of care: patient was not received from another setting of care. Onset of symptoms was November 07, 2017. Initial Sepsis Screen:. Care prior to arrival: None. 12:54 Method Of Arrival: EMS: [facility] em 12:54 Acuity: JESSE 2 iw 12:54 Initial Sepsis Screen: Does the patient meet any 2 criteria? No. Patient's initial iw sepsis screen is negative. Does the patient have a suspected source of infection? No. Patient's initial sepsis screen is negative. Historical: - Allergies: 13:05 No Known Allergies; em - Home Meds: 13:05 acetaminophen 325 mg Oral tab 1 tab every 6 hours [Active]; alprazolam 0.25 mg Oral tab em 1 tab twice a day for Anxiety [Active]; amlodipine 5 mg tab 1 tab once daily [Active]; amlodipine-atorvastatin 10-40 mg Oral tab 1 tab once daily for Arteriosclerotic Vascular Disease [Active]; ascorbic acid (vitamin C) 500 mg tab daily [Active]; aspirin 81 mg Oral TbEC 1 tab once daily [Active]; clopidogrel 75 mg Oral tab 1 tab once daily [Active]; Flagyl 500 mg Oral tab 1 tab every 8 hours [Active]; loperamide 2 mg Oral cap 2 caps every 6 hours [Active]; meclizine 25 mg Oral tab 1 tab 3 times per day for Vertigo [Active]; melatonin 3 mg Oral tab 2 tab nightly [Active]; Metoprolol Tartrate 12.5 Oral 1 tab 2 times per day [Active]; Phenergan Oral 25 mg every 8 hours as needed for nausea [Active]; Phenergan 25 mg/mL injection soln 1 mL every 8 hours [Active]; Phenergan 25 mg Rectal supp 1 suppository every 8 hours [Active]; potassium chloride 20 mEq Oral TbER 1 tab once daily [Active]; Protonix 40 mg Oral TbEC 1 tab 2 times per day [Active]; sucralfate 1 gram Oral tab 1 tab before meals and at bedtime [Active]; tramadol 50 mg Oral tab 1 tab every 6 hours [Active]; - PMHx: 18:16 Acute Kidney Failure; Anemia; Anxiety; CAD; Colitis; COPD; Depression; GERD; iw Hyperlipidemia; Hypertension; Irritable bowel syndrome; PVD; Tachycardia; Vertigo; - Immunization history:: Adult Immunizations up to date. - Social history:: Smoking status: Patient/guardian denies using tobacco. Screenin:59 Abuse screen: Denies threats or abuse. Nutritional screening: No deficits noted. em Tuberculosis screening: No symptoms or risk factors identified. Fall Risk None identified. Assessment: 13:08 General: Appears in no apparent distress. comfortable, Behavior is calm, cooperative. em Pain: Complains of pain in abdomen Pain currently is 7 out of 10 on a pain scale. Neuro: Level of Consciousness is awake, alert, Oriented to person, place. Cardiovascular: Capillary refill < 3 seconds Patient's skin is warm and dry. Respiratory: Airway is patent Respiratory effort is even, unlabored, Respiratory pattern is regular, symmetrical, Breath sounds are clear bilaterally. GI: Abdomen is flat, Reports nausea, vomiting. : No signs and/or symptoms were reported regarding the genitourinary system. EENT: No signs and/or symptoms were reported regarding the EENT system. Derm: Skin is intact, Skin is pink, warm \\T\\ dry. Musculoskeletal: Range of motion: intact in all extremities. 13:15 Reassessment: Patient appears in no apparent distress at this time. I agree with above iw assessment by Jordi Norman LVN. 14:00 Reassessment: Patient appears in no apparent distress at this time. pt has no IV em access, FRANCIS Morris notified, will attempt with the ultrasound. 15:37 Reassessment: Patient appears in no apparent distress at this time. Patient and/or em family updated on plan of care and expected duration. Pain level reassessed. Foreign Granger (son) at bedside, states that last time her magnesium and potassium were low, that she was "acting the same and being confused." pt A\\T\\Ox2, respirations even and unlabored, skin pink warm and dry. 16:30 Reassessment: Patient appears in no apparent distress at this time. Patient and/or em family updated on plan of care and expected duration. Pain level reassessed. Foreign Granger (son) - ([phone]), pt A\\T\\Ox2, respirations even and unlabored, skin pink warm and dry. 17:06 Reassessment: Patient appears in no apparent distress at this time. Patient and/or em family updated on plan of care and expected duration. Pain level reassessed. answers questions appropriately at the time you ask her, but son states, she is confused with the time of events, does not have a hx of dementia, pt A\\T\\Ox2, respirations even and unlabored, skin pink warm and dry Patient states feeling better. 18:08 Reassessment: pt having seizure like activity, FRANCIS Morris at bedside, pt placed on 2L via em NC, new medication orders received, pt in postictal like state. 18:40 Reassessment: Patient appears in no apparent distress at this time. Patient is em alert/active/playful, equal unlabored respirations, skin warm/dry/pink. pt A\\T\\Ox2, respirations even and unlabored, skin pink warm and dry. 19:35 Reassessment: Patient and/or family updated on plan of care and expected duration. Pain mb3 level reassessed. Patient is alert, oriented x 3, equal unlabored respirations, skin warm/dry/pink. 20:46 Reassessment: spoke with son Foreign Granger [phone] and explained to him pts fc diagnosis and reason for transfer. He understands this and that pt is being transferred to [facility] . 22:30 Reassessment: Called Foreign shannon and left a message. Report called to Chu Luna RN mb3 \\T\\ [id number], pt will be transferred to room 2214 at [facility]. Vital Signs: 12:59 BP 99 / 71; Pulse 106; Resp 18; Temp 97.6(O); Pulse Ox 97% on R/A; Weight 52.16 kg; em Height 4 ft. 11 in. (149.86 cm); Pain 7/10; 13:54 BP 104 / 66; Pulse 101; Resp 21; Pulse Ox 99% on R/A; mh5 14:52 BP 99 / 69; Pulse 106; Resp 18; Pulse Ox 100% on R/A; mh5 15:37 BP 97 / 74; Pulse 99; Resp 14; Pulse Ox 100% on R/A; em 16:27 BP 133 / 101; Pulse 97; Resp 15; Pulse Ox 100% on R/A; mh5 17:08 BP 106 / 51; Pulse 96; Resp 17; Pulse Ox 99% on R/A; em 18:08 BP 141 / 78; Pulse 103; Resp 17; Pulse Ox 100% on 2 lpm NC; em 19:32 BP 95 / 55; Pulse 89; Resp 20; Pulse Ox 100% on 2 lpm NC; mb3 20:45 BP 112 / 72; Pulse 93; Resp 20; Pulse Ox 100% on 2 lpm NC; mb3 12:59 Body Mass Index 23.23 (52.16 kg, 149.86 cm) em ED Course: 12:50 Patient arrived in ED. iw 12:50 Jordi Norman LVN is Primary Nurse. em 13:02 Arturo Rust PA is PHCP. jr8 13:02 Fidel Bruno MD is Attending Physician. jr8 13:04 EKG done, by broadcast maintenance technician. reviewed by Arturo BLANCO. at1 13:05 Missed attempt(s): 22 gauge in left antecubital area. mh5 13:05 Patient has correct armband on for positive identification. Bed in low position. Side mh5 rails up X2. Warm blanket given. Pillow given. monitoring manager on. Pulse ox on. NIBP on. 13:20 No provider procedures requiring assistance completed. em 13:20 Arm band placed on. em 13:36 Triage completed. iw 14:01 X-ray completed. Portable x-ray completed in exam room. Patient tolerated procedure jb2 well. 14:01 XRAY Chest (1 view) In Process Unspecified. EDMS 15:21 assisted Arturo Sharpe with EJ insertion. Inserted saline lock: 20 gauge in left EJ, using 5 aseptic technique. ,using aseptic technique. inserted by Arturo Sharpe. 16:19 Davy Grossman MD is Hospitalizing Provider. jr8 16:21 Hospitalizing Provider role handed off by Davy Grossman MD jr8 16:21 Kristi West MD is Hospitalizing Provider. jr8 18:07 PHCP role handed off by Arturo Rust PA pm1 18:07 Rowdy Vasques NP is PHCP. pm1 18:38 Head Brain Wo Cont In Process Unspecified. EDMS 18:44 CT completed. Patient tolerated procedure well. Patient moved to CT via stretcher. eh Patient moved back from CT. 19:24 Primary Nurse role handed off by Jordi Norman LVN rg2 21:13 Jay Caldwell, RN is Primary Nurse. mb3 22:28 Patient transferred, IV remains in place. mb3 Administered Medications: 15:33 Drug: NS 0.9% 1000 ml Route: IV; Rate: 1000 ml; Site: left jugular; iw 17:12 Follow up: IV Status: Completed infusion; IV Intake: 1000ml em 15:34 Drug: Zofran 4 mg Route: IVP; Site: left jugular; iw 16:00 Follow up: Response: No adverse reaction em 15:34 Drug: Magnesium Sulfate 2 grams Route: IVPB; Infused Over: 2 hrs; Site: left jugular; iw 18:08 Follow up: IV Status: Completed infusion; IV Intake: 100ml em 18:20 Drug: Fosphenytoin 1 grams Route: IVPB; Site: left jugular; iw 19:09 Follow up: IV Status: Completed infusion; IV Intake: 100ml em 19:29 Drug: NS 0.9% 1000 ml Route: IV; Rate: 100 ml/hr; Site: Other; mb3 22:26 Follow up: Response: No adverse reaction; IV Status: Completed infusion; IV Intake: mb3 1000ml 19:30 Drug: NS 0.9% 500 ml Route: IV; Rate: bolus; Site: Other; mb3 22:27 Follow up: Response: No adverse reaction; IV Status: Completed infusion; IV Intake: mb3 500ml Intake: 17:12 IV: 1000ml; Total: 1000ml. em 18:08 IV: 100ml; Total: 1100ml. em 19:09 IV: 100ml; Total: 1200ml. em 22:26 IV: 1000ml; Total: 2200ml. mb3 22:27 IV: 500ml; Total: 2700ml. mb3 Outcome: 16:20 Decision to Hospitalize by Provider. jr8 19:09 ER care complete, transfer ordered by MD. pm1 22:29 Transferred by ground EMS to [facility], [facility], Transfer form completed. mb3 22:29 Condition: stable 22:29 Instructed on the need for transfer. 22:32 Patient left the ED. mb3 Signatures: Dispatcher [employer] EDMS Arnaud Noriega2 Anup Quintana Ervin eh Chretien, Felicia, RN RN fc Jordi Norman, HERBICIDE SERVICE SALES REPRESENTATIVE HERBICIDE SERVICE SALES REPRESENTATIVE em Johana Caballero RN LETI iw Arturo Rust PA PA jr8 Sharmaine montoya, plant technician/control room operator EKG Tat1 Rowdy Vasques, INTERNET DESIGNER INTERNET DESIGNER pm1 More Horton 5 Jay Caldwell, RN RN mb3 Corrections: (The following items were deleted from the chart) 12:58 12:54 Presenting complaint: EMS states: called out for unresponsive, hypotensive pt, on em scene systolic BP was 100's, responsive to EMS A\\T\\O 1-2 on scene, pt c/o N/V and abd pain, hx of Afib em 17:11 15:37 Reassessment: Patient appears in no apparent distress at this time. Patient em and/or family updated on plan of care and expected duration. Pain level reassessed. Patient is alert, oriented x 3, equal unlabored respirations, skin warm/dry/pink. Foreign Granger (son) at bedside, states that last time her magnesium and potassium were low, that she was "acting the same and being confused" em 17:11 17:06 Reassessment: Patient appears in no apparent distress at this time. Patient em and/or family updated on plan of care and expected duration. Pain level reassessed. Patient is alert, oriented x 3, equal unlabored respirations, skin warm/dry/pink. answers questions appropriately at the time you ask her, but son states, she is confused with the time of events, does not have a hx of dementia Patient states feeling better. em 17:11 16:30 Reassessment: Patient appears in no apparent distress at this time. Patient em and/or family updated on plan of care and expected duration. Pain level reassessed. Foreign Granger (son) - ([phone]) em 18:09 18:08 Reassessment: pt having seizure like activity, FRANCIS Morris at bedside, pt placed on em 2L via NC, new medication orders received em 21:32 20:46 Reassessment: spoke with son Foreign Granger and explained to him pts diagnosis and fc reason for transfer. He understands this and that pt is being transferred to [facility] . fc 21:33 20:46 Reassessment: spoke with son Foreign Granger [phone] and explained to him pts fc diagnosis and reason for transfer. He understands this and that pt is being transferred to [facility] . fc
--- NOTE | 2017-11-07 16:20 | EDPHYS ---
Physician Documentation [facility] Name: Celina Granger Age: 71 yrs Sex: Female : 1945 Arrival Date: 11/07/2017 Time: 12:50 Bed 19 Private MD: ED Physician Fidel Bruno HPI: 11/07 16:11 This 71 yrs old Female presents to ER via EMS with complaints of syncope. jr8 16:11 The patient has experienced syncope. Onset: The symptoms/episode began/occurred jr8 acutely, today. Duration: This was a single episode. Context: the episode(s) was witnessed, by the fdc staff, occurred at a fdc or assisted living facility. Associated signs and symptoms: The patient has no apparent associated signs or symptoms. Current symptoms: Currently, the patient is not experiencing any symptoms. The patient has experienced a previous episode. The patient has been recently seen at the [facility] Emergency Department. Patient was seen the a couple of days ago in ED for syncope and was found to be hypokalemic and hypomagnesemic. AMA was completed at that time. Came back to hospital today for syncope. Historical: - Allergies: 13:05 No Known Allergies; em - Home Meds: 13:05 acetaminophen 325 mg Oral tab 1 tab every 6 hours [Active]; alprazolam 0.25 mg Oral tab em 1 tab twice a day for Anxiety [Active]; amlodipine 5 mg tab 1 tab once daily [Active]; amlodipine-atorvastatin 10-40 mg Oral tab 1 tab once daily for Arteriosclerotic Vascular Disease [Active]; ascorbic acid (vitamin C) 500 mg tab daily [Active]; aspirin 81 mg Oral TbEC 1 tab once daily [Active]; clopidogrel 75 mg Oral tab 1 tab once daily [Active]; Flagyl 500 mg Oral tab 1 tab every 8 hours [Active]; loperamide 2 mg Oral cap 2 caps every 6 hours [Active]; meclizine 25 mg Oral tab 1 tab 3 times per day for Vertigo [Active]; melatonin 3 mg Oral tab 2 tab nightly [Active]; Metoprolol Tartrate 12.5 Oral 1 tab 2 times per day [Active]; Phenergan Oral 25 mg every 8 hours as needed for nausea [Active]; Phenergan 25 mg/mL injection soln 1 mL every 8 hours [Active]; Phenergan 25 mg Rectal supp 1 suppository every 8 hours [Active]; potassium chloride 20 mEq Oral TbER 1 tab once daily [Active]; Protonix 40 mg Oral TbEC 1 tab 2 times per day [Active]; sucralfate 1 gram Oral tab 1 tab before meals and at bedtime [Active]; tramadol 50 mg Oral tab 1 tab every 6 hours [Active]; - PMHx: 18:16 Acute Kidney Failure; Anemia; Anxiety; CAD; Colitis; COPD; Depression; GERD; iw Hyperlipidemia; Hypertension; Irritable bowel syndrome; PVD; Tachycardia; Vertigo; - Immunization history:: Adult Immunizations up to date. - Social history:: Smoking status: Patient/guardian denies using tobacco. ROS: 16:11 Eyes: Negative for injury, pain, redness, and discharge, ENT: Negative for injury, jr8 pain, and discharge, Neck: Negative for injury, pain, and swelling, Cardiovascular: Negative for chest pain, palpitations, and edema, Respiratory: Negative for shortness of breath, cough, wheezing, and pleuritic chest pain, Abdomen/GI: Negative for abdominal pain, nausea, vomiting, diarrhea, and constipation, Back: Negative for injury and pain, MS/Extremity: Negative for injury and deformity, Skin: Negative for injury, rash, and discoloration. 16:11 Neuro: Positive for syncope, weakness. Exam: 16:11 Eyes: Pupils equal round and reactive to light, extra-ocular motions intact. Lids and jr8 lashes normal. Conjunctiva and sclera are non-icteric and not injected. Cornea within normal limits. Periorbital areas with no swelling, redness, or edema. ENT: Nares patent. No nasal discharge, no septal abnormalities noted. Tympanic membranes are normal and external auditory canals are clear. Oropharynx with no redness, swelling, or masses, exudates, or evidence of obstruction, uvula midline. Mucous membranes moist. Neck: Trachea midline, no thyromegaly or masses palpated, and no cervical lymphadenopathy. Supple, full range of motion without nuchal rigidity, or vertebral point tenderness. No Meningismus. Cardiovascular: Regular rate and rhythm with a normal S1 and S2. No gallops, murmurs, or rubs. Normal PMI, no JVD. No pulse deficits. Respiratory: Lungs have equal breath sounds bilaterally, clear to auscultation and percussion. No rales, rhonchi or wheezes noted. No increased work of breathing, no retractions or nasal flaring. Abdomen/GI: Soft, non-tender, with normal bowel sounds. No distension or tympany. No guarding or rebound. No evidence of tenderness throughout. Back: No spinal tenderness. No costovertebral tenderness. Full range of motion. Skin: Warm, dry with normal turgor. Normal color with no rashes, no lesions, and no evidence of cellulitis. MS/ Extremity: Pulses equal, no cyanosis. Neurovascular intact. Full, normal range of motion. Neuro: Awake and alert, GCS 15, oriented to person, place. Cranial nerves II-XII grossly intact. Motor strength 5/5 in all extremities. Sensory grossly intact. Cerebellar exam normal. Vital Signs: 12:59 BP 99 / 71; Pulse 106; Resp 18; Temp 97.6(O); Pulse Ox 97% on R/A; Weight 52.16 kg; em Height 4 ft. 11 in. (149.86 cm); Pain 7/10; 13:54 BP 104 / 66; Pulse 101; Resp 21; Pulse Ox 99% on R/A; mh5 14:52 BP 99 / 69; Pulse 106; Resp 18; Pulse Ox 100% on R/A; mh5 15:37 BP 97 / 74; Pulse 99; Resp 14; Pulse Ox 100% on R/A; em 16:27 BP 133 / 101; Pulse 97; Resp 15; Pulse Ox 100% on R/A; mh5 17:08 BP 106 / 51; Pulse 96; Resp 17; Pulse Ox 99% on R/A; em 18:08 BP 141 / 78; Pulse 103; Resp 17; Pulse Ox 100% on 2 lpm NC; em 19:32 BP 95 / 55; Pulse 89; Resp 20; Pulse Ox 100% on 2 lpm NC; mb3 20:45 BP 112 / 72; Pulse 93; Resp 20; Pulse Ox 100% on 2 lpm NC; mb3 12:59 Body Mass Index 23.23 (52.16 kg, 149.86 cm) em MDM: 13:02 Patient medically screened. [facility] 16:17 Data reviewed: vital signs, nurses notes, lab test result(s), EKG, radiologic studies, jr8 plain films, and as a result, I will admit patient. Data interpreted: Pulse oximetry: on room air is 100 %. Interpretation: normal. Counseling: I had a detailed discussion with the patient and/or guardian regarding: the historical points, exam findings, and any diagnostic results supporting the discharge/admit diagnosis, lab results, radiology results, the need for further work-up and treatment in the hospital. Physician consultation: Kristi West MD was called at 16:19, was contacted at 16:19, regarding admission, to the telemetry unit. consult, patient's condition. 19:00 Physician consultation: Kristi West MD was contacted at 19:00, regarding patient's pm1 condition, new onset seizure. No neurology present. Will transfer patient for neurology consultation and further evaluation such as MRI. 19:07 Counseling: I had a detailed discussion with the patient and/or guardian regarding: the pm1 historical points, exam findings, and any diagnostic results supporting the discharge/admit diagnosis, lab results, radiology results, the need to transfer to another facility, [facility] does not immediately have the required specialist, No neurology present. 19:16 Physician consultation: [facility] Deputy District [employer] Director Frederick and will see patient. pm1 11/07 13:13 Order name: Basic Metabolic Panel; Complete Time: 14:38 11/07 13:13 Order name: CBC with Diff; Complete Time: 17:47 11/07 13:13 Order name: CPK; Complete Time: 14:38 11/07 13:13 Order name: LFT's; Complete Time: 14:38 11/07 13:13 Order name: Magnesium; Complete Time: 14:38 11/07 13:13 Order name: PT-INR; Complete Time: 14:07 11/07 13:13 Order name: XRAY Chest (1 view); Complete Time: 15:52 11/07 13:13 Order name: Troponin (emerg Dept Use Only); Complete Time: 14:27 11/07 17:44 Order name: CBC Smear Scan; Complete Time: 17:47 EDMS 11/07 18:25 Order name: Urine Dipstick--Ancillary (enter results) ag 11/07 18:27 Order name: Urine Dipstick-Ancillary; Complete Time: 18:31 EDMS 11/07 18:38 Order name: Head Brain Wo Cont; Complete Time: 18:57 [facility] 11/07 13:13 Order name: EKG; Complete Time: 13:14 [facility] 11/07 13:13 Order name: Cardiac monitoring; Complete Time: :22 [facility] 11/07 13:13 Order name: EKG - Nurse/Tech; Complete Time: 13:22 [facility] 11/07 13:13 Order name: IV Saline Lock; Complete Time: : 11/07 13:13 Order name: Labs collected and sent; Complete Time: :11/07 13:13 Order name: O2 Per Protocol; Complete Time: : [facility] 11/07 13:13 Order name: O2 Sat Monitoring; Complete Time: [facility] 11/07 13:13 Order name: Urine Dipstick-Ancillary (obtain specimen); Complete Time: 18:46 [facility] 11/07 16:25 Order name: Diet Regular; Complete Time: 16:26 ag Administered Medications: 15:33 Drug: NS 0.9% 1000 ml Route: IV; Rate: 1000 ml; Site: left jugular; iw 17:12 Follow up: IV Status: Completed infusion; IV Intake: 1000ml em 15:34 Drug: Zofran 4 mg Route: IVP; Site: left jugular; iw 16:00 Follow up: Response: No adverse reaction em 15:34 Drug: Magnesium Sulfate 2 grams Route: IVPB; Infused Over: 2 hrs; Site: left jugular; iw 18:08 Follow up: IV Status: Completed infusion; IV Intake: 100ml em 18:20 Drug: Fosphenytoin 1 grams Route: IVPB; Site: left jugular; iw 19:09 Follow up: IV Status: Completed infusion; IV Intake: 100ml em 19:29 Drug: NS 0.9% 1000 ml Route: IV; Rate: 100 ml/hr; Site: Other; mb3 22:26 Follow up: Response: No adverse reaction; IV Status: Completed infusion; IV Intake: mb3 1000ml 19:30 Drug: NS 0.9% 500 ml Route: IV; Rate: bolus; Site: Other; mb3 22:27 Follow up: Response: No adverse reaction; IV Status: Completed infusion; IV Intake: mb3 500ml Disposition: 11/07/17 19:09 Transfer ordered to [facility]. Diagnosis are New onset seizures, Dehydration, Hypotension, Hypomagnesemia. - Reason for transfer: Higher level of care. - [facility] - Condition is Stable. - Problem is new. - Symptoms have improved. Addendum: 11/10/2017 08:51 Co-signature as Attending Physician, Fiedl Bruno MD I agree with the assessment and c miller plan of care. Signatures: Dispatcher [employer] [facility] Fidel Bruno MD MD cha Munoz, Edgar, SUPPORT DIRECTOR SUPPORT DIRECTOR em Johaan Caballero, LETI RN iw Arturo Rust, PA PA jr8 Rowdy Vasques, KILN OPERATOR HELPER KILN OPERATOR HELPER pm1 Jay Caldwell RN RN mb3 Corrections: (The following items were deleted from the chart) 11/07 16:21 16:17 Physician consultation: Davy Grossman MD was called at 16:19, was contacted at [facility] 16:19, regarding admission, to the telemetry unit. consult, patient's condition, [facility] 16:21 16:20 Hospitalization Ordered by Davy Grossman MD for Inpatient Admission. Preliminary jr8 diagnosis is Dehydration; Hypotension; Hypomagnesemia. Bed requested for Telemetry/MedSurg (Inpatient). Status is Inpatient Admission. Condition is Stable. Problem is new. Symptoms have improved. UTI on Admission? No. jr8 18:37 18:19 Head Brain Wo Cont+CT.RAD.BRZ ordered. [facility] 19:08 16:21 11/07/2017 16:20 Hospitalization Ordered by Kristi West MD for Inpatient pm1 Admission. Preliminary diagnosis is Dehydration; Hypotension; Hypomagnesemia. Bed requested for Telemetry/MedSurg (Inpatient). Status is Inpatient Admission. Condition is Stable. Problem is new. Symptoms have improved. UTI on Admission? No. jr8 22:32 19:09 11/07/2017 19:09 Transfer ordered to [facility]. Diagnosis is mb3 New onset seizures; Dehydration; Hypotension; Hypomagnesemia. Reason for transfer: Higher level of care. [facility]. Condition is Stable. Problem is new. Symptoms have improved. pm1
[2017-11-07] MEDS ORDERED: ACETAMINOPHEN 500 MG TAB PO PRN (17:02)
[2017-11-07] MEDS ORDERED: ONDANSETRON 4 MG/2 ML VIAL IV PRN (17:02)
[2017-11-07 17:44] LABS: Blood Morphology Comment NOT SEEN (NOT SEEN); Platelet Estimate INCR; Platelets, Giant PRESENT; Urine White Blood Cell Casts OK
[2017-11-07] MEDS ORDERED: NA CHLORIDE 0.9% 1,000 ML IV SCH (18:00)
[2017-11-07 18:26] LABS: Urine Blood NEGATIVE (NEG); Urine Glucose NEGATIVE (NEG); Urine Protein NEGATIVE (NEG); Urine pH 5.5 (5.0-7.0)
--- NOTE | 2017-11-07 18:51 | RAD REPORT ---
EXAM DESCRIPTION: CT - Head Brain Wo Cont - 11/07/2017 6:38 pm CLINICAL HISTORY: Seizure COMPARISON: Nov 05 2017 TECHNIQUE: Computed axial tomography of the head was obtained. IV contrast was not requested. All CT scans are performed using dose optimization technique as appropriate and may include automated exposure control or mA/KV adjustment according to patient size. FINDINGS: An intracranial bleed is not seen . The ventricles are normal in caliber. No extra-axial fluid collection is noted. Low-density the right parietal lobe likely represents an ol d infarct. Fluid within the sinuses/ mastoids is not seen. IMPRESSION: No acute intracranial abnormality is seen. If patient's symptoms persist MRI of the bra in would be recommended.
[2017-11-07] MEDS ORDERED: FOSPHENYTOIN PE 1,000 MG in NA CHLORIDE 0.9% 100 ML IV ONE (19:00)
[2017-11-07 22:38] VITALS: TEMP 97.6
[2017-11-07 22:45] VITALS: O2SAT 100
[2017-11-07 22:48] VITALS: BP 112/72
== END 2017-11-07 22:32 | disposition short-term general hospital (02) ==
LOC: ER 12:44 → UNDOADMIN 16:20 → ERHOLD 16:20 → ER 22:32
DX: G40.89 Other seizures (principal); E86.0 Dehydration; I95.9 Hypotension, unspecified; E83.42 Hypomagnesemia; N17.9 Acute kidney failure, unspecified; I10 Essential (primary) hypertension; F41.9 Anxiety disorder, unspecified; E78.5 Hyperlipidemia, unspecified; F32.9 Major depressive disorder, single episode, unspecified; J44.9 Chronic obstructive pulmonary disease, unspecified
CPT/HCPCS: 36415; 70450; 71045; 80048; 80076; 81003; 82550; 83735; 84484; 85025; 85610; 93005; 96361; 96365; 96366; 96367; 96375; 99285; J2405; J3475; J7030 ×2; Q2009